=== PATIENT | female | born 1990 | race Caucasian/White ===

== ENCOUNTER 2016-12-30 04:15 | Inpatient (IN) | payer BC, OTHER ==
[~2016-12-30] VITALS: Ht 162.6 cm; Wt 62.6 kg
[2016-12-30] VITALS (67 sets, daily range): BP systolic 84–128; BP diastolic 64–111; PULSE 74–108; RESP 16–21; Ht 162.6 cm; Wt 62.6 kg
[2016-12-30] MEDS ORDERED: VECURONIUM 100 MG in DEXTROSE 5% 100 ML IV ONE (04:36)
[2016-12-30] MEDS ORDERED: SODIUM CHLORIDE 0.9% 500 ML BAG IV* STA (04:36)
[2016-12-30] MEDS ORDERED: PROPOFOL 100 ML IV STA (04:36)
[2016-12-30] MEDS ORDERED: NORepinephrine 8MG/250 ML (PMX 250 ML ONE (04:37)
[2016-12-30 04:46] LABS: ABNORMAL IP MESSAGE 1; BASOPHIL # 0.1 10^3/ul (0.0-0.1); BASOPHILS % 0.7 % (0.0-2.0); EOSINOPHILS # 0.2 10^3/ul (0.0-0.5); EOSINOPHILS % 1.4 % (0.0-7.0); HEMATOCRIT 38.8 % (37.0-47.0); HEMOGLOBIN 12.1 g/dl (12.0-16.0); LYMPHOCYTES # 9.3 10^3/ul (0.8-2.9); LYMPHOCYTES % 71.1 % (15.0-51.0); MEAN CORPUSCULAR HEMOGLOBIN 28.2 pg (29.0-33.0); MEAN CORPUSCULAR HGB CONC 31.2 g/dl (32.0-37.0); MEAN CORPUSCULAR VOLUME 90.4 fl (82.0-101.0); MEAN PLATELET VOLUME 13.2 fl (7.4-10.4); MONOCYTE # 0.6 10^3/ul (0.3-0.9); MONOCYTES % 4.5 % (0.0-11.0); NEUTROPHIL # 2.4 10^3/ul (1.6-7.5); NEUTROPHILS % 18.2 % (39.0-77.0); NUCLEATED RED BLOOD CELLS # 0.1 10^3/ul (0.0-0.0); NUCLEATED RED BLOOD CELLS% 0.6 /100WBC (0.0-0.0); PLATELET COUNT 187 10^3/UL (140-415); RED BLOOD COUNT 4.29 10^6/ul (4.20-5.40); RED CELL DISTRIBUTION WIDTH 12.3 % (11.5-14.5); WHITE BLOOD COUNT 13.1 10^3/ul (4.8-10.8)
[2016-12-30 04:47] LABS: POSITIVE DIFF @See below
--- NOTE | 2016-12-30 04:48 | ERA ---
ER Documentation Chief Complaint Date/Time DATE: 12/30/16 TIME: 04:45 Chief Complaint HPI This is an unfortunate 26-year-old female was brought in by rescue for cardiac arrest. Patient had a Juan Luis tube placed in the field. Patient was shocked multiple times in the field. Started on amiodarone in the field. No history per EMS. Family at the bedside after the faxes the patient has no medical problems and had no complaints prior to going to bed tonight. noticed at around 4 AM that the patient was unresponsive. Last seen normal around 2 AM. Patient went to bed. She did take ibuprofen earlier in the day for a headache. Headache had resolved prior to going to bed. ROS All systems reviewed and are negative except as per history of present illness. Physical Exam Physical Exam Const: [] Head: Atraumatic Eyes: Normal Conjunctiva. Pupils fixed ENT: Normal External Ears, Nose and Mouth. Neck: Full range of motion..~ No meningismus. Resp: Clear to auscultation bilaterally Cardio: Regular rate and rhythm, no murmurs Abd: Soft, non tender, non distended. Normal bowel sounds Skin: No petechiae or rashes Back: No midline or flank tenderness Ext: No cyanosis, or edema Neur: Obtunded Psych: Deferred Results 24 hrs Laboratory Tests Test 12/30/16 04:14 White Blood Count Pending Red Blood Count Pending Hemoglobin Pending Hematocrit Pending Mean Corpuscular Volume Pending Mean Corpuscular Hemoglobin Pending Mean Corpuscular Hemoglobin Concent Pending Red Cell Distribution Width Pending Platelet Count Pending Mean Platelet Volume Pending Current Medications Medications (Trade) Dose Ordered Sig/Tong Route PRN Reason Start Time Stop Time Status Last Admin Dose Admin Norepinephrine (Levophed) 250 ml @ ud STK-MED ONCE .ROUTE 12/30/16 04:37 12/30/16 04:38 DC Sodium Chloride 500 ml 500 ml ONCE STAT IV* 12/30/16 04:36 12/30/16 04:39 DC Propofol 100 ml @ 0 mls/hr ONCE STAT IV 12/30/16 04:36 12/30/16 04:39 DC Vecuronium [place] 100 mg/ Dextrose 100 ml @ 0 mls/hr Q0M ONCE IV 12/30/16 04:36 12/30/16 04:39 DC Norepinephrine (Levophed) 250 ml @ 1.875 mls/ hr TITRATE IV 12/30/16 05:00 Procedures/MDM Endotracheal Intubation by me: Pre assessment performed. See preceding note for details. Pre-oxygenation performed with 100% oxygen RSI: Performed w/o complication or hypoxic events. Medications as ordered. Blade: [Mac 4] ET Tube: [7.5 cm Depth: 22 cm at the lip Intubation confirmed by colorimetric CO2, equal breath sounds, quiet over the stomach. Chest X-ray 1V Interpreted by me: 3 cm above the marcin ET tube. Normal soft tissue, No pneumothorax. Central Line Placement by me: Patient consented, sterilely draped, full prep, gown, glove, mask, time out performed. Anesthesia: 1% lidocaine locally Location: Left subclavian Device: Multiple lumen Technique: Seldinger technique. Secured with suture. Results: Venous return from all ports with easy saline flush. No complications. [XOXOXO]Guide wire retrieved and disposed of. [Chest X-ray 1V Interpreted by me: Central line in SVC, Normal soft tissue, No evidence of pneumothorax.] Medical decision-making: This is an unfortunate 26-year-old female suffered a cardiopulmonary arrest in the field and again here in the ER. We were able to reestablish pulses for the patient. Central line and intubation took place. Patient started on levo fed for blood pressure control. Started on hypothermia protocol. Patient will be taken by on-call diamond saw operator to Decontamination Worker. Critical Care: Time: 35 minutes Treatments/Evaluations: Close monitoring and treatment of unstable vital signs, cardiorespiratory, and neurologic status, while maintaining tight balance of fluid, respiratory, and cardiac interventions. Departure Diagnosis: Primary Impression: Cardiac arrest Condition: Critical SPEEDY LANDIS Dec 30, 2016 04:48
[2016-12-30] MEDS ORDERED: LIDOCAINE 1% (MDV) 20 ML INJ ONE (04:54)
[2016-12-30] MEDS ORDERED: MIDAZOLAM 1 MG/ML 2 ML INJ ONE (04:54)
[2016-12-30] MEDS ORDERED: HEPARIN 1000 UNITS/ML 10 ML INJ ONE (04:54)
[2016-12-30] MEDS ORDERED: VERAPAMIL 5 MG INJ ONE (04:54)
[2016-12-30] MEDS ORDERED: FENTAnyl 50 MCG/ML VIAL ONE (04:54)
[2016-12-30] MEDS ORDERED: NITROGLYCERIN (IC) 100 MCG/ML INJ ONE (04:55)
[2016-12-30] MEDS ORDERED: NORepinephrine 8MG/250 ML (PMX 250 ML IV SCH (05:00)
[2016-12-30 05:02] LABS: ADD UMIC NO; UR ASCORBIC ACID NEGATIVE (NEGATIVE); UR BILIRUBIN (Dip) NEGATIVE (NEGATIVE); UR BLOOD (Dip) NEGATIVE (NEGATIVE); UR CLARITY SLIGHTLY CLOUDY (CLEAR); UR COLOR YELLOW (YELLOW); UR GLUCOSE (Dip) NEGATIVE (NEGATIVE); UR KETONES (Dip) NEGATIVE (NEGATIVE); UR LEUKOCYTE ESTERASE (Dip) NEGATIVE Leu/ul (NEGATIVE); UR MUCUS MODERATE /HPF (NONE SEEN); UR NITRITE (Dip) NEGATIVE (NEGATIVE); UR RBC 0 /HPF (0-5); UR SPECIFIC GRAVITY (Dip) 1.025 (1.003-1.030); UR TOTAL PROTEIN (Dip) NEGATIVE (NEGATIVE); UR UROBILINOGEN (Dip) NEGATIVE (NEGATIVE)
[2016-12-30 05:07] LABS: INR 1.46; PROTIME 17.8 Sec (12.2-14.2); PT RATIO 1.4
[2016-12-30 05:08] LABS: PARTIAL THROMBOPLASTIN TIME 34.7 Sec (25.0-35.0)
[2016-12-30 05:31] LABS: ALBUMIN 2.3 g/dl (3.3-4.9); ALBUMIN/GLOBULIN RATIO 1.04; CALCIUM 8.7 mg/dl (8.4-10.2); CREATININE 0.97 mg/dl (0.44-1.00); TOTAL PROTEIN 4.5 g/dl (6.1-8.1)
[2016-12-30 05:42] LABS: TROPONIN-I 0.04 ng/ml (0.00-0.12)
--- NOTE | 2016-12-30 06:01 | OPR ---
Date/Time of Note Date/Time of Note DATE: 12/30/16 TIME: 05:52 Operative Report Free Text/Dictation Procedure Date:12/30/2016 Alarm Operator/surgeon:Ag Glover MD. Procedures Performed: 1)Left heart catheterization with selective left and right coronary angiography. 2)Left ventricle angiography 3)Right femoral angiography and Perclose closure device. Pre-operative Diagnosis:cardiac arrest, Ventricular fibrillation Post-operative Diagnosis: same plus cardiomyopathy Indications: 26 yo F with a h/o migraines who brought in s/p VFib cardiac arrest. Emergent cardiac cath for evaluation of coronaries (concern for possible coronary dissection) Description of Procedure: After emergency consent, the patient was brought to the cardiac catheterization lab. The procedure site was prepped and draped in usual manner. 3 mL lidocaine was injected into the right groin. Next using the Seldinger technique, the 5 swazi sheath was inserted into the right femoral artery. Next using the JL3.5 and Caleb, selective angiography of the left and right coronary arteries were obtained. The pigtail was then advanced into the ventricle and hemodynamics obtained. Left ventricle angiography was obtained. Next all equipment was removed and hemostasis was obtained by Perclose after right femoral angiography. Findings: Anatomy/Hemodynamics: Left main: normal LAD: normal Diagonal: normal Circumflex: normal Obtuse marginal: normal RCA: normal PDA: normal PLV: normal LV angiography: EF 20% with severe global hypokinesis with regional variation ( worse in inferior wall) LV:-Ao: no gradient LVEDP:19 mmHg OF NOTE: non-heparinized saline was used throughout the procedure due to the pt' s history of headache and no CT head performed. Estimated blood loss<10 mL. Specimen: none Complications: none Assessment: VF cardiac arrest: most likely due to underlying cardiomyopathy. Normal coronaries by cath Cardiomyopathy: EF 20% by cath. Nonischemic. Likely had a pre-existing cardiomyopathy but sometimes can be post arrest as well Headache/migraines Plan: -stat head CT to eval for intracranial pathology though pt has known migraines -hypothermia protocol as pt remains minimally responsive -no need for ASA, statin -if BP tolerates will eventually need coreg and ACEI/ARB -ICD evaluation later in course of hospitalization depending on neurologic recovery Surgeon see signature line AG GLOVER Dec 30, 2016 06:01
[2016-12-30 06:02] LABS: POTASSIUM 2.7 mmol/L (3.5-5.1)
--- NOTE | 2016-12-30 06:02 | CONS ---
Date/Time of Note Date/Time of Note DATE: 12/30/16 TIME: 06:02 Assessment/Plan Assessment/Plan Chief Complaint/Hosp Course VF cardiac arrest: most likely due to underlying cardiomyopathy. Normal coronaries by cath Cardiomyopathy: EF 20% by cath. Nonischemic. Likely had a pre-existing cardiomyopathy but sometimes can be post arrest as well Afib: seen on presenting EKG, likely in setting of arrest. Now in sinus Headache/migraines -stat head CT to eval for intracranial pathology though pt has known migraines -hypothermia protocol as pt remains minimally responsive -no need for ASA, statin -if BP tolerates will eventually need coreg and ACEI/ARB -ICD evaluation later in course of hospitalization depending on neurologic recovery -would maintain on amiodarone drip for now until electrically stable for 24 hrs. -echo Problems: Consultation Date/Type/Reason Admit Date/Time Date of Consultation: Dec 30, 2016 Type of Consultation: Interventional Cardiology Reason for Consultation VF cardiac arrest Referring Provider: SPEEDY LANDIS Hx of Present Illness 26 yo F with a h/o migraines who was brought in after being found unresponsive by her . She had multiple episodes of VF requiring defibrillation in the field and was thought to have lateral ST elevations as well. In the ER she arrested again but was resuscitated. ER EKG did not show a STEMI but due to the her VF cardiac arrest, she was emergently taken to the laborer cement gun placing where she was found to have normal coronaries but an EF of 20%. She remains minimally responsive. Her notes she had a headache prior to sleeping which is not unusual for her but it had resolved by the time she slept. She has not had any viral illnesses or cardiac issues in the past. She had been losing weight by choice but apparently no drugs or supplements were used. unable to obtain Exam/Review of Systems Vital Signs Vitals Vital Signs Date Time Temp Pulse Resp B/P Pulse Ox O2 Delivery O2 Flow Rate FiO2 12/30/16 05:10 50 12/30/16 04:35 85 16 100 Exam Constitutional: No alert, No distress Head: atraumatic, normocephalic ENMT: other (intubated) Neck: No jvd (unableto assess ) Respiratory: clear to auscultation, diminished breath sounds Cardiovascular: regular rate and rhythm, No edema, No systolic murmur Gastrointestinal: non-tender, soft, No distended Musculoskeletal: nl extremities to inspection Extremities: normal pulses Neurological: No nl mental status, No nl speech Results EKG in ED: afib, nonspecific diffuse TW changes Result Diagram: 12/30/16 0414 Results 24 hrs Laboratory Tests Test 12/30/16 04:14 12/30/16 04:40 White Blood Count 13.1 H Red Blood Count 4.29 Hemoglobin 12.1 Hematocrit 38.8 Mean Corpuscular Volume 90.4 Mean Corpuscular Hemoglobin 28.2 L Mean Corpuscular Hemoglobin Concent 31.2 L Red Cell Distribution Width 12.3 Platelet Count 187 Mean Platelet Volume 13.2 H Neutrophils % 18.2 L Lymphocytes % 71.1 H Monocytes % 4.5 Eosinophils % 1.4 Basophils % 0.7 Nucleated Red Blood Cells % 0.6 H Neutrophils # 2.4 Lymphocytes # 9.3 H Monocytes # 0.6 Eosinophils # 0.2 Basophils # 0.1 Nucleated Red Blood Cells # 0.1 H Prothrombin Time 17.8 H Prothrombin Time Ratio 1.4 INR International Normalized Ratio 1.46 Activated Partial Thromboplast Time 34.7 Urine Color YELLOW Urine Clarity SLIGHTLY CLOUDY A Urine pH 5.0 Urine Specific [place] 1.025 Urine Ketones NEGATIVE Urine Nitrite NEGATIVE Urine Bilirubin NEGATIVE Urine Urobilinogen NEGATIVE Urine Leukocyte Esterase NEGATIVE Urine Microscopic RBC 0 Urine Microscopic WBC 1 Urine Mucus MODERATE Urine Hemoglobin NEGATIVE Urine Glucose NEGATIVE Urine Total Protein NEGATIVE Medications Medications Current Medications Norepinephrine (Levophed) 250 ml @ 1.875 mls/ hr TITRATE IV ; Start 12/30/16 at 05:00 IMAN ALVAREZ Dec 30, 2016 06:02
[2016-12-30] MEDS ORDERED: LORAZEPAM 2 MG INJ ONE (06:25)
[2016-12-30] MEDS ORDERED: morphine 2 MG INJ IV PRN (06:30)
[2016-12-30] MEDS ORDERED: MIDAZOLAM (DRIP) 50 mg/50 mL 50 ML IV ONE (06:32)
[2016-12-30] MEDS: SOD CHLORIDE 0.9% 1,000 ML IV SCH ×2 (06:54→12:12)
[2016-12-30] MEDS ORDERED: ONDANSETRON 4 MG INJ IV PRN (07:00)
[2016-12-30] MEDS ORDERED: EPINEPHrine 0.1 MG/ML SYG ONE (07:00)
[2016-12-30] MEDS ORDERED: ACETAMINOPHEN 650 MG SUPP PR PRN ×2 (07:00)
[2016-12-30] MEDS ORDERED: NA BICARBONATE 8.4% 50 ML SYG ONE (07:00)
[2016-12-30] MEDS ORDERED: LIDOCAINE 100 MG SYRINGE ONE (07:00)
[2016-12-30] MEDS ORDERED: MEPERIDINE 25 MG INJ IV PRN ×2 (07:00)
[2016-12-30] MEDS ORDERED: CA CHLORIDE 10% 10 ML SYRINGE ONE (07:00)
[2016-12-30] MEDS ORDERED: LORAZEPAM 2 MG INJ IV PRN ×2 (07:00→07:30)
[2016-12-30] MEDS ORDERED: ACETAMINOPHEN 650MG/20.3ML CUP PO PRN (07:00)
[2016-12-30] MEDS ORDERED: VECURONIUM 100 MG in DEXTROSE 5% 100 ML IV SCH (07:30)
[2016-12-30] MEDS: ACCU-CHEK XX SCH ×17 (07:30→23:44)
[2016-12-30] MEDS ORDERED: POTASSIUM CHLORIDE 250 ML ONE (07:38)
[2016-12-30] MEDS ORDERED: INSULIN HUMAN REGULAR 100 UNIT in SOD CHLORIDE 0.9% 99 ML IV SCH (08:00)
[2016-12-30] MEDS ORDERED: POTASSIUM CHLORIDE 250 ML IVPB ONE (08:00)
--- NOTE | 2016-12-30 08:06 | HP ---
Date/Time of Note Date/Time of Note DATE: 12/30/16 TIME: 07:53 Assessment/Plan VTE Prophylaxis VTE Prophylaxis Intervention: SCD's Assessment/Plan Chief Complaint/Hosp Course This is a 26-year-old female being admitted to the ICU floor for: #1 cardiac arrest: Etiology unknown at this time ACLS was performed on the patient with ROSC. Patient was intubated. She was taken to the [facility] [employer] where she was found to have normal coronaries however there was an ejection fraction was approximately 20% Which could be the result of viral cardiomyopathy or secondary to arrest. Will obtain cardiac enzymes. Will check an echocardiogram. Cardiology is already on consult. Will initiate hypothermia protocol at this time however we will be obtaining a stat CAT scan of the head and if there is any sign of any bleeding likely will need to stop the hypothermia protocol as would be a contraindication. IV sedation with versed. Consult pulm. #2 Headache: patient was complaining of a headache prior to her going into arrest. Will order a stat CAT scan of the head. Will consult neurology. #3 Hypokalemia:. Could have contributed to #1, will replete. #4 Unexplained weight loss: Will check urine drug screen. denies patient was using any drugs that he knows of and denies any medications for weight loss. Will need to work up for possible underlying malignancy when patient is more stable and off of hypothermia protocol. #4 DVT and GI prophylaxis: SCDs,Protonix Further treatment strategy will be implemented as per the clinical course Problems: HPI/ROS Admit Date/Time Admit Date/Time Hx of Present Illness Chief complaint: Unresponsive This is a 26 yo F with a h/o migraines who was brought in after being found unresponsive by her . She had multiple episodes of VF requiring defibrillation in the field and was thought to have lateral ST elevations as well. In the ER she arrested again but was resuscitated. ER EKG did not show a STEMI but due to the her VF cardiac arrest, she was emergently taken to the [facility] [employer] laborer where she was found to have normal coronaries as per cardiology but an EF of 20%. Patient has been does state that she was complaining of a headache prior to undergoing unresponsive. He does state that over the course of the past 2 months she has lost a lot of weight unintentionally. She has gone from a size 8 to a size 2. The also states that approximately 3 months ago she was sick with a very bad cold for approximately 3 weeks did not take any antibiotics or anything at that time she did appear very unwell at that time. Allergies: NKDA Medications: See KIKA MIRANDA Subjective hx not possible: pt critical status (Patient currently intubated, unresponsive) PMH/Family/Social Past Medical History Migraines Past Surgical History Past Surgical Hx: no surgical history Family History Significant Family History: no pertinent family hx Social History Alcohol Use: none Smoking Status: Never smoker Drug Use: none Exam/Review of Systems Vital Signs Vitals Vital Signs Date Time Temp Pulse Resp B/P Pulse Ox O2 Delivery O2 Flow Rate FiO2 12/30/16 05:45 72 16 100 50 Exam Exam General: Patient is currently intubated on the [employer] table HEENT: Intubated, nonresponsive. Neck: No rigidity or meningismus Chest: Nontender Lungs: Clear to auscultation bilaterally no crackles rales or wheezing Heart: Normal S1-S2, Regular rhythm and rate. No overt murmurs appreciated on auscultation Abdomen: Soft , nontender, nondistended , bowel sounds are present. No guarding no rebound tenderness , No masses or organomegaly. No costovertebral temporal angle mass Extremities: Normal to inspection, no edema no cyanosis Neurologic: Unable to assess as patient is currently intubated and nonresponsive. Labs Result Diagram: 12/30/16 0414 12/30/16 0440 Medications Medications Current Medications Norepinephrine (Levophed) 250 ml @ 1.875 mls/ hr TITRATE IV ; Start 12/30/16 at 05:00 Miscellaneous Information (* Miscellaneous Pharmacy Order) HOLD all METFORMIN ... ONCE ONCE XX ; Start 12/30/16 at 06:30; Stop 12/30/16 at 06:31; Status UNV Morphine Sulfate (morphine) 2 mg Q2H PRN IV FOR NON CARDIAC PAIN (4-10); Start 12/30/16 at 06:30; Status UNV Ondansetron HCl (Zofran Inj) 4 mg Q6H PRN IV NAUSEA AND/OR VOMITING; Start at 07:00; Status UNV Acetaminophen (Tylenol Supp) 650 mg Q4H PRN MO PAIN LEVEL 1-3 OR FEVER; Start 12/30/16 at 07:00; Status UNV Lorazepam (Ativan) 1 mg Q2H PRN IV ANXIETY; Start 12/30/16 at 07:00; Status UNV Pantoprazole 40 mg 40 mg DAILY@06 IV ; Start 12/31/16 at 06:00; Status UNV Sodium Chloride (NS) 1,000 ml @ 60 mls/hr [id number] IV ; Start 12/30/16 at 06:54 ; Status UNV Acetaminophen (Tylenol Supp) 650 mg Q4H PRN MO TEMP > 37C; Start 12/30/16 at 07 :00; Status UNV Acetaminophen (Tylenol Liquid) 650 mg Q4H PRN PO TEMP > 37C; Start 12/30/16 at 07:00; Status UNV Acetaminophen (Tylenol Supp) 500 mg Q6H MO ; Start 12/31/16 at 07:00; Status UNV Acetaminophen (Tylenol Liquid) 500 mg Q6H PO ; Start 12/31/16 at 07:00; Status UNV Meperidine HCl (Demerol) 12.5 mg Q4H PRN IV POST OPERATIVE SHIVERING; Start at 07:00; Status UNV Meperidine HCl (Demerol) 25 mg Q4H PRN IV POST OPERATIVE SHIVERING; Start 12/30 at 07:00; Status UNV Eye Lubricant (Akwa Oint) 1 applic Q6 BOTH EYES ; Start 12/30/16 at 12:00; Status UNV Eye Lubricant (Artificial Tears Oph) 2 drop Q6 BOTH EYES ; Start 12/30/16 at 12: 00; Status UNV Lorazepam 2 mg 2 mg Q6H PRN IV seizure; Start 12/30/16 at 07:30; Status UNV Vecuronium [place] 100 mg/ Dextrose 100 ml @ 0 mls/hr TITRATE IV ; Start at 07:30; Status UNV Fentanyl (Sublimaze) 100 ml @ 2.5 mls/hr TITRATE IV ; Start 12/30/16 at 07:30; Status UNV Miscellaneous Information (* Miscellaneous Pharmacy Order) Discontinue all previ... PROTOCOL ONCE XX ; Start 12/30/16 at 07:30; Stop 12/30/16 at 07:31; Status UNV Diagnostic Test (Pha) 1 ea 1 ea Q1H XX ; Start 12/30/16 at 07:30; Status UNV Potassium Chloride 250 ml @ 62.5 mls/hr ONCE ONCE IVPB ; Start 12/30/16 at 08: 00; Stop 12/30/16 at 11:59; Status UNV Midazolam HCl (Versed) 50 ml @ 1 mls/hr TITRATE IV ; Start 12/30/16 at 08:00; Status UNV SANDOVAL AMBROSE Dec 30, 2016 08:05
[2016-12-30] MEDS ORDERED: DEXTROSE 50% 50 ML SYRINGE IV PRN ×2 (09:00)
[2016-12-30] MEDS ORDERED: GLUCOSE GEL 15 GRAM TUBE BUCCAL PRN (09:00)
[2016-12-30] MEDS ORDERED: GLUCAGON 1 MG INJ IM PRN (09:00)
[2016-12-30] MEDS ORDERED: GLUCOSE GEL 15 GRAM TUBE PO PRN ×2 (09:00)
--- NOTE | 2016-12-30 09:08 | RADRPT ---
PROCEDURE: CHEST - 1 VIEW CLINICAL INDICATION: 26-year-old female with chest pain/CodeSTEMI. TECHNIQUE: A single frontal AP supine portable view of the chest was performed. The images were reviewed on a PACS workstation. COMPARISON: None. FINDINGS: There is an endotracheal tube identified with the tip approximately 4.9 cm above the marcin. There i s a left subclavian central line with the tip at the cavoatrial junction region. The cardiomediastin al silhouette has a normal appearance. There is no evidence for an infiltrate. The pulmonary vascul arity is within normal limits. There is no evidence for pneumothorax or pneumomediastinum. The osseo us structures are intact. IMPRESSION: 1. No evidence for active cardiopulmonary disease. 2. Endotracheal tube with the tip in the [id number]-ond trachea. 3. Left subclavian central line with the tip at the cavoatrial junction region. .Derrick Thrasher MD, MD Date Time Electronically viewed and signed by .Derrick Thrasher MD, on 12/30/2016 05:32 .M/
[2016-12-30] MEDS ORDERED: FENTAnyl (DRIP) 1000 mcg/100mL 100 ML IV ONE (09:14)
[2016-12-30] MEDS: FENTAnyl (DRIP) 1000 mcg/100mL 100 ML IV SCH ×2 (09:22→23:01)
[2016-12-30] MEDS: VECURONIUM 100 MG in DEXTROSE 5% 100 ML IV SCH ×2 (09:26→09:45)
[2016-12-30 09:43] LABS: AADO2 Arterial 63.1 mmHg (7.0-24.0); Allen Test ACCEPTAB; Arterial Base Excess -13.3 mmol/L (-3.0-3); Arterial COHb 0.3 % (0.0-3.0); Arterial Fraction of Oxyhgb 98.8 % (93.0-99.0); Arterial HCO3 13.8 mmol/L (22.0-26.0); Arterial MetHb 0.4 % (0.0-1.5); Arterial Total Hemglobin 12.1 g/dl (12.0-18.0); MODE VENT - AC
[2016-12-30] MEDS: POTASSIUM CHLORIDE 250 ML IVPB SCH ×3 (09:46→17:14)
--- NOTE | 2016-12-30 09:47 | RADRPT ---
PROCEDURE: XR Abdomen. CLINICAL INDICATION: Nasogastric tube placement TECHNIQUE: A single AP view of the abdomen was obtained. COMPARISON: None. FINDINGS: The tip of the enteric tube projects over the left upper quadrant. There is a nonobstructive bowel gas pattern. Contrast from prior examination is noted within the erik al collecting system and bladder. No abnormal soft tissue calcifications are seen. The visualized portions of the lung bases are clear. The osseous structures are unremarkable. IMPRESSION: The tip of the nasogastric tube is within the gastric lumen. RPTAT: HH .Antonieta Lugo MD, Date Time Electronically viewed and signed by .Antonieta Lugo MD, on 12/30/2016 08:30 .G/
--- NOTE | 2016-12-30 09:48 | RADRPT ---
PROCEDURE: CT Brain without contrast. CLINICAL INDICATION: Hypothermia, altered level of consciousness TECHNIQUE: A CT of the brain was performed on a [employer] 64-slice CT scanner utilizing axial imaging from the skull base through the vertex without IV contrast. Multiplanar reformatted images were made. Images were reviewed on a PACS workstation. The CTDIvol is 45.01 mGy and the DLP is 72 0.23 mGycm. One or more of the following dose reduction techniques were used: automated exposure co ntrol, adjustment of the mA and/or kV according to patient size, or use of iterative reconstruction technique. COMPARISON: None FINDINGS: Increased attenuation of the dural sinuses and intracerebral vasculature may be related to dehydrati on, elevated hematocrit, or polycythemia.. There is no definite evidence of acute intracranial hemor rhage, mass effect, or midline shift. No extra-axial fluid collection is seen. The ventricles and s ulci are normal in size and configuration. The density of the brain is normal, and the sarmiento white ma tter differentiation appears well-preserved. The brainstem and posterior fossa are normal. The visua lized paranasal sinuses are clear. The calvarium is normal. There is fluid in the nasopharynx. Th e nasal pharyngeal wall appears thickened. IMPRESSION: 1. No evidence of acute intracranial pathology. 2. Hyperdense intracerebral vessels and dural sinuses, likely related to recent contrast administrat ion, dehydration, elevated hematocrit, or polycythemia. 3. Fluid in the nasopharynx and nasopharyngeal wall thickening. Correlate clinically. RPTAT: HCNS Physician Cuate Date Time Electronically viewed and signed by Physician Cuate on 12/30/2016 06:34 RAJENDRA/
[2016-12-30] MEDS ORDERED: LEVETIRACETAM 1000 MG (PMX) 100 ML IVPB ONE (10:00)
--- NOTE | 2016-12-30 11:26 | CONS ---
Date/Time of Note Date/Time of Note DATE: 12/30/16 TIME: 11:18 Assessment/Plan Assessment/Plan Additional Assessment/Plan Chest x-ray was reviewed from today which is essentially clear. CT of the head is unremarkable. Current ventilator settings are AC of 16, tidal volume 500, PEEP of 0, 50% FiO2. Patient currently on Versed drip at 3 mg/h. Assessment recommendations; 1. Patient admitted with cardiac arrest etiology is unclear, possibly hypokalemic in etiology. Patient underwent emergent coronary angiography which was negative. However patient has a poor EF likely from cardiac arrest. 2. No prior medical history other than recent weight loss. Continue current treatment. Ventilator settings have been adjusted. Initiate paralytic administration as long as patient is on hypothermia protocol. Once the patient is off hypothermia protocol she will be evaluated for adequacy of mental status. Meanwhile administer Keppra and Depakote. I did have a detailed discussion with the patient's at bedside and answered all his questions. Prognosis is guarded and depends entirely upon adequate mental status recovery. 40 minutes of critical care time was spent evaluating the patient. Consultation Date/Type/Reason Admit Date/Time Date of Consultation: Dec 30, 2016 Type of Consultation: Pulmonary/critical care Reason for Consultation Consultation requested for evaluation of respiratory failure. Patient status post cardiac arrest. History of presenting any; patient is a young 26-year-old white lady who was brought into the emergency room with cardiac arrest which she sustained at home. Patient's the patient has not been feeling well in terms of significant weight loss over the last several months. However last evening he went to wake her up and the patient was unresponsive patient had no pulse EMS for quadrant and the patient was attended to by them and long CPR was done and removed to the hospital with revival of vital signs. By the time I saw the patient the patient is in ICU, orally intubated, on hypothermia protocol. Patient having occasional myoclonic jerking. Past medical history; unremarkable. Except for recent weight loss of unknown etiology. Patient has not sought any medical help for that. Medications; reviewed. Allergies; none. Social history; most of any smoking alcohol or drug abuse. Family history; patient is , has no children. Occupation history; patient works in a physician's office. Review systems; unable to be obtained. General exam; young woman, orally intubated, having occasional facial myoclonic jerking. Past Surgical History Past Surgical Hx: no surgical history Social History Alcohol Use: none Smoking Status: Never smoker Drug Use: none Exam/Review of Systems Vital Signs Vitals Vital Signs Date Time Temp Pulse Resp B/P Pulse Ox O2 Delivery O2 Flow Rate FiO2 12/30/16 08:45 95.4 92 16 126/92 100 Mechanical Ventilator 12/30/16 05:45 50 Exam HEENT exam; supple neck, no JVD. No lymphadenopathy. Midline trachea. No thyromegaly. Orally intubated. Patient has fair dentition. Pupils are small bilaterally. Chest exam; clear to auscultation. S1-S2 audible, no murmurs. Regular rhythm. Abdomen exam; soft, no organomegaly. Bowel sounds are absent. Abdomen is nondistended. Extremity exam; no peripheral edema. TABLE TOP TILE SETTER exam; patient is sedated, having myoclonic jerking involving facial muscles. Results Result Diagram: 12/30/16 0414 12/30/16 0440 Results 24 hrs Laboratory Tests Test 12/30/16 04:14 12/30/16 04:36 12/30/16 04:40 12/30/16 07:20 White Blood Count 13.1 H Red Blood Count 4.29 Hemoglobin 12.1 Hematocrit 38.8 Mean Corpuscular Volume 90.4 Mean Corpuscular Hemoglobin 28.2 L Mean Corpuscular Hemoglobin Concent 31.2 L Red Cell Distribution Width 12.3 Platelet Count 187 Mean Platelet Volume 13.2 H Neutrophils % 18.2 L Lymphocytes % 71.1 H Monocytes % 4.5 Eosinophils % 1.4 Basophils % 0.7 Nucleated Red Blood Cells % 0.6 H Neutrophils # 2.4 Lymphocytes # 9.3 H Monocytes # 0.6 Eosinophils # 0.2 Basophils # 0.1 Nucleated Red Blood Cells # 0.1 H Blood Gas Specimen Source Blood arterial Arterial Blood Date Drawn 12/30/2016 4:40:44 AM Arterial Blood pH (Temp corrected) 7.201 *L Arterial Blood pCO2 (Temp correct) 36.0 Arterial Blood pO2 (Temp corrected) 613.9 H Arterial Blood HCO3 13.8 L Arterial Blood Base Excess -13.3 L Arterial Blood Oxygen Saturation 99.5 H Virgilio Test ACCEPTAB Arterial Blood Gas Puncture Site Right Radial Arterial Blood Carboxyhemoglobin 0.3 Arterial Blood Methemoglobin 0.4 Blood Gas A-a O2 Differential 63.1 H Oxyhemoglobin Percent 98.8 Total Hemoglobin 12.1 Blood Gas Temperature 37.0 Blood Gas Respiration Rate 16.0 Blood Gas Actual Respiration Rate 24 Blood Gas Modality VENT - AC FiO2 100.0 Blood Gas Tidal Volume 500.0 Blood Gas Inspiratory Pressure 14.0 Blood Gas Critical Value Read Back Nathaly LANDIS MD Blood Gas Notified Whom KM Blood Gas Notified Time 12/30/2016 4:52:43 AM Prothrombin Time 17.8 H Prothrombin Time Ratio 1.4 INR International Normalized Ratio 1.46 Activated Partial Thromboplast Time 34.7 Urine Color YELLOW Urine Clarity SLIGHTLY CLOUDY A Urine pH 5.0 Urine Specific [place] 1.025 Urine Ketones NEGATIVE Urine Nitrite NEGATIVE Urine Bilirubin NEGATIVE Urine Urobilinogen NEGATIVE Urine Leukocyte Esterase NEGATIVE Urine Microscopic RBC 0 Urine Microscopic WBC 1 Urine Mucus MODERATE Urine Hemoglobin NEGATIVE Urine Glucose NEGATIVE Urine Total Protein NEGATIVE Sodium Level 140 Potassium Level 2.7 *L Chloride Level 112 H Carbon Dioxide Level 15 L Anion Gap 16 Blood Urea Nitrogen 13 Creatinine 0.97 Glucose Level 288 H Calcium Level 8.7 Phosphorus Level 10.0 H Magnesium Level 2.0 Total Bilirubin 0.0 L Direct Bilirubin 0.00 Indirect Bilirubin 0.0 Aspartate Amino Transf (AST/SGOT) 173 H Alanine Aminotransferase (ALT/SGPT) 198 H Alkaline Phosphatase 35 L Troponin I 0.040 Total Protein 4.5 L Albumin 2.3 L Globulin 2.20 Albumin/Globulin Ratio 1.04 Bedside Glucose 193 Medications Medications Current Medications Norepinephrine (Levophed) 250 ml @ 1.875 mls/ hr TITRATE IV ; Start 12/30/16 at 05:00 Morphine Sulfate (morphine) 2 mg Q2H PRN IV FOR NON CARDIAC PAIN (4-10); Start 12/30/16 at 06:30 Ondansetron HCl (Zofran Inj) 4 mg Q6H PRN IV NAUSEA AND/OR VOMITING; Start at 07:00 Acetaminophen (Tylenol Supp) 650 mg Q4H PRN [place] PAIN LEVEL 1-3 OR FEVER; Start 12/30/16 at 07:00 Lorazepam (Ativan) 1 mg Q2H PRN IV ANXIETY Last administered on 12/30/16t 09:41 ; Admin Dose 1 MG; Start 12/30/16 at 07:00 Famotidine 20 mg 20 mg DAILY IV ; Start 12/31/16 at 09:00 Sodium Chloride (NS) 1,000 ml @ 60 mls/hr [id number] IV Last administered on 12/30 06:54; Admin Dose 60 MLS/HR; Start 12/30/16 at 06:54 Acetaminophen (Tylenol Supp) 650 mg Q4H PRN [place] TEMP > 37C; Start 12/30/16 at 07 :00 Acetaminophen (Tylenol Liquid) 650 mg Q4H PRN PO TEMP > 37C; Start 12/30/16 at 07:00 Acetaminophen (Tylenol Supp) 500 mg Q6H [place] ; Start 12/31/16 at 07:00 Acetaminophen (Tylenol Liquid) 500 mg Q6H PO ; Start 12/31/16 at 07:00 Meperidine HCl (Demerol) 12.5 mg Q4H PRN IV POST OPERATIVE SHIVERING; Start at 07:00 Meperidine HCl (Demerol) 25 mg Q4H PRN IV POST OPERATIVE SHIVERING; Start 12/30 at 07:00 Eye Lubricant (Akwa Oint) 1 applic Q6 BOTH EYES ; Start 12/30/16 at 12:00 Eye Lubricant (Artificial Tears Oph) 2 drop Q6 BOTH EYES ; Start 12/30/16 at 12: 00 Lorazepam 2 mg 2 mg Q6H PRN IV seizure Last administered on 12/30/16 09:41; Admin Dose 2 MG; Start 12/30/16 at 07:30 Fentanyl (Sublimaze) 100 ml @ 2.5 mls/hr TITRATE IV Last administered on 09:22; Admin Dose 2.5 MLS/HR; Start 12/30/16 at 07:30 Diagnostic Test (Pha) 1 ea 1 ea Q1H XX ; Start 12/30/16 at 07:30 Midazolam HCl 50 ml @ 1 mls/hr TITRATE IV ; Start 12/30/16 at 08:00 Potassium Chloride 250 ml @ 62.5 mls/hr Q4H IVPB Last administered on 09:46; Admin Dose 62.5 MLS/HR; Start 12/30/16 at 09:00; Stop 12/30/16 at 16 :59 Vecuronium [place]/Dextrose (Norcuron/D5W) 100 ml @ 3.13 mls/hr TITRATE IV Last administered on 12/30/16t 09:45; Admin Dose 3.13 MLS/HR; Start 12/30/16 at 09:00 Miscellaneous Information 1 ea NOTE XX ; Start 12/30/16 at 09:00 Glucose (Glutose) 15 gm Q15M PRN PO DECREASED GLUCOSE; Start 12/30/16 at 09:00 Glucose (Glutose) 22.5 gm Q15M PRN PO DECREASED GLUCOSE; Start 12/30/16 at 09: 00 Dextrose (D50w Syringe) 25 ml Q15M PRN IV DECREASED GLUCOSE; Start 12/30/16 at 09:00 Dextrose (D50w Syringe) 50 ml Q15M PRN IV DECREASED GLUCOSE; Start 12/30/16 at 09:00 Glucagon (Glucagen) 1 mg Q15M PRN IM DECREASED GLUCOSE; Start 12/30/16 at 09:00 Glucose 15 gm 15 gm Q15M PRN BUCCAL DECREASED GLUCOSE; Start 12/30/16 at 09:00 Valproate Sodium 500 mg/Dextrose 55 ml @ 55 mls/hr Q8 IVPB ; Start 12/30/16 at 10:30 Levetiracetam/ Sodium Chloride (Keppra Iv/NS) 107.5 ml @ 430 mls/hr Q12 IVPB ; Start 12/30/16 at 12:30 PRABHAKAR BRIGGS Dec 30, 2016 11:26
[2016-12-30] MEDS: VALPROATE INJ 500 MG in DEXTROSE 5% 50 ML IVPB SCH ×3 (11:44→22:16)
--- NOTE | 2016-12-30 11:44 | CONS ---
Date/Time of Note Date/Time of Note DATE: 12/30/16 TIME: 11:37 Assessment/Plan Assessment/Plan Chief Complaint/Hosp Course 26 yo female w recent unintentional weight loss, hypokalemia (K: 2.7) admitted cardiac arrest with post arrest cardiomyopathy currently being treated with hypothermia protocol on VPA, Keppra and Versed drip for seizures. -EEG after hypothermia completed tomorrow am -MRI Brain w/o contrast when stable -Increase Versed for further seizures noted -malignancy work up when more stable -will continue to follow Problems: Consultation Date/Type/Reason Admit Date/Time 12/30/16 Date of Consultation: Dec 30, 2016 Type of Consultation: Neurology Reason for Consultation post cardiac arrest seizures Referring Provider: SANDOVAL AMBROSE Hx of Present Illness 26 year old female with history of unintentional weight loss over the last several months, migraine headaches, recent heavy periods and dysfunctional bleeding admitted with cardiac arrest unclear etiology labs significant for hypokalemia received coronary angiography negative for occlusive disease with EF : 20%. Per history obtained from he had awoken in the middle of the night noted his was difficult to arouse after he returned to bed from using the bathroom (usually she awakens) unclear amount of time she was down for. Initial Head CT showed dense vessels no areas of ischemia identified. She was admitted to the ICU early this morning notable seizure activity placed on Versed drip, Fentanyl drip, Keppra 1 gram loaded and Depakote 500 mg q8h also initiated. No further seizures have been noted. Subjective hx not possible: pt non-verbal, pt critical Past Medical History Medical History: no pertinent history Past Surgical History Past Surgical Hx: no surgical history Social History Alcohol Use: none Smoking Status: Never smoker Drug Use: none Exam/Review of Systems Vital Signs Vitals Vital Signs Date Time Temp Pulse Resp B/P Pulse Ox O2 Delivery O2 Flow Rate FiO2 12/30/16 08:45 95.4 92 16 126/92 100 Mechanical Ventilator 12/30/16 05:45 50 Exam intubated sedated limited exam no seizures noted CN: pupils 1 mm non reactive heavily sedated absent corneals absent gag no purposeful movement depressed reflexes mute toes Results Result Diagram: 12/30/16 0414 12/30/16 0440 Results 24 hrs Laboratory Tests Test 12/30/16 04:14 12/30/16 04:36 12/30/16 04:40 12/30/16 07:20 White Blood Count 13.1 H Red Blood Count 4.29 Hemoglobin 12.1 Hematocrit 38.8 Mean Corpuscular Volume 90.4 Mean Corpuscular Hemoglobin 28.2 L Mean Corpuscular Hemoglobin Concent 31.2 L Red Cell Distribution Width 12.3 Platelet Count 187 Mean Platelet Volume 13.2 H Neutrophils % 18.2 L Lymphocytes % 71.1 H Monocytes % 4.5 Eosinophils % 1.4 Basophils % 0.7 Nucleated Red Blood Cells % 0.6 H Neutrophils # 2.4 Lymphocytes # 9.3 H Monocytes # 0.6 Eosinophils # 0.2 Basophils # 0.1 Nucleated Red Blood Cells # 0.1 H Blood Gas Specimen Source Blood arterial Arterial Blood Date Drawn 12/30/2016 4:40:44 AM Arterial Blood pH (Temp corrected) 7.201 *L Arterial Blood pCO2 (Temp correct) 36.0 Arterial Blood pO2 (Temp corrected) 613.9 H Arterial Blood HCO3 13.8 L Arterial Blood Base Excess -13.3 L Arterial Blood Oxygen Saturation 99.5 H Virgilio Test ACCEPTAB Arterial Blood Gas Puncture Site Right Radial Arterial Blood Carboxyhemoglobin 0.3 Arterial Blood Methemoglobin 0.4 Blood Gas A-a O2 Differential 63.1 H Oxyhemoglobin Percent 98.8 Total Hemoglobin 12.1 Blood Gas Temperature 37.0 Blood Gas Respiration Rate 16.0 Blood Gas Actual Respiration Rate 24 Blood Gas Modality VENT - AC FiO2 100.0 Blood Gas Tidal Volume 500.0 Blood Gas Inspiratory Pressure 14.0 Blood Gas Critical Value Read Back Nathaly LANDIS MD Blood Gas Notified Whom Blood Gas Notified Time 12/30/2016 4:52:43 AM Prothrombin Time 17.8 H Prothrombin Time Ratio 1.4 INR International Normalized Ratio 1.46 Activated Partial Thromboplast Time 34.7 Urine Color YELLOW Urine Clarity SLIGHTLY CLOUDY A Urine pH 5.0 Urine Specific [place] 1.025 Urine Ketones NEGATIVE Urine Nitrite NEGATIVE Urine Bilirubin NEGATIVE Urine Urobilinogen NEGATIVE Urine Leukocyte Esterase NEGATIVE Urine Microscopic RBC 0 Urine Microscopic WBC 1 Urine Mucus MODERATE Urine Hemoglobin NEGATIVE Urine Glucose NEGATIVE Urine Total Protein NEGATIVE Sodium Level 140 Potassium Level 2.7 *L Chloride Level 112 H Carbon Dioxide Level 15 L Anion Gap 16 Blood Urea Nitrogen 13 Creatinine 0.97 Glucose Level 288 H Calcium Level 8.7 Phosphorus Level 10.0 H Magnesium Level 2.0 Total Bilirubin 0.0 L Direct Bilirubin 0.00 Indirect Bilirubin 0.0 Aspartate Amino Transf (AST/SGOT) 173 H Alanine Aminotransferase (ALT/SGPT) 198 H Alkaline Phosphatase 35 L Troponin I 0.040 Total Protein 4.5 L Albumin 2.3 L Globulin 2.20 Albumin/Globulin Ratio 1.04 Bedside Glucose 193 Test 12/30/16 11:14 Bedside Glucose 140 Medications Medications Current Medications Norepinephrine (Levophed) 250 ml @ 1.875 mls/ hr TITRATE IV ; Start 12/30/16 at 05:00 Morphine Sulfate (morphine) 2 mg Q2H PRN IV FOR NON CARDIAC PAIN (4-10); Start 12/30/16 at 06:30 Ondansetron HCl (Zofran Inj) 4 mg Q6H PRN IV NAUSEA AND/OR VOMITING; Start at 07:00 Acetaminophen (Tylenol Supp) 650 mg Q4H PRN [place] PAIN LEVEL 1-3 OR FEVER; Start 12/30/16 at 07:00 Lorazepam (Ativan) 1 mg Q2H PRN IV ANXIETY Last administered on 12/30/16 09:41 ; Admin Dose 1 MG; Start 12/30/16 at 07:00 Famotidine 20 mg 20 mg DAILY IV ; Start 12/31/16 at 09:00 Sodium Chloride (NS) 1,000 ml @ 60 mls/hr [id number] IV Last administered on 12/30 06:54; Admin Dose 60 MLS/HR; Start 12/30/16 at 06:54 Acetaminophen (Tylenol Supp) 650 mg Q4H PRN [place] TEMP > 37C; Start 12/30/16 at 07 :00 Acetaminophen (Tylenol Liquid) 650 mg Q4H PRN PO TEMP > 37C; Start 12/30/16 at 07:00 Acetaminophen (Tylenol Supp) 500 mg Q6H [place] ; Start 12/31/16 at 07:00 Acetaminophen (Tylenol Liquid) 500 mg Q6H PO ; Start 12/31/16 at 07:00 Meperidine HCl (Demerol) 12.5 mg Q4H PRN IV POST OPERATIVE SHIVERING; Start at 07:00 Meperidine HCl (Demerol) 25 mg Q4H PRN IV POST OPERATIVE SHIVERING; Start 12/30 at 07:00 Eye Lubricant (Akwa Oint) 1 applic Q6 BOTH EYES ; Start 12/30/16 at 12:00 Eye Lubricant (Artificial Tears Oph) 2 drop Q6 BOTH EYES ; Start 12/30/16 at 12: 00 Lorazepam 2 mg 2 mg Q6H PRN IV seizure Last administered on 12/30/16 09:41; Admin Dose 2 MG; Start 12/30/16 at 07:30 Fentanyl (Sublimaze) 100 ml @ 2.5 mls/hr TITRATE IV Last administered on 09:22; Admin Dose 2.5 MLS/HR; Start 12/30/16 at 07:30 Diagnostic Test (Pha) 1 ea 1 ea Q1H XX ; Start 12/30/16 at 07:30 Midazolam HCl 50 ml @ 1 mls/hr TITRATE IV ; Start 12/30/16 at 08:00 Potassium Chloride 250 ml @ 62.5 mls/hr Q4H IVPB Last administered on 09:46; Admin Dose 62.5 MLS/HR; Start 12/30/16 at 09:00; Stop 12/30/16 at 16 :59 Vecuronium [place]/Dextrose (Norcuron/D5W) 100 ml @ 3.13 mls/hr TITRATE IV Last administered on 12/30/16 09:45; Admin Dose 3.13 MLS/HR; Start 12/30/16 at 09:00 Miscellaneous Information 1 ea NOTE XX ; Start 12/30/16 at 09:00 Glucose (Glutose) 15 gm Q15M PRN PO DECREASED GLUCOSE; Start 12/30/16 at 09:00 Glucose (Glutose) 22.5 gm Q15M PRN PO DECREASED GLUCOSE; Start 12/30/16 at 09: 00 Dextrose (D50w Syringe) 25 ml Q15M PRN IV DECREASED GLUCOSE; Start 12/30/16 at 09:00 Dextrose (D50w Syringe) 50 ml Q15M PRN IV DECREASED GLUCOSE; Start 12/30/16 at 09:00 Glucagon (Glucagen) 1 mg Q15M PRN IM DECREASED GLUCOSE; Start 12/30/16 at 09:00 Glucose 15 gm 15 gm Q15M PRN BUCCAL DECREASED GLUCOSE; Start 12/30/16 at 09:00 Valproate Sodium 500 mg/Dextrose 55 ml @ 55 mls/hr Q8 IVPB ; Start 12/30/16 at 10:30 Levetiracetam/ Sodium Chloride (Keppra Iv/NS) 107.5 ml @ 430 mls/hr Q12 IVPB ; Start 12/30/16 at 12:30 IRIS PATEL MD Dec 30, 2016 11:44
[2016-12-30] MEDS: ARTIFICIAL TEARS 15 ML OPH BOTH EYES SCH ×3 (12:41→23:44)
[2016-12-30] MEDS: LEVETIRACETAM IV 750 MG in SOD CHLORIDE 0.9% 100 ML IVPB SCH ×2 (12:41→21:08)
[2016-12-30] MEDS: OCULAR LUBRICANT 3.5 GM OPH OINT BOTH EYES SCH ×3 (12:41→23:44)
--- NOTE | 2016-12-30 12:50 | RADRPT ---
Echocardiogram Report Patient Name: DANY GUEVARA Gender: Female Date: 1990 Study Date: 30-Dec-2016 Clicker Operator: Kali [facility] Location: 105 Ref. Physician: IMAN ALVAREZ Quality: Adequate Procedures: Transthoracic echocardiogram with complete 2D, M-Mode, and doppler examination. Indications: S/P VF Arrest. 2D/M Mode Doppler Measurement Value Normal Ranges Measurement Value Normal Ranges LVIDd 2D 4.5 3.5 - 5.6 cm AV Peak Phuc 1.0 m/sec LVIDs 2D 3.9 2.1 - 4.1 cm AV Peak PG 4.0 mmHg FS 2D 13.3 % LVOT Peak Phuc 0.8 m/sec LVPWd 2D 1.0 0.6 - 1.1 cm LVOT Peak PG 2.0 mmHg IVSd 2D 0.9 0.6 - 1.1 cm MV E Peak Phuc 1.0 m/sec IVS/LVPW 2D 0.9 MV Decel Time 85 msec AoR Diam 2D 2.5 2.0 - 3.7 cm LA/Ao 2D 1 0 - 1 EDV 2D 92.3 cm3 ESV 2D 60.2 cm3 LA Dimen 2D 3.0 2.3 - 4.0 cm Findings Left Ventricle: Normal left ventricular cavity size. Normal left ventricular wall thickness. Severe global left ventricular systolic dysfunction. Ejection fraction is visually estimated at 2025 %. Abnormal Diastolic Function. Right Ventricle: Normal right ventricular size. Normal right ventricular systolic function. Left Atrium: The left atrium is normal in size. Right Atrium: The right atrium is normal in size. Mitral Valve: Mild mitral leaflet calcification. Mild mitral annular calcification. Trace mitral regurgitation. Aortic Valve: Aortic cusps appear mildly calcified. Trace aortic valve regurgitation. Tricuspid Valve: Normal appearance of the tricuspid valve. Unable to obtain RVSP due to minimal presence of tricuspid regurgitation. There is trace tricuspid regurgitation. Pulmonic Valve: Pulmonic valve not well visualized. There is trace pulmonic regurgitation. Pericardium: Normal pericardium with no significant pericardial effusion. Aorta: Normal aortic root. IVC: Inferior vena cava without respiratory collapse, however, patient on ventilator. Conclusions 1.The left ventricle is normal in size with severely reduced systolic function. 2.Estimated left ventricular ejection fraction of 20-25%. Electronically Signed By: Alexys Joseph 30-Dec-2016 12:50:05 -0700 Patient Name: DANY GUEVARA Study Date: 30-Dec-[id number]
[2016-12-30 12:55] LABS: BARBITURATES Negative (NEGATIVE); BENZODIAZEPINES Negative (NEGATIVE); CANNABINOIDS Negative (NEGATIVE); COCAINE Negative (NEGATIVE); OPIATES Negative (NEGATIVE)
[2016-12-30] MEDS: MIDAZOLAM (DRIP) 50 mg/50 mL 50 ML IV SCH ×3 (13:11→22:58)
[2016-12-30 13:34] LABS: AADO2 Arterial 50.8 mmHg (7.0-24.0); Arterial Base Excess -11.9 mmol/L (-3.0-3); Arterial COHb 0.3 % (0.0-3.0); Arterial Fraction of Oxyhgb 98.6 % (93.0-99.0); Arterial HCO3 13.1 mmol/L (22.0-26.0); Arterial MetHb 0.2 % (0.0-1.5); Arterial Total Hemglobin 13.3 g/dl (12.0-18.0); MODE VENT - AC
[2016-12-30 14:43] LABS: ABNORMAL IP MESSAGE 1; BASOPHILS % 0.1 % (0.0-2.0); HEMOGLOBIN 12.3 g/dl (12.0-16.0); LYMPHOCYTES # 0.7 10^3/ul (0.8-2.9); MEAN CORPUSCULAR HEMOGLOBIN 28.2 pg (29.0-33.0); MEAN CORPUSCULAR HGB CONC 32.4 g/dl (32.0-37.0); MEAN CORPUSCULAR VOLUME 87.2 fl (82.0-101.0); MEAN PLATELET VOLUME 11.6 fl (7.4-10.4); MONOCYTES % 4.4 % (0.0-11.0); NEUTROPHIL # 20.1 10^3/ul (1.6-7.5); PLATELET COUNT 227 10^3/UL (140-415); RED BLOOD COUNT 4.36 10^6/ul (4.20-5.40); RED CELL DISTRIBUTION WIDTH 12.2 % (11.5-14.5); WHITE BLOOD COUNT 21.9 10^3/ul (4.8-10.8)
[2016-12-30 14:47] LABS: POSITIVE DIFF @See below
[2016-12-30 15:08] LABS: ALBUMIN/GLOBULIN RATIO 1.19
[2016-12-30 15:34] LABS: ALBUMIN 3.1 g/dl (3.3-4.9); CALCIUM 7.9 mg/dl (8.4-10.2); CREATININE 0.69 mg/dl (0.44-1.00); TOTAL PROTEIN 5.7 g/dl (6.1-8.1)
[2016-12-30 15:55] LABS: BILIRUBIN,INDIRECT 0.1 mg/dl (0-1.1); BILIRUBIN,TOTAL 0.1 mg/dl (0.2-1.3)
[2016-12-30] MEDS ORDERED: VANCOMYCIN IV PER PHARMACY XX SCH (17:00)
[2016-12-30] MEDS ORDERED: MAGNESIUM SULFATE 2 GM/50 ML 50 ML IVPB ONE (17:30)
[2016-12-30] MEDS ORDERED: VANCOMYCIN 1.25 GM in SOD CHLORIDE 0.9% 250 ML IVPB SCH (18:00)
[2016-12-30] MEDS ORDERED: DEXTROSE 5%-0.9% NACL 1,000 ML IV SCH (20:30)
[2016-12-30] MEDS ORDERED: LEVETIRACETAM 500 MG (PMX) 100 ML IVPB SCH (21:00)
[2016-12-30] MEDS: CEFEPIME 1GM/50 ML (PMX) 50 ML IVPB SCH (21:09)
[2016-12-30 21:26] LABS: Arterial COHb 0.3 % (0.0-3.0); Arterial Fraction of Oxyhgb 98.5 % (93.0-99.0); Arterial MetHb 0.2 % (0.0-1.5); Arterial Total Hemglobin 14.4 g/dl (12.0-18.0); MODE VENT - AC
[2016-12-30] MEDS ORDERED: SOD CHLORIDE 0.9% 1,000 ML IV ONE (21:30)
[2016-12-30 21:36] LABS: AADO2 Arterial 29.8 mmHg (7.0-24.0)
[2016-12-31] VITALS (76 sets, daily range): BP systolic 91–123; BP diastolic 64–95; PULSE 75–115; RESP 16–23
[2016-12-31 00:04] LABS: CALCIUM 6.6 mg/dl (8.4-10.2); CREATININE 0.44 mg/dl (0.44-1.00); POTASSIUM 5.6 mmol/L (3.5-5.1)
--- NOTE | 2016-12-31 00:15 | RADRPT ---
Vent Rate: 86 bpm RR Interval: 0 msec GA Interval: 198 msec QRS Duration: 98 msec QT Interval: 374 msec QTC Interval: 447 msec P-R-T [place]: 70 - 60 - 81 degrees Normal sinus rhythm Normal ECG Electronically Signed By: Isidro Perez [id number]
[2016-12-31 00:37] LABS: MAGNESIUM 4.2 mg/dl (1.7-2.5)
[2016-12-31] MEDS: NORepinephrine 8MG/250 ML (PMX 250 ML IV SCH (00:50)
[2016-12-31] MEDS ORDERED: CALCIUM GLUCONATE 10% 1 GM in SOD CHLORIDE 0.9% 100 ML IVPB ONE (01:00)
[2016-12-31] MEDS: ACCU-CHEK XX SCH ×6 (01:30→05:59)
[2016-12-31] MEDS: MIDAZOLAM (DRIP) 50 mg/50 mL 50 ML IV SCH ×3 (03:10→18:28)
[2016-12-31] MEDS: VANCOMYCIN 750 MG in SOD CHLORIDE 0.9% 150 ML IVPB SCH ×3 (03:11→19:58)
[2016-12-31 04:24] LABS: WHITE BLOOD COUNT 25.5 10^3/ul (4.8-10.8)
[2016-12-31 04:25] LABS: ABNORMAL IP MESSAGE 1; BASOPHILS % 0.1 % (0.0-2.0); HEMOGLOBIN 12.7 g/dl (12.0-16.0); LYMPHOCYTES # 0.9 10^3/ul (0.8-2.9); LYMPHOCYTES % 3.7 % (15.0-51.0); MEAN CORPUSCULAR HEMOGLOBIN 28.7 pg (29.0-33.0); MEAN CORPUSCULAR HGB CONC 33.4 g/dl (32.0-37.0); MEAN CORPUSCULAR VOLUME 85.8 fl (82.0-101.0); MONOCYTE # 1.2 10^3/ul (0.3-0.9); MONOCYTES % 4.8 % (0.0-11.0); NEUTROPHIL # 23.1 10^3/ul (1.6-7.5); NEUTROPHILS % 90.8 % (39.0-77.0); PLATELET COUNT 222 10^3/UL (140-415); POSITIVE DIFF @See below; RED BLOOD COUNT 4.43 10^6/ul (4.20-5.40); RED CELL DISTRIBUTION WIDTH 12.1 % (11.5-14.5)
[2016-12-31] MEDS ORDERED: DESMOPRESSIN 4 MCG INJ IV ONE (04:30)
[2016-12-31] MEDS ORDERED: SODIUM PHOSPHATE 20 MEQ in SOD CHLORIDE 0.9% 250 ML IVPB ONE (04:30)
[2016-12-31] MEDS ORDERED: SOD CHLORIDE 0.9% 1,000 ML IV ONE (04:30)
[2016-12-31 04:46] LABS: CALCIUM 7.1 mg/dl (8.4-10.2); CREATININE 0.44 mg/dl (0.44-1.00); MAGNESIUM 1.9 mg/dl (1.7-2.5); POTASSIUM 4.3 mmol/L (3.5-5.1)
[2016-12-31] MEDS: ARTIFICIAL TEARS 15 ML OPH BOTH EYES SCH ×4 (05:43→23:53)
[2016-12-31] MEDS: VALPROATE INJ 500 MG in DEXTROSE 5% 50 ML IVPB SCH ×3 (05:43→22:21)
[2016-12-31] MEDS: OCULAR LUBRICANT 3.5 GM OPH OINT BOTH EYES SCH ×4 (05:43→23:53)
[2016-12-31] MEDS: ACETAMINOPHEN 650 MG SUPP PR SCH ×2 (06:02→13:00)
[2016-12-31] MEDS: ACETAMINOPHEN 650MG/20.3ML CUP PO SCH ×3 (06:02→19:00)
[2016-12-31 06:54] LABS: Arterial Base Excess -9.9 mmol/L (-3.0-3); Arterial COHb 0.3 % (0.0-3.0); Arterial Fraction of Oxyhgb 98.5 % (93.0-99.0); Arterial HCO3 15.2 mmol/L (22.0-26.0); Arterial MetHb 0.2 % (0.0-1.5); Arterial Total Hemglobin 13.6 g/dl (12.0-18.0); MODE VENT - AC
[2016-12-31] MEDS: CEFEPIME 1GM/50 ML (PMX) 50 ML IVPB SCH ×2 (08:19→20:57)
[2016-12-31] MEDS: LEVETIRACETAM IV 750 MG in SOD CHLORIDE 0.9% 100 ML IVPB SCH ×2 (08:19→20:58)
[2016-12-31] MEDS: FAMOTIDINE 20 MG INJ IV SCH (08:19)
--- NOTE | 2016-12-31 08:19 | RADRPT ---
PROCEDURE: XR Chest. CLINICAL INDICATION: Intubated TECHNIQUE: Single frontal view of the chest. COMPARISON: 12/30/2016 and additional priors FINDINGS: Endotracheal tube tip well positioned over the mid tracheal shadow. Enteric tube tip over the upper left abdomen . Left subclavian catheter tip over the cavoatrial junction. Stable cardiomediastinal silhouette. Hazy right lung interstitial opacities. Left lung is clear. No significant pleural effus ion. No evidence of pneumothorax. IMPRESSION: 1. Appropriate position of central line and tubes. 2. Hazy right lung interstitial opacities may represent asymmetric pulmonary edema or developing inf ection. RPTAT:AAJJ Physician Elizabeth Date Time Electronically viewed and signed by Physician Elizabeth on 12/31/2016 08:19 /
[2016-12-31] MEDS ORDERED: MAGNESIUM SULFATE 2 GM/50 ML 50 ML IVPB ONE ×2 (11:00→18:00)
--- NOTE | 2016-12-31 11:48 | CONS ---
Date/Time of Note Date/Time of Note DATE: 12/31/16 TIME: 11:42 Assessment/Plan Assessment/Plan Additional Assessment/Plan Ventilator setting; AC of 16, tidal volume 500, PEEP of 5, 30% FiO2. Patient is currently on Versed 7 mg/h, fentanyl 25 mics per hour. Vecuronium via protocol. Has required Levophed off and on. Assessment and recommendations; 1. Patient admitted with cardiac arrest likely arrhythmogenic in etiology. Patient was quite hyperkalemic on admission. 2. Negative cardiac cath. 3. Increasing leukocytosis possibly a stress response. Patient however currently on broad-spectrum antibiotic coverage. 4. 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 Patient received 1 dose of desmopressin. 5. Myoclonic jerking and seizure activity which is currently well controlled on current antiseizure medications. Next 6. Intermittent hypotension. Possibly from polyuria. Continue current supportive care. Once the patient is off hypothermia protocol she will be it assessed for adequacy of mental status. Obtain follow-up chest x -ray. Electrolytes have been replaced. I did have a very detailed discussion the patient's sister debate and answered all her questions. Prognosis is very guarded at this point and will depend entirely upon adequacy of mental recovery. 35 minutes of critical care time was spent evaluating the patient. Consultation Date/Type/Reason Admit Date/Time Dec 30, 2016 at 06:20 Initial Consult Date 12/30/16 Type of Consultation: Pulmonary/critical care Referring Provider: SANDOVAL AMBROSE 24 HR Interval Summary Free Text/Dictation Patient condition remains extremely critical. Still on hypothermia protocol which will be stopped in the next hour or so. Has remained hemodynamically stable. No further overt seizure activity noted. No further myoclonic jerking observed either. General exam; young woman, orally intubated, sedated and paralyzed. Exam/Review of Systems Vital Signs Vitals Vital Signs Date Time Temp Pulse Resp B/P Pulse Ox O2 Delivery O2 Flow Rate FiO2 12/31/16 11:30 92.7 12/31/16 10:00 101 17 117/83 100 Mechanical Ventilator 12/31/16 08:00 30 Intake and Output 12/30/16 12/30/16 12/31/16 15:00 23:00 07:00 Intake Total 2148.15 ml 1928.87 ml 2614.045 ml Output Total 834 ml 1685 ml 1939 ml Balance 1314.15 ml 243.87 ml 675.045 ml Exam HEENT exam; supple neck, no JVD. No lymphadenopathy. Midline trachea. No thyromegaly. Orally intubated. Patient has fair dentition. Pupils are small and very sluggishly reactive. Chest exam; clear to auscultation. S1-S2 audible, no murmurs. Regular rhythm. Abdomen exam; soft, no organomegaly. Nondistended. Bowel sounds are very sluggish. Extremity exam; no peripheral edema. Pulses 1+ bilaterally. [employer] exam; patient is sedated and paralyzed. Results Result Diagram: 12/31/16 0400 12/31/16 0400 Results 24 hrs Laboratory Tests Test 12/30/16 12:54 12/30/16 13:17 12/30/16 13:50 12/30/16 16:20 Blood Gas Specimen Source Blood arterial Arterial Blood Date Drawn 12/30/2016 12:56:00 PM Arterial Blood pH (Temp corrected) 7.362 Arterial Blood pCO2 (Temp correct) 22.3 L Arterial Blood pO2 (Temp corrected) 177.0 H Arterial Blood HCO3 13.1 L Arterial Blood Base Excess -11.9 L Arterial Blood Oxygen Saturation 99.1 H Virgilio Test N/A Arterial Blood Gas Puncture Site LB Arterial Blood Carboxyhemoglobin 0.3 Arterial Blood Methemoglobin 0.2 Blood Gas A-a O2 Differential 50.8 H Oxyhemoglobin Percent 98.6 Total Hemoglobin 13.3 Blood Gas Temperature 31.8 Blood Gas Respiration Rate 16.0 Blood Gas Actual Respiration Rate 16 Blood Gas Modality VENT - AC FiO2 35.0 Blood Gas Tidal Volume 500.0 Blood Gas Low PEEP Setting 5.0 Blood Gas Critical Value Read Back JAIDEN DAVIDSON Blood Gas Notified Whom TM Blood Gas Notified Time 12/30/2016 1:26:00 PM Bedside Glucose 114 92 White Blood Count 21.9 #H Red Blood Count 4.36 Hemoglobin 12.3 Hematocrit 38.0 Mean Corpuscular Volume 87.2 Mean Corpuscular Hemoglobin 28.2 L Mean Corpuscular Hemoglobin Concent 32.4 Red Cell Distribution Width 12.2 Platelet Count 227 # Mean Platelet Volume 11.6 H Neutrophils % 92.0 H Lymphocytes % 3.0 L Monocytes % 4.4 Eosinophils % 0.0 Basophils % 0.1 Nucleated Red Blood Cells % 0.0 Neutrophils # 20.1 H Lymphocytes # 0.7 L Monocytes # 1.0 H Eosinophils # 0.0 Basophils # 0.0 Nucleated Red Blood Cells # 0.0 Sodium Level 140 Potassium Level 4.0 Chloride Level 115 H Carbon Dioxide Level 20 L Anion Gap 9 # Blood Urea Nitrogen 13 Creatinine 0.69 Glucose Level 95 # Hemoglobin A1c 5.0 Calcium Level 7.9 L Magnesium Level 1.7 Total Bilirubin 0.1 L Direct Bilirubin 0.00 Indirect Bilirubin 0.1 Aspartate Amino Transf (AST/SGOT) 254 H Alanine Aminotransferase (ALT/SGPT) 257 H Alkaline Phosphatase 35 L Total Protein 5.7 #L Albumin 3.1 L Globulin 2.60 Albumin/Globulin Ratio 1.19 Test 12/30/16 20:12 12/30/16 21:00 12/30/16 21:15 12/30/16 23:30 Bedside Glucose 85 89 Blood Gas Specimen Source Blood arterial Arterial Blood Date Drawn 12/30/2016 9:14:00 PM Arterial Blood pH (Temp corrected) 7.291 *L Arterial Blood pCO2 (Temp correct) 21.9 L Arterial Blood pO2 (Temp corrected) 161.8 H Arterial Blood HCO3 11.0 L Arterial Blood Base Excess -15.0 L Arterial Blood Oxygen Saturation 99.0 H Virgilio Test N/A Arterial Blood Gas Puncture Site LB Arterial Blood Carboxyhemoglobin 0.3 Arterial Blood Methemoglobin 0.2 Blood Gas A-a O2 Differential 29.8 H Oxyhemoglobin Percent 98.5 Total Hemoglobin 14.4 Blood Gas Temperature 32.0 Blood Gas Respiration Rate 16.0 Blood Gas Actual Respiration Rate 16 Blood Gas Modality VENT - AC FiO2 30.0 Blood Gas Tidal Volume 500.0 Blood Gas Low PEEP Setting 5.0 Blood Gas Inspiratory Pressure 18.0 Blood Gas Critical Value Read Back Susan VALLADARES RN Blood Gas Notified Whom BL Blood Gas Notified Time 12/30/2016 9:25:00 PM Sodium Level 132 L Potassium Level 5.6 H Chloride Level 110 Carbon Dioxide Level 17 L Anion Gap 11 Blood Urea Nitrogen 7 Creatinine 0.44 Glucose Level 116 Calcium Level 6.6 L Phosphorus Level 2.0 #L Magnesium Level 4.2 #H Test 12/30/16 23:40 12/31/16 04:00 12/31/16 04:24 12/31/16 06:00 Bedside Glucose 86 80 White Blood Count 25.5 H Red Blood Count 4.43 Hemoglobin 12.7 Hematocrit 38.0 Mean Corpuscular Volume 85.8 Mean Corpuscular Hemoglobin 28.7 L Mean Corpuscular Hemoglobin Concent 33.4 Red Cell Distribution Width 12.1 Platelet Count 222 Mean Platelet Volume 11.0 H Neutrophils % 90.8 H Lymphocytes % 3.7 L Monocytes % 4.8 Eosinophils % 0.0 Basophils % 0.1 Nucleated Red Blood Cells % 0.0 Neutrophils # 23.1 H Lymphocytes # 0.9 Monocytes # 1.2 H Eosinophils # 0.0 Basophils # 0.0 Nucleated Red Blood Cells # 0.0 Sodium Level 136 Potassium Level 4.3 Chloride Level 111 H Carbon Dioxide Level 17 L Anion Gap 12 Blood Urea Nitrogen 6 L Creatinine 0.44 Glucose Level 107 Calcium Level 7.1 L Magnesium Level 1.9 # Blood Gas Specimen Source Blood arterial Arterial Blood Date Drawn 12/31/2016 6:40:12 AM Arterial Blood pH (Temp corrected) 7.360 Arterial Blood pCO2 (Temp correct) 26.2 L Arterial Blood pO2 (Temp corrected) 148.9 H Arterial Blood HCO3 15.2 L Arterial Blood Base Excess -9.9 L Arterial Blood Oxygen Saturation 99.0 H Virgilio Test N/A Arterial Blood Gas Puncture Site LB Arterial Blood Carboxyhemoglobin 0.3 Arterial Blood Methemoglobin 0.2 Blood Gas A-a O2 Differential 37.0 H Oxyhemoglobin Percent 98.5 Total Hemoglobin 13.6 Blood Gas Temperature 32.9 Blood Gas Respiration Rate 16.0 Blood Gas Actual Respiration Rate 17 Blood Gas Modality VENT - AC FiO2 30.0 Blood Gas Tidal Volume 500.0 Blood Gas Low PEEP Setting 5.0 Blood Gas Notified Whom TM Blood Gas Notified Time 12/31/2016 6:54:32 AM Medications Medications Current Medications Morphine Sulfate (morphine) 2 mg Q2H PRN IV FOR NON CARDIAC PAIN (4-10); Start 12/30/16 at 06:30 Ondansetron HCl (Zofran Inj) 4 mg Q6H PRN IV NAUSEA AND/OR VOMITING; Start at 07:00 Acetaminophen (Tylenol Supp) 650 mg Q4H PRN [place] PAIN LEVEL 1-3 OR FEVER; Start 12/30/16 at 07:00 Lorazepam (Ativan) 1 mg Q2H PRN IV ANXIETY Last administered on 12/30/16 09:41 ; Admin Dose 1 MG; Start 12/30/16 at 07:00 Famotidine (Pepcid Iv) 20 mg DAILY IV Last administered on 12/31/16 08:19; Admin Dose 20 MG; Start 12/31/16 at 09:00 Acetaminophen (Tylenol Supp) 650 mg Q4H PRN [place] TEMP > 37C; Start 12/30/16 at 07 :00 Acetaminophen (Tylenol Liquid) 650 mg Q4H PRN PO TEMP > 37C; Start 12/30/16 at 07:00 Acetaminophen (Tylenol Supp) 500 mg Q6H [place] ; Start 12/31/16 at 07:00 Acetaminophen (Tylenol Liquid) 500 mg Q6H PO ; Start 12/31/16 at 07:00 Meperidine HCl (Demerol) 12.5 mg Q4H PRN IV POST OPERATIVE SHIVERING; Start at 07:00 Meperidine HCl (Demerol) 25 mg Q4H PRN IV POST OPERATIVE SHIVERING; Start 12/30 at 07:00 Eye Lubricant (Akwa Oint) 1 applic Q6 BOTH EYES Last administered on 12/31/16 11:13; Admin Dose 1 APPLIC; Start 12/30/16 at 12:00 Eye Lubricant (Artificial Tears Oph) 2 drop Q6 BOTH EYES Last administered on 11:13; Admin Dose 2 DROP; Start 12/30/16 at 12:00 Lorazepam 2 mg 2 mg Q6H PRN IV seizure Last administered on 12/30/16 09:41; Admin Dose 2 MG; Start 12/30/16 at 07:30 Fentanyl 100 ml @ 2.5 mls/hr TITRATE IV Last administered on 12/30/16 23:01; Admin Dose 2.5 MLS/HR; Start 12/30/16 at 07:30 Midazolam HCl 50 ml @ 1 mls/hr TITRATE IV Last administered on 12/31/16 11:07 ; Admin Dose 7 MLS/HR; Start 12/30/16 at 08:00 Vecuronium [place]/Dextrose (Norcuron/D5W) 100 ml @ 3.13 mls/hr TITRATE IV Last administered on 12/30/16 09:45; Admin Dose 3.13 MLS/HR; Start 12/30/16 at 09:00 Miscellaneous Information 1 ea NOTE XX ; Start 12/30/16 at 09:00 Glucose (Glutose) 15 gm Q15M PRN PO DECREASED GLUCOSE; Start 12/30/16 at 09:00 Glucose (Glutose) 22.5 gm Q15M PRN PO DECREASED GLUCOSE; Start 12/30/16 at 09: 00 Dextrose (D50w Syringe) 25 ml Q15M PRN IV DECREASED GLUCOSE; Start 12/30/16 at 09:00 Dextrose (D50w Syringe) 50 ml Q15M PRN IV DECREASED GLUCOSE; Start 12/30/16 at 09:00 Glucagon (Glucagen) 1 mg Q15M PRN IM DECREASED GLUCOSE; Start 12/30/16 at 09:00 Glucose 15 gm 15 gm Q15M PRN BUCCAL DECREASED GLUCOSE; Start 12/30/16 at 09:00 Valproate Sodium 500 mg/Dextrose 55 ml @ 55 mls/hr Q8 IVPB Last administered on 12/31/16 05:43; Admin Dose 55 MLS/HR; Start 12/30/16 at 10:30 Levetiracetam 750 mg/Sodium Chloride 107.5 ml @ 430 mls/hr Q12 IVPB Last administered on 12/31/16 08:19; Admin Dose 430 MLS/HR; Start 12/30/16 at 12:30 Cefepime HCl 50 ml @ 100 mls/hr Q12 IVPB Last administered on 12/31/16 08:19 ; Admin Dose 100 MLS/HR; Start 12/30/16 at 21:00 Vancomycin HCl 750 mg/Sodium Chloride 150 ml @ 75 mls/hr Q8H IVPB Last administered on 12/31/16 11:13; Admin Dose 75 MLS/HR; Start 12/31/16 at 03:00 Dextrose/Sodium Chloride 1,000 ml @ 60 mls/hr [id number] IV Last administered on 12/30/16 21:09; Admin Dose 60 MLS/HR; Start 12/30/16 at 20:30 Norepinephrine 250 ml @ 1.875 mls/ hr TITRATE IV Last administered on 00:50; Admin Dose 3.75 MLS/HR; Start 12/31/16 at 00:00; Stop 01/02/17 at 23 :59 Calcium Gluconate 1 gm/Sodium Chloride 110 ml @ 110 mls/hr ONCE IVPB ; Start at 12:30; Stop 12/31/16 at 13:29 Magnesium Sulfate (Magnesium Sulfate 2 Gm/50 ml) 50 ml @ 25 mls/hr ONCE ONCE IVPB Last administered on 12/31/16t 11:10; Admin Dose 25 MLS/HR; Start at 11:00; Stop 12/31/16 at 12:59 PRABHAKAR BRIGGS Dec 31, 2016 11:48
--- NOTE | 2016-12-31 12:07 | CONS ---
Date/Time of Note Date/Time of Note DATE: 12/31/16 TIME: 12:06 Consult Date/Type/Reason Admit Date/Time Dec 30, 2016 at 06:20 Initial Consult Date 12/30/16 Type of Consultation: Neurology Reason for Consultation cardiac arrest seizures Ordering Provider: SANDOVAL AMBROSE Subjective rewarming protocol ongoing no further seizures remains heavily sedated Objective Vital Signs Date Time Temp Pulse Resp B/P Pulse Ox O2 Delivery O2 Flow Rate FiO2 12/31/16 11:45 92.0 12/31/16 11:45 88 16 112/81 100 Mechanical Ventilator 12/31/16 08:00 30 Intake and Output 12/30/16 12/30/16 12/31/16 15:00 23:00 07:00 Intake Total 2148.15 ml 1928.87 ml 2614.045 ml Output Total 834 ml 1685 ml 1939 ml Balance 1314.15 ml 243.87 ml 675.045 ml Exam intubated sedated limited exam no seizures noted CN: pupils 1 mm non reactive heavily sedated absent corneals absent gag no purposeful movement depressed reflexes mute toes Results/Medications Result Diagram: 12/31/16 0400 12/31/16 0400 Results 24 hrs Laboratory Tests Test 12/30/16 12:54 12/30/16 13:17 12/30/16 13:50 12/30/16 16:20 Blood Gas Specimen Source Blood arterial Arterial Blood Date Drawn 12/30/2016 12:56:00 PM Arterial Blood pH (Temp corrected) 7.362 Arterial Blood pCO2 (Temp correct) 22.3 L Arterial Blood pO2 (Temp corrected) 177.0 H Arterial Blood HCO3 13.1 L Arterial Blood Base Excess -11.9 L Arterial Blood Oxygen Saturation 99.1 H Virgilio Test N/A Arterial Blood Gas Puncture Site LB Arterial Blood Carboxyhemoglobin 0.3 Arterial Blood Methemoglobin 0.2 Blood Gas A-a O2 Differential 50.8 H Oxyhemoglobin Percent 98.6 Total Hemoglobin 13.3 Blood Gas Temperature 31.8 Blood Gas Respiration Rate 16.0 Blood Gas Actual Respiration Rate 16 Blood Gas Modality VENT - AC FiO2 35.0 Blood Gas Tidal Volume 500.0 Blood Gas Low PEEP Setting 5.0 Blood Gas Critical Value Read Back JAIDEN RN Blood Gas Notified Whom TM Blood Gas Notified Time 12/30/2016 1:26:00 PM Bedside Glucose 114 92 White Blood Count 21.9 #H Red Blood Count 4.36 Hemoglobin 12.3 Hematocrit 38.0 Mean Corpuscular Volume 87.2 Mean Corpuscular Hemoglobin 28.2 L Mean Corpuscular Hemoglobin Concent 32.4 Red Cell Distribution Width 12.2 Platelet Count 227 # Mean Platelet Volume 11.6 H Neutrophils % 92.0 H Lymphocytes % 3.0 L Monocytes % 4.4 Eosinophils % 0.0 Basophils % 0.1 Nucleated Red Blood Cells % 0.0 Neutrophils # 20.1 H Lymphocytes # 0.7 L Monocytes # 1.0 H Eosinophils # 0.0 Basophils # 0.0 Nucleated Red Blood Cells # 0.0 Sodium Level 140 Potassium Level 4.0 Chloride Level 115 H Carbon Dioxide Level 20 L Anion Gap 9 # Blood Urea Nitrogen 13 Creatinine 0.69 Glucose Level 95 # Hemoglobin A1c 5.0 Calcium Level 7.9 L Magnesium Level 1.7 Total Bilirubin 0.1 L Direct Bilirubin 0.00 Indirect Bilirubin 0.1 Aspartate Amino Transf (AST/SGOT) 254 H Alanine Aminotransferase (ALT/SGPT) 257 H Alkaline Phosphatase 35 L Total Protein 5.7 #L Albumin 3.1 L Globulin 2.60 Albumin/Globulin Ratio 1.19 Test 12/30/16 20:12 12/30/16 21:00 12/30/16 21:15 12/30/16 23:30 Bedside Glucose 85 89 Blood Gas Specimen Source Blood arterial Arterial Blood Date Drawn 12/30/2016 9:14:00 PM Arterial Blood pH (Temp corrected) 7.291 *L Arterial Blood pCO2 (Temp correct) 21.9 L Arterial Blood pO2 (Temp corrected) 161.8 H Arterial Blood HCO3 11.0 L Arterial Blood Base Excess -15.0 L Arterial Blood Oxygen Saturation 99.0 H Virgilio Test N/A Arterial Blood Gas Puncture Site LB Arterial Blood Carboxyhemoglobin 0.3 Arterial Blood Methemoglobin 0.2 Blood Gas A-a O2 Differential 29.8 H Oxyhemoglobin Percent 98.5 Total Hemoglobin 14.4 Blood Gas Temperature 32.0 Blood Gas Respiration Rate 16.0 Blood Gas Actual Respiration Rate 16 Blood Gas Modality VENT - AC FiO2 30.0 Blood Gas Tidal Volume 500.0 Blood Gas Low PEEP Setting 5.0 Blood Gas Inspiratory Pressure 18.0 Blood Gas Critical Value Read Back Susan VALLADARES RN Blood Gas Notified Whom BL Blood Gas Notified Time 12/30/2016 9:25:00 PM Sodium Level 132 L Potassium Level 5.6 H Chloride Level 110 Carbon Dioxide Level 17 L Anion Gap 11 Blood Urea Nitrogen 7 Creatinine 0.44 Glucose Level 116 Calcium Level 6.6 L Phosphorus Level 2.0 #L Magnesium Level 4.2 #H Test 12/30/16 23:40 12/31/16 04:00 12/31/16 04:24 12/31/16 06:00 Bedside Glucose 86 80 White Blood Count 25.5 H Red Blood Count 4.43 Hemoglobin 12.7 Hematocrit 38.0 Mean Corpuscular Volume 85.8 Mean Corpuscular Hemoglobin 28.7 L Mean Corpuscular Hemoglobin Concent 33.4 Red Cell Distribution Width 12.1 Platelet Count 222 Mean Platelet Volume 11.0 H Neutrophils % 90.8 H Lymphocytes % 3.7 L Monocytes % 4.8 Eosinophils % 0.0 Basophils % 0.1 Nucleated Red Blood Cells % 0.0 Neutrophils # 23.1 H Lymphocytes # 0.9 Monocytes # 1.2 H Eosinophils # 0.0 Basophils # 0.0 Nucleated Red Blood Cells # 0.0 Sodium Level 136 Potassium Level 4.3 Chloride Level 111 H Carbon Dioxide Level 17 L Anion Gap 12 Blood Urea Nitrogen 6 L Creatinine 0.44 Glucose Level 107 Calcium Level 7.1 L Magnesium Level 1.9 # Blood Gas Specimen Source Blood arterial Arterial Blood Date Drawn 12/31/2016 6:40:12 AM Arterial Blood pH (Temp corrected) 7.360 Arterial Blood pCO2 (Temp correct) 26.2 L Arterial Blood pO2 (Temp corrected) 148.9 H Arterial Blood HCO3 15.2 L Arterial Blood Base Excess -9.9 L Arterial Blood Oxygen Saturation 99.0 H Virgilio Test N/A Arterial Blood Gas Puncture Site LB Arterial Blood Carboxyhemoglobin 0.3 Arterial Blood Methemoglobin 0.2 Blood Gas A-a O2 Differential 37.0 H Oxyhemoglobin Percent 98.5 Total Hemoglobin 13.6 Blood Gas Temperature 32.9 Blood Gas Respiration Rate 16.0 Blood Gas Actual Respiration Rate 17 Blood Gas Modality VENT - AC FiO2 30.0 Blood Gas Tidal Volume 500.0 Blood Gas Low PEEP Setting 5.0 Blood Gas Notified Whom TM Blood Gas Notified Time 12/31/2016 6:54:32 AM Medications Current Medications Morphine Sulfate (morphine) 2 mg Q2H PRN IV FOR NON CARDIAC PAIN (4-10); Start 12/30/16 at 06:30 Ondansetron HCl (Zofran Inj) 4 mg Q6H PRN IV NAUSEA AND/OR VOMITING; Start at 07:00 Acetaminophen (Tylenol Supp) 650 mg Q4H PRN [place] PAIN LEVEL 1-3 OR FEVER; Start 12/30/16 at 07:00 Lorazepam (Ativan) 1 mg Q2H PRN IV ANXIETY Last administered on 12/30/16 09:41 ; Admin Dose 1 MG; Start 12/30/16 at 07:00 Famotidine (Pepcid Iv) 20 mg DAILY IV Last administered on 12/31/16 08:19; Admin Dose 20 MG; Start 12/31/16 at 09:00 Acetaminophen (Tylenol Supp) 650 mg Q4H PRN [place] TEMP > 37C; Start 12/30/16 at 07 :00 Acetaminophen (Tylenol Liquid) 650 mg Q4H PRN PO TEMP > 37C; Start 12/30/16 at 07:00 Acetaminophen (Tylenol Supp) 500 mg Q6H [place] ; Start 12/31/16 at 07:00 Acetaminophen (Tylenol Liquid) 500 mg Q6H PO ; Start 12/31/16 at 07:00 Meperidine HCl (Demerol) 12.5 mg Q4H PRN IV POST OPERATIVE SHIVERING; Start at 07:00 Meperidine HCl (Demerol) 25 mg Q4H PRN IV POST OPERATIVE SHIVERING; Start 12/30 at 07:00 Eye Lubricant (Akwa Oint) 1 applic Q6 BOTH EYES Last administered on 12/31/16 11:13; Admin Dose 1 APPLIC; Start 12/30/16 at 12:00 Eye Lubricant (Artificial Tears Oph) 2 drop Q6 BOTH EYES Last administered on 11:13; Admin Dose 2 DROP; Start 12/30/16 at 12:00 Lorazepam 2 mg 2 mg Q6H PRN IV seizure Last administered on 12/30/16 09:41; Admin Dose 2 MG; Start 12/30/16 at 07:30 Fentanyl 100 ml @ 2.5 mls/hr TITRATE IV Last administered on 12/30/16 23:01; Admin Dose 2.5 MLS/HR; Start 12/30/16 at 07:30 Midazolam HCl 50 ml @ 1 mls/hr TITRATE IV Last administered on 12/31/16 11:07 ; Admin Dose 7 MLS/HR; Start 12/30/16 at 08:00 Vecuronium [place]/Dextrose (Norcuron/D5W) 100 ml @ 3.13 mls/hr TITRATE IV Last administered on 12/30/16 09:45; Admin Dose 3.13 MLS/HR; Start 12/30/16 at 09:00 Miscellaneous Information 1 ea NOTE XX ; Start 12/30/16 at 09:00 Glucose (Glutose) 15 gm Q15M PRN PO DECREASED GLUCOSE; Start 12/30/16 at 09:00 Glucose (Glutose) 22.5 gm Q15M PRN PO DECREASED GLUCOSE; Start 12/30/16 at 09: 00 Dextrose (D50w Syringe) 25 ml Q15M PRN IV DECREASED GLUCOSE; Start 12/30/16 at 09:00 Dextrose (D50w Syringe) 50 ml Q15M PRN IV DECREASED GLUCOSE; Start 12/30/16 at 09:00 Glucagon (Glucagen) 1 mg Q15M PRN IM DECREASED GLUCOSE; Start 12/30/16 at 09:00 Glucose 15 gm 15 gm Q15M PRN BUCCAL DECREASED GLUCOSE; Start 12/30/16 at 09:00 Valproate Sodium 500 mg/Dextrose 55 ml @ 55 mls/hr Q8 IVPB Last administered on 12/31/16 05:43; Admin Dose 55 MLS/HR; Start 12/30/16 at 10:30 Levetiracetam 750 mg/Sodium Chloride 107.5 ml @ 430 mls/hr Q12 IVPB Last administered on 12/31/16 08:19; Admin Dose 430 MLS/HR; Start 12/30/16 at 12:30 Cefepime HCl 50 ml @ 100 mls/hr Q12 IVPB Last administered on 12/31/16 08:19 ; Admin Dose 100 MLS/HR; Start 12/30/16 at 21:00 Vancomycin HCl 750 mg/Sodium Chloride 150 ml @ 75 mls/hr Q8H IVPB Last administered on 12/31/16 11:13; Admin Dose 75 MLS/HR; Start 12/31/16 at 03:00 Dextrose/Sodium Chloride 1,000 ml @ 60 mls/hr [id number] IV Last administered on 12/30/16 21:09; Admin Dose 60 MLS/HR; Start 12/30/16 at 20:30 Norepinephrine 250 ml @ 1.875 mls/ hr TITRATE IV Last administered on 00:50; Admin Dose 3.75 MLS/HR; Start 12/31/16 at 00:00; Stop 01/02/17 at 23 :59 Calcium Gluconate 1 gm/Sodium Chloride 110 ml @ 110 mls/hr ONCE IVPB ; Start at 12:30; Stop 12/31/16 at 13:29 Magnesium Sulfate (Magnesium Sulfate 2 Gm/50 ml) 50 ml @ 25 mls/hr ONCE ONCE IVPB Last administered on 12/31/16 11:10; Admin Dose 25 MLS/HR; Start at 11:00; Stop 12/31/16 at 12:59 Assessment/Plan Chief Complaint/Hosp Course 26 yo female w recent unintentional weight loss, hypokalemia (K: 2.7) admitted cardiac arrest with post arrest cardiomyopathy currently being treated with hypothermia protocol on VPA, Keppra and Versed drip for seizures. -EEG after rewarming completed tomorrow am -MRI Brain w/o contrast when stable may plan for tomorrow -continue current AED dosing -check VPA levels -malignancy work up when more stable -will continue to follow Problems: IRIS PATEL MD Dec 31, 2016 12:07
[2016-12-31] MEDS ORDERED: CALCIUM GLUCONATE 10% 1 GM in SOD CHLORIDE 0.9% 100 ML IVPB SCH (12:30)
[2016-12-31 13:18] LABS: ADD UMIC NO; UR ASCORBIC ACID NEGATIVE (NEGATIVE); UR BILIRUBIN (Dip) NEGATIVE (NEGATIVE); UR BLOOD (Dip) NEGATIVE (NEGATIVE); UR CLARITY CLEAR (CLEAR); UR COLOR COLORLESS (YELLOW); UR GLUCOSE (Dip) 1+ mg/dL (NEGATIVE); UR KETONES (Dip) TRACE mg/dL (NEGATIVE); UR LEUKOCYTE ESTERASE (Dip) NEGATIVE Leu/ul (NEGATIVE); UR NITRITE (Dip) NEGATIVE (NEGATIVE); UR TOTAL PROTEIN (Dip) NEGATIVE (NEGATIVE); UR UROBILINOGEN (Dip) NEGATIVE (NEGATIVE)
--- NOTE | 2016-12-31 13:24 | CONS ---
DATE OF ADMISSION: 12/30/2016 DATE OF CONSULTATION: 12/31/2016 REASON FOR CONSULTATION: Hyponatremia and electrolytes. REFERRING PHYSICIAN: Dr. Mae. HISTORY OF PRESENT ILLNESS: This is a 26-year-old female with a history of migraines, recent history of weight loss, who was brought into [facility] after being found unresponsive by her . Apparently, the patient's stated that after he went to the restroom early in the morning, he noted his to be unresponsive. The patient's called 911. CPR was initiated. Paramedics arrived. The patient, in the field, was given epinephrine with return of spontaneous circulation. In the emergency room, the patient had a CT scan of brain, which was negative, was intubated and admitted to intensive care unit and the patient in the emergency room also was seen by sales attendant building materials, . A cardiac cath was performed, which showed clean coronary arteries and ejection fraction of 20 percent, nonischemic. The patient was admitted to intensive care unit and placed on hypothermic protocol. In terms of the patient's renal history, the patient has had normal renal function during hospital course. The patient, however, noted to have polyuria with urinary output of greater than 400-500 cc. The patient was given 1 dose of DDAVP. Per patient's family, there has been no history of kidney disorders. PAST MEDICAL HISTORY: None. ALLERGIES: NONE. MEDICATIONS: Reviewed. FAMILY HISTORY: Noncontributory. SURGICAL HISTORY: None. REVIEW OF SYSTEMS: Unable to do adequate review of systems, the patient is intubated, obtunded. Pertinent positives obtained by reviewing medical records, speaking to hospital staff, as stated in HPI, otherwise negative. OBJECTIVE DATA: VITAL SIGNS: Blood pressure is 117/83, pulse 101, temperature 92.0. GENERAL: The patient is critically ill, intubated. HEENT: Head is normocephalic. Pupils are reactive. NECK: Supple. HEART: Tachycardic. LUNGS: Show diminished breath sounds at the base. ABDOMEN: Soft, nontender to palpation. EXTREMITIES: Negative for clubbing, cyanosis. No edema. DERMATOLOGIC: Clean. No rashes. MUSCULOSKELETAL: No joint effusion. NEUROLOGIC: The patient is sedated and obtunded. LABORATORY: Today shows sodium 136, potassium 4.3, chloride 111, BUN 6, creatinine 0.44. White count 25, hemoglobin is 12, crit is 38, and platelet count is 222. The patient's chest x-ray shows right hazy opacities, may reflect pulmonary edema, ongoing infection. The patient's urinalysis is bland. No active sediment. IMPRESSION AND PLAN: This is a 26-year-old female who presents with: 1. Polyuria. Etiology may be multifactorial secondary to copious amounts of intravenous fluids, volume expansion. The possibility of diabetes insipidus is always a consideration. At this point, would recommend to check urine sodium, urine osmolarity. Would monitor urinary output during the hospital stay. Would defer any further DDAVP. Would otherwise continue current treatment plan and we will monitor serial basic metabolic profiles. 2. Hyponatremia. Etiology is likely secondary to hypotonic fluids. Sodium levels have improved. Continue to monitor. 3. Hypokalemia, resolved. Continue to observe. 4. Cardiac arrest. Etiology is unknown. The patient is status post cardiac cath with clean coronaries with ejection fraction 20 percent. Unclear if this is due to post cardiac arrest. The patient is currently on hypothermic protocol. Continue to monitor. 5. Encephalopathy. Etiology secondary to code arrest. Follow up with Neurology. 6. Recent history of weight loss. Etiology is unclear. Continue to monitor. Thank you, Dr. Mae, for this interesting consult. It will be a pleasure to follow the patient with you throughout the hospital course. Dictated By: Ag Lewis DO /[email or web address]/martina /Document#: [id number]
[2016-12-31] MEDS ORDERED: SOD CHLORIDE 0.9% 500 ML IV ONE (13:30)
--- NOTE | 2016-12-31 13:56 | CONS ---
Date/Time of Note Date/Time of Note DATE: 12/31/16 TIME: 13:50 Assessment/Plan Assessment/Plan Chief Complaint/Hosp Course Assessment: Status post ventricular fibrillation cardiac arrest - suspect ventricular arrhythmia in setting of underlying cardiomyopathy, normal coronary arteries on angiography Nonischemic cardiomyopathy - LVEF 20-25% on echocardiogram, function may be acutely worse status post cardiac arrest Seizures - on anti-epileptic medications per neurology Recommendations: -no indication for aspirin or statin -as blood pressure can tolerate, will eventually need beta-jace and DANIEL inhibitor/ARB for systolic heart failure -ICD evaluation later in course of hospitalization depending on neurologic recovery Problems: Consultation Date/Type/Reason Admit Date/Time Dec 30, 2016 at 06:20 Initial Consult Date 12/30/16 Type of Consultation: Cardiology 24 HR Interval Summary Free Text/Dictation Rewarming from hypothermia protocol. Hemodynamically stable off pressors. Detailed Summary Additional Comments Unable to obtain review of systems, patient is intubated. Exam/Review of Systems Vital Signs Vitals Vital Signs Date Time Temp Pulse Resp B/P Pulse Ox O2 Delivery O2 Flow Rate FiO2 12/31/16 13:00 91.0 12/31/16 12:00 83 12/31/16 11:45 16 112/81 100 Mechanical Ventilator 12/31/16 11:30 30 Intake and Output 12/30/16 12/30/16 12/31/16 15:00 23:00 07:00 Intake Total 2148.15 ml 1928.87 ml 2614.045 ml Output Total 834 ml 1685 ml 1939 ml Balance 1314.15 ml 243.87 ml 675.045 ml Exam Constitutional: No alert, No distress Psych: No nl mood/affect Head: atraumatic, normocephalic Eyes: nl conjunctiva, nl lids ENMT: intubated Respiratory: clear to auscultation, No wheezing Cardiovascular: regular rate and rhythm, No murmurs/extra sounds Gastrointestinal: non-tender Musculoskeletal: nl extremities to inspection Extremities: No clubbing, No cyanosis, No edema Neurological: No nl mental status, No nl speech Results Result Diagram: 12/31/16 0400 12/31/16 0400 Results 24 hrs Laboratory Tests Test 12/30/16 16:20 12/30/16 20:12 12/30/16 21:00 12/30/16 21:15 Bedside Glucose 92 85 89 Blood Gas Specimen Source Blood arterial Arterial Blood Date Drawn 12/30/2016 9:14:00 PM Arterial Blood pH (Temp corrected) 7.291 *L Arterial Blood pCO2 (Temp correct) 21.9 L Arterial Blood pO2 (Temp corrected) 161.8 H Arterial Blood HCO3 11.0 L Arterial Blood Base Excess -15.0 L Arterial Blood Oxygen Saturation 99.0 H Virgilio Test N/A Arterial Blood Gas Puncture Site LB Arterial Blood Carboxyhemoglobin 0.3 Arterial Blood Methemoglobin 0.2 Blood Gas A-a O2 Differential 29.8 H Oxyhemoglobin Percent 98.5 Total Hemoglobin 14.4 Blood Gas Temperature 32.0 Blood Gas Respiration Rate 16.0 Blood Gas Actual Respiration Rate 16 Blood Gas Modality VENT - AC FiO2 30.0 Blood Gas Tidal Volume 500.0 Blood Gas Low PEEP Setting 5.0 Blood Gas Inspiratory Pressure 18.0 Blood Gas Critical Value Read Back Susan VALLADARES RN Blood Gas Notified Whom BL Blood Gas Notified Time 12/30/2016 9:25:00 PM Test 12/30/16 23:30 12/30/16 23:40 12/31/16 04:00 12/31/16 04:24 Sodium Level 132 L 136 Potassium Level 5.6 H 4.3 Chloride Level 110 111 H Carbon Dioxide Level 17 L 17 L Anion Gap 11 12 Blood Urea Nitrogen 7 6 L Creatinine 0.44 0.44 Glucose Level 116 107 Calcium Level 6.6 L 7.1 L Phosphorus Level 2.0 #L Magnesium Level 4.2 #H 1.9 # Bedside Glucose 86 80 White Blood Count 25.5 H Red Blood Count 4.43 Hemoglobin 12.7 Hematocrit 38.0 Mean Corpuscular Volume 85.8 Mean Corpuscular Hemoglobin 28.7 L Mean Corpuscular Hemoglobin Concent 33.4 Red Cell Distribution Width 12.1 Platelet Count 222 Mean Platelet Volume 11.0 H Neutrophils % 90.8 H Lymphocytes % 3.7 L Monocytes % 4.8 Eosinophils % 0.0 Basophils % 0.1 Nucleated Red Blood Cells % 0.0 Neutrophils # 23.1 H Lymphocytes # 0.9 Monocytes # 1.2 H Eosinophils # 0.0 Basophils # 0.0 Nucleated Red Blood Cells # 0.0 Test 12/31/16 05:00 12/31/16 06:00 Urine Color COLORLESS Urine Clarity CLEAR Urine pH 5.0 Urine Specific [place] 1.010 Urine Ketones TRACE A Urine Nitrite NEGATIVE Urine Bilirubin NEGATIVE Urine Urobilinogen NEGATIVE Urine Leukocyte Esterase NEGATIVE Urine Hemoglobin NEGATIVE Urine Osmolality 491 Urine Random Sodium > 198 H Urine Glucose 1+ H Urine Total Protein NEGATIVE Blood Gas Specimen Source Blood arterial Arterial Blood Date Drawn 12/31/2016 6:40:12 AM Arterial Blood pH (Temp corrected) 7.360 Arterial Blood pCO2 (Temp correct) 26.2 L Arterial Blood pO2 (Temp corrected) 148.9 H Arterial Blood HCO3 15.2 L Arterial Blood Base Excess -9.9 L Arterial Blood Oxygen Saturation 99.0 H Virgilio Test N/A Arterial Blood Gas Puncture Site LB Arterial Blood Carboxyhemoglobin 0.3 Arterial Blood Methemoglobin 0.2 Blood Gas A-a O2 Differential 37.0 H Oxyhemoglobin Percent 98.5 Total Hemoglobin 13.6 Blood Gas Temperature 32.9 Blood Gas Respiration Rate 16.0 Blood Gas Actual Respiration Rate 17 Blood Gas Modality VENT - AC FiO2 30.0 Blood Gas Tidal Volume 500.0 Blood Gas Low PEEP Setting 5.0 Blood Gas Notified Whom TM Blood Gas Notified Time 12/31/2016 6:54:32 AM Medications Medications Current Medications Morphine Sulfate (morphine) 2 mg Q2H PRN IV FOR NON CARDIAC PAIN (4-10); Start 12/30/16 at 06:30 Ondansetron HCl (Zofran Inj) 4 mg Q6H PRN IV NAUSEA AND/OR VOMITING; Start at 07:00 Acetaminophen (Tylenol Supp) 650 mg Q4H PRN [place] PAIN LEVEL 1-3 OR FEVER; Start 12/30/16 at 07:00 Lorazepam (Ativan) 1 mg Q2H PRN IV ANXIETY Last administered on 12/30/16 09:41 ; Admin Dose 1 MG; Start 12/30/16 at 07:00 Famotidine (Pepcid Iv) 20 mg DAILY IV Last administered on 12/31/16 08:19; Admin Dose 20 MG; Start 12/31/16 at 09:00 Acetaminophen (Tylenol Supp) 650 mg Q4H PRN [place] TEMP > 37C; Start 12/30/16 at 07 :00 Acetaminophen (Tylenol Liquid) 650 mg Q4H PRN PO TEMP > 37C; Start 12/30/16 at 07:00 Acetaminophen (Tylenol Supp) 500 mg Q6H [place] ; Start 12/31/16 at 07:00 Acetaminophen (Tylenol Liquid) 500 mg Q6H PO ; Start 12/31/16 at 07:00 Meperidine HCl (Demerol) 12.5 mg Q4H PRN IV POST OPERATIVE SHIVERING; Start at 07:00 Meperidine HCl (Demerol) 25 mg Q4H PRN IV POST OPERATIVE SHIVERING; Start 12/30 at 07:00 Eye Lubricant (Akwa Oint) 1 applic Q6 BOTH EYES Last administered on 12/31/16 11:13; Admin Dose 1 APPLIC; Start 12/30/16 at 12:00 Eye Lubricant (Artificial Tears Oph) 2 drop Q6 BOTH EYES Last administered on 11:13; Admin Dose 2 DROP; Start 12/30/16 at 12:00 Lorazepam 2 mg 2 mg Q6H PRN IV seizure Last administered on 12/30/16 09:41; Admin Dose 2 MG; Start 12/30/16 at 07:30 Fentanyl 100 ml @ 2.5 mls/hr TITRATE IV Last administered on 12/30/16 23:01; Admin Dose 2.5 MLS/HR; Start 12/30/16 at 07:30 Midazolam HCl 50 ml @ 1 mls/hr TITRATE IV Last administered on 12/31/16 11:07 ; Admin Dose 7 MLS/HR; Start 12/30/16 at 08:00 Vecuronium [place]/Dextrose (Norcuron/D5W) 100 ml @ 3.13 mls/hr TITRATE IV Last administered on 12/30/16 09:45; Admin Dose 3.13 MLS/HR; Start 12/30/16 at 09:00 Miscellaneous Information 1 ea NOTE XX ; Start 12/30/16 at 09:00 Glucose (Glutose) 15 gm Q15M PRN PO DECREASED GLUCOSE; Start 12/30/16 at 09:00 Glucose (Glutose) 22.5 gm Q15M PRN PO DECREASED GLUCOSE; Start 12/30/16 at 09: 00 Dextrose (D50w Syringe) 25 ml Q15M PRN IV DECREASED GLUCOSE; Start 12/30/16 at 09:00 Dextrose (D50w Syringe) 50 ml Q15M PRN IV DECREASED GLUCOSE; Start 12/30/16 at 09:00 Glucagon (Glucagen) 1 mg Q15M PRN IM DECREASED GLUCOSE; Start 12/30/16 at 09:00 Glucose 15 gm 15 gm Q15M PRN BUCCAL DECREASED GLUCOSE; Start 12/30/16 at 09:00 Valproate Sodium 500 mg/Dextrose 55 ml @ 55 mls/hr Q8 IVPB Last administered on 12/31/16 05:43; Admin Dose 55 MLS/HR; Start 12/30/16 at 10:30 Levetiracetam 750 mg/Sodium Chloride 107.5 ml @ 430 mls/hr Q12 IVPB Last administered on 12/31/16 08:19; Admin Dose 430 MLS/HR; Start 12/30/16 at 12:30 Cefepime HCl 50 ml @ 100 mls/hr Q12 IVPB Last administered on 12/31/16 08:19 ; Admin Dose 100 MLS/HR; Start 12/30/16 at 21:00 Vancomycin HCl 750 mg/Sodium Chloride 150 ml @ 75 mls/hr Q8H IVPB Last administered on 12/31/16 11:13; Admin Dose 75 MLS/HR; Start 12/31/16 at 03:00 Dextrose/Sodium Chloride 1,000 ml @ 60 mls/hr [id number] IV Last administered on 12/30/16 21:09; Admin Dose 60 MLS/HR; Start 12/30/16 at 20:30 Norepinephrine (Levophed) 250 ml @ 1.875 mls/ hr TITRATE IV Last administered on 12/31/16 00:50; Admin Dose 3.75 MLS/HR; Start 12/31/16 at 00:00; Stop at 23:59 Miscellaneous Information VANCO TROUGH @ 1,800 ON... ONCE ONCE XX ; Start at 18:00; Stop 12/31/16 at 18:01 Sodium Chloride (NS) 500 ml @ 500 mls/hr Q1H ONCE IV Last administered on 12/31 13:33; Admin Dose 500 MLS/HR; Start 12/31/16 at 13:30; Stop 12/31/16 at 14 :29 TARAS GARCIA MD Dec 31, 2016 13:56
--- NOTE | 2016-12-31 14:54 | PN ---
Date/Time of Note Date/Time of Note DATE: 12/31/16 TIME: 14:43 Assessment/Plan VTE Prophylaxis VTE Prophylaxis Intervention: SCD's Lines/Catheters IV Catheter Type (from Nrs): Peripheral IV Urinary Cath still in place: Yes Reason Cath still needed: other (indicate) (critically ill) Assessment/Plan Assessment/Plan 1. Acute respiratory failure s/p Cardiac arrest - Unknown etiology. She was taken to [facility] and found to have clean coronaries with EF 20% - Cardiology on board and recommendations appreciated. Possible need for ICD based on neurological outcome - Once BP can tolerate, will start ACEi and BB for systolic HF 2. New onset seizures - plans for EEG after rewarming and MRI brain when stable - Will continue on antiepileptics 3. Abdominal pain/weight loss/menstrual abnormalities - Patient will need malignancy workup once more stable - Per mother, she was having GI issues and either vomiting or experiencing diarrhea with meals, ? Celiacs - Per niece, having heavy menstrual bleeding. will need CT abdomen/pelvis to r/ o any abnormalities. 4. Polyuria - Secondary to volume expansion with IVF - ? DI. Per nephro, urine studies ordered and will monitor I/Os 5. Leukocytosis - Unknown source. Currently receiving Vanc and Cefepime 6. hyponatremia- improving - Will continue to monitor 7. Hypokalemia, resolved. Continue to observe. 8. Encephalopathy. Etiology secondary to code arrest. - Neurology on board and recommendations appreciated. - Utox negative >40 minutes of critical time was spent with patient. Spoke with brother and mother at bedside. Subjective 24 Hr Interval Summary Free Text/Dictation Patient still intubated and sedated. She is currently being rewarmed. She has been having increased urine output as well overnight. Exam/Review of Systems Vital Signs Vitals Vital Signs Date Time Temp Pulse Resp B/P Pulse Ox O2 Delivery O2 Flow Rate FiO2 12/31/16 14:30 92.8 12/31/16 14:00 105 16 123/94 100 Mechanical Ventilator 12/31/16 11:30 30 Intake and Output 12/30/16 12/30/16 12/31/16 15:00 23:00 07:00 Intake Total 2148.15 ml 1928.87 ml 2614.045 ml Output Total 834 ml 1685 ml 1939 ml Balance 1314.15 ml 243.87 ml 675.045 ml Exam General: Intubated on mechanical ventilation and sedated HEENT: Intubated, nonresponsive. Neck: No rigidity or meningismus Lungs: diminished breath sounds, no crackles, or wheezes Heart: Regular rhythm, tachycardic. no murmurs Abdomen: Soft , nontender, nondistended , bowel sounds are present. No guarding no rebound tenderness Extremities: Normal to inspection, no edema no cyanosis Results Result Diagram: 12/31/16 0400 12/31/16 0400 Results 24 hrs Laboratory Tests Test 12/30/16 16:20 12/30/16 20:12 12/30/16 21:00 12/30/16 21:15 Bedside Glucose 92 85 89 Blood Gas Specimen Source Blood arterial Arterial Blood Date Drawn 12/30/2016 9:14:00 PM Arterial Blood pH (Temp corrected) 7.291 *L Arterial Blood pCO2 (Temp correct) 21.9 L Arterial Blood pO2 (Temp corrected) 161.8 H Arterial Blood HCO3 11.0 L Arterial Blood Base Excess -15.0 L Arterial Blood Oxygen Saturation 99.0 H Virgilio Test N/A Arterial Blood Gas Puncture Site LB Arterial Blood Carboxyhemoglobin 0.3 Arterial Blood Methemoglobin 0.2 Blood Gas A-a O2 Differential 29.8 H Oxyhemoglobin Percent 98.5 Total Hemoglobin 14.4 Blood Gas Temperature 32.0 Blood Gas Respiration Rate 16.0 Blood Gas Actual Respiration Rate 16 Blood Gas Modality VENT - AC FiO2 30.0 Blood Gas Tidal Volume 500.0 Blood Gas Low PEEP Setting 5.0 Blood Gas Inspiratory Pressure 18.0 Blood Gas Critical Value Read Back Susan VALLADARES RN Blood Gas Notified Whom Blood Gas Notified Time 12/30/2016 9:25:00 PM Test 12/30/16 23:30 12/30/16 23:40 12/31/16 04:00 12/31/16 04:24 Sodium Level 132 L 136 Potassium Level 5.6 H 4.3 Chloride Level 110 111 H Carbon Dioxide Level 17 L 17 L Anion Gap 11 12 Blood Urea Nitrogen 7 6 L Creatinine 0.44 0.44 Glucose Level 116 107 Calcium Level 6.6 L 7.1 L Phosphorus Level 2.0 #L Magnesium Level 4.2 #H 1.9 # Bedside Glucose 86 80 White Blood Count 25.5 H Red Blood Count 4.43 Hemoglobin 12.7 Hematocrit 38.0 Mean Corpuscular Volume 85.8 Mean Corpuscular Hemoglobin 28.7 L Mean Corpuscular Hemoglobin Concent 33.4 Red Cell Distribution Width 12.1 Platelet Count 222 Mean Platelet Volume 11.0 H Neutrophils % 90.8 H Lymphocytes % 3.7 L Monocytes % 4.8 Eosinophils % 0.0 Basophils % 0.1 Nucleated Red Blood Cells % 0.0 Neutrophils # 23.1 H Lymphocytes # 0.9 Monocytes # 1.2 H Eosinophils # 0.0 Basophils # 0.0 Nucleated Red Blood Cells # 0.0 Test 12/31/16 05:00 12/31/16 06:00 Urine Color COLORLESS Urine Clarity CLEAR Urine pH 5.0 Urine Specific [place] 1.010 Urine Ketones TRACE A Urine Nitrite NEGATIVE Urine Bilirubin NEGATIVE Urine Urobilinogen NEGATIVE Urine Leukocyte Esterase NEGATIVE Urine Hemoglobin NEGATIVE Urine Osmolality 491 Urine Random Sodium > 198 H Urine Glucose 1+ H Urine Total Protein NEGATIVE Blood Gas Specimen Source Blood arterial Arterial Blood Date Drawn 12/31/2016 6:40:12 AM Arterial Blood pH (Temp corrected) 7.360 Arterial Blood pCO2 (Temp correct) 26.2 L Arterial Blood pO2 (Temp corrected) 148.9 H Arterial Blood HCO3 15.2 L Arterial Blood Base Excess -9.9 L Arterial Blood Oxygen Saturation 99.0 H Virgilio Test N/A Arterial Blood Gas Puncture Site LB Arterial Blood Carboxyhemoglobin 0.3 Arterial Blood Methemoglobin 0.2 Blood Gas A-a O2 Differential 37.0 H Oxyhemoglobin Percent 98.5 Total Hemoglobin 13.6 Blood Gas Temperature 32.9 Blood Gas Respiration Rate 16.0 Blood Gas Actual Respiration Rate 17 Blood Gas Modality VENT - AC FiO2 30.0 Blood Gas Tidal Volume 500.0 Blood Gas Low PEEP Setting 5.0 Blood Gas Notified Whom TM Blood Gas Notified Time 12/31/2016 6:54:32 AM Medications Medications Current Medications Morphine Sulfate (morphine) 2 mg Q2H PRN IV FOR NON CARDIAC PAIN (4-10); Start 12/30/16 at 06:30 Ondansetron HCl (Zofran Inj) 4 mg Q6H PRN IV NAUSEA AND/OR VOMITING; Start at 07:00 Acetaminophen (Tylenol Supp) 650 mg Q4H PRN [place] PAIN LEVEL 1-3 OR FEVER; Start 12/30/16 at 07:00 Lorazepam (Ativan) 1 mg Q2H PRN IV ANXIETY Last administered on 12/30/16 09:41 ; Admin Dose 1 MG; Start 12/30/16 at 07:00 Famotidine (Pepcid Iv) 20 mg DAILY IV Last administered on 12/31/16 08:19; Admin Dose 20 MG; Start 12/31/16 at 09:00 Acetaminophen (Tylenol Supp) 650 mg Q4H PRN [place] TEMP > 37C; Start 12/30/16 at 07 :00 Acetaminophen (Tylenol Liquid) 650 mg Q4H PRN PO TEMP > 37C; Start 12/30/16 at 07:00 Acetaminophen (Tylenol Supp) 500 mg Q6H [place] ; Start 12/31/16 at 07:00 Acetaminophen (Tylenol Liquid) 500 mg Q6H PO ; Start 12/31/16 at 07:00 Meperidine HCl (Demerol) 12.5 mg Q4H PRN IV POST OPERATIVE SHIVERING; Start at 07:00 Meperidine HCl (Demerol) 25 mg Q4H PRN IV POST OPERATIVE SHIVERING; Start 12/30 at 07:00 Eye Lubricant (Akwa Oint) 1 applic Q6 BOTH EYES Last administered on 12/31/16 11:13; Admin Dose 1 APPLIC; Start 12/30/16 at 12:00 Eye Lubricant (Artificial Tears Oph) 2 drop Q6 BOTH EYES Last administered on 11:13; Admin Dose 2 DROP; Start 12/30/16 at 12:00 Lorazepam 2 mg 2 mg Q6H PRN IV seizure Last administered on 12/30/16 09:41; Admin Dose 2 MG; Start 12/30/16 at 07:30 Fentanyl 100 ml @ 2.5 mls/hr TITRATE IV Last administered on 12/30/16 23:01; Admin Dose 2.5 MLS/HR; Start 12/30/16 at 07:30 Midazolam HCl 50 ml @ 1 mls/hr TITRATE IV Last administered on 12/31/16 11:07 ; Admin Dose 7 MLS/HR; Start 12/30/16 at 08:00 Vecuronium [place]/Dextrose (Norcuron/D5W) 100 ml @ 3.13 mls/hr TITRATE IV Last administered on 12/30/16 09:45; Admin Dose 3.13 MLS/HR; Start 12/30/16 at 09:00 Miscellaneous Information 1 ea NOTE XX ; Start 12/30/16 at 09:00 Glucose (Glutose) 15 gm Q15M PRN PO DECREASED GLUCOSE; Start 12/30/16 at 09:00 Glucose (Glutose) 22.5 gm Q15M PRN PO DECREASED GLUCOSE; Start 12/30/16 at 09: 00 Dextrose (D50w Syringe) 25 ml Q15M PRN IV DECREASED GLUCOSE; Start 12/30/16 at 09:00 Dextrose (D50w Syringe) 50 ml Q15M PRN IV DECREASED GLUCOSE; Start 12/30/16 at 09:00 Glucagon (Glucagen) 1 mg Q15M PRN IM DECREASED GLUCOSE; Start 12/30/16 at 09:00 Glucose 15 gm 15 gm Q15M PRN BUCCAL DECREASED GLUCOSE; Start 12/30/16 at 09:00 Valproate Sodium 500 mg/Dextrose 55 ml @ 55 mls/hr Q8 IVPB Last administered on 12/31/16 14:08; Admin Dose 55 MLS/HR; Start 12/30/16 at 10:30 Levetiracetam 750 mg/Sodium Chloride 107.5 ml @ 430 mls/hr Q12 IVPB Last administered on 12/31/16 08:19; Admin Dose 430 MLS/HR; Start 12/30/16 at 12:30 Cefepime HCl 50 ml @ 100 mls/hr Q12 IVPB Last administered on 12/31/16 08:19 ; Admin Dose 100 MLS/HR; Start 12/30/16 at 21:00 Vancomycin HCl 750 mg/Sodium Chloride 150 ml @ 75 mls/hr Q8H IVPB Last administered on 12/31/16 11:13; Admin Dose 75 MLS/HR; Start 12/31/16 at 03:00 Dextrose/Sodium Chloride 1,000 ml @ 60 mls/hr [id number] IV Last administered on 12/30/16 21:09; Admin Dose 60 MLS/HR; Start 12/30/16 at 20:30 Norepinephrine (Levophed) 250 ml @ 1.875 mls/ hr TITRATE IV Last administered on 12/31/16 00:50; Admin Dose 3.75 MLS/HR; Start 12/31/16 at 00:00; Stop at 23:59 Miscellaneous Information (*Rx Drug Level Order Reminder*) VANCO TROUGH @ 1, 800 ON... ONCE ONCE XX ; Start 12/31/16 at 18:00; Stop 12/31/16 at 18:01 SHERLY GERARDO MD Dec 31, 2016 14:54
[2016-12-31 16:16] LABS: ABNORMAL IP MESSAGE 1; HEMATOCRIT 36.7 % (37.0-47.0); HEMOGLOBIN 12.6 g/dl (12.0-16.0); MEAN CORPUSCULAR HEMOGLOBIN 28.4 pg (29.0-33.0); MEAN CORPUSCULAR HGB CONC 34.3 g/dl (32.0-37.0); MEAN CORPUSCULAR VOLUME 82.7 fl (82.0-101.0); MEAN PLATELET VOLUME 11.4 fl (7.4-10.4); PLATELET COUNT 199 10^3/UL (140-415); RED BLOOD COUNT 4.44 10^6/ul (4.20-5.40); RED CELL DISTRIBUTION WIDTH 12.1 % (11.5-14.5); WHITE BLOOD COUNT 24.3 10^3/ul (4.8-10.8)
[2016-12-31 16:19] LABS: POSITIVE DIFF @See below
[2016-12-31 16:39] LABS: CALCIUM 6.8 mg/dl (8.4-10.2); CREATININE 0.39 mg/dl (0.44-1.00); MAGNESIUM 1.9 mg/dl (1.7-2.5); POTASSIUM 3.4 mmol/L (3.5-5.1)
[2016-12-31 17:27] LABS: BURR CELLS 1+; LYMPHOCYTES # 0.7 10^3/ul (0.8-2.9); MONOCYTES % (M) 4 % (0-11)
[2016-12-31] MEDS: POTASSIUM CHLORIDE 50 ML IVPB PRN ×3 (17:27→19:39)
[2016-12-31] MEDS ORDERED: CALCIUM GLUCONATE 10% 2 GM in SOD CHLORIDE 0.9% 100 ML IVPB ONE (18:00)
[2016-12-31] MEDS: SOD CHLORIDE 0.9% 1,000 ML IV SCH (18:29)
[2016-12-31 23:25] LABS: CALCIUM 7.5 mg/dl (8.4-10.2); CREATININE 0.48 mg/dl (0.44-1.00); POTASSIUM 4.7 mmol/L (3.5-5.1)
[2017-01-01] VITALS (77 sets, daily range): BP systolic 86–178; BP diastolic 42–116; PULSE 97–168; RESP 12–25
[2017-01-01] MEDS: ACETAMINOPHEN 650MG/20.3ML CUP PO SCH ×4 (00:52→17:50)
[2017-01-01] MEDS: NORepinephrine 8MG/250 ML (PMX 250 ML IV SCH (02:33)
[2017-01-01] MEDS ORDERED: SOD CHLORIDE 0.9% 1,000 ML IV ONE (03:00)
[2017-01-01] MEDS: VANCOMYCIN 1 GM in NS 250 ML IVPB SCH ×3 (03:30→21:06)
[2017-01-01 05:28] LABS: BASOPHILS % 0.1 % (0.0-2.0); HEMATOCRIT 32.6 % (37.0-47.0); HEMOGLOBIN 11.1 g/dl (12.0-16.0); LYMPHOCYTES # 1.2 10^3/ul (0.8-2.9); LYMPHOCYTES % 5.7 % (15.0-51.0); MEAN CORPUSCULAR HEMOGLOBIN 28.2 pg (29.0-33.0); MEAN PLATELET VOLUME 12.4 fl (7.4-10.4); MONOCYTES % 4.9 % (0.0-11.0); NEUTROPHIL # 18.5 10^3/ul (1.6-7.5); NEUTROPHILS % 88.9 % (39.0-77.0); RED BLOOD COUNT 3.93 10^6/ul (4.20-5.40); RED CELL DISTRIBUTION WIDTH 12.3 % (11.5-14.5); WHITE BLOOD COUNT 20.8 10^3/ul (4.8-10.8)
[2017-01-01] MEDS: VALPROATE INJ 500 MG in DEXTROSE 5% 50 ML IVPB SCH ×2 (05:35→15:14)
[2017-01-01] MEDS: OCULAR LUBRICANT 3.5 GM OPH OINT BOTH EYES SCH ×3 (05:35→17:48)
[2017-01-01] MEDS: ARTIFICIAL TEARS 15 ML OPH BOTH EYES SCH ×3 (05:35→17:47)
[2017-01-01 05:36] LABS: AADO2 Arterial 61.7 mmHg (7.0-24.0); Allen Test ACCEPTAB; Arterial Base Excess -5.9 mmol/L (-3.0-3); Arterial COHb 0.3 % (0.0-3.0); Arterial HCO3 16.6 mmol/L (22.0-26.0); Arterial MetHb 0.2 % (0.0-1.5); Arterial Total Hemglobin 12.4 g/dl (12.0-18.0); MODE VENT - AC
[2017-01-01 06:04] LABS: CALCIUM 6.8 mg/dl (8.4-10.2); CREATININE 0.54 mg/dl (0.44-1.00); MAGNESIUM 1.8 mg/dl (1.7-2.5); POTASSIUM 3.6 mmol/L (3.5-5.1)
[2017-01-01 06:08] LABS: PLATELET COUNT 213 10^3/UL (140-415); POSITIVE DIFF @See below
--- NOTE | 2017-01-01 06:58 | RADRPT ---
PROCEDURE: XR Chest. CLINICAL INDICATION: Intubated TECHNIQUE: Single frontal view of the chest. COMPARISON: 12/31/2016 and additional priors FINDINGS: Endotracheal tube tip well positioned over the mid tracheal shadow. Enteric tube tip over the upper left abdomen . Left subclavian catheter tip over the cavoatrial junction. Stable cardiomediastinal s ilhouette. Improved aeration with residual right lung interstitial opacities. No significant pleural effusion. No evidence of pneumothorax. IMPRESSION: 1. Appropriate position of central line and tubes. 2. Improved aeration with residual right lung interstitial opacities likely representing resolving p ulmonary edema. RPTAT:AAJJ Physician Elizabeth Date Time Electronically viewed and signed by Physician Elizabeth on 01/01/2017 06:57 /
--- NOTE | 2017-01-01 08:01 | PN ---
DATE: 01/01/2017 SUBJECTIVE DATA: The patient remains critically ill, on ventilatory support. The patient is status post hypothermic protocol. The patient's urinary output has been adequate. No other acute events noted. No hemoptysis, hematemesis, hematochezia. OBJECTIVE DATA: VITAL SIGNS: Blood pressure is 117/65, respirations 22, pulse 109, temperature 98.0. I's and O's patient had 4.5 L in, 2.8 L out. HEENT: Head is normocephalic. NECK: Supple. HEART: Regular rate. LUNGS: Show diminished breath sounds at the base. ABDOMEN: Soft, nontender to palpation. No rebound or guarding. EXTREMITIES: Negative for clubbing, cyanosis. No edema. DERMATOLOGIC: No rashes. MUSCULOSKELETAL: No joint effusion. NEUROLOGIC: The patient is obtunded. LABORATORY AND DIAGNOSTIC DATA: Sodium 130, potassium 3.6, chloride 106, BUN 4, creatinine 0.54, calcium 6.8, white count 20.8, hemoglobin 9.1, hematocrit 32.6, platelet count is 213. The patient's chest x-ray shows right lung opacity possibly resolving edema. ASSESSMENT AND PLAN: 1. Hyponatremia. Etiology is likely multifactorial secondary to a course of DDAVP in conjunction with hypertonic fluids. The possibility of an underlying syndrome of inappropriate antidiuretic hormone secretion is a consideration. At this point, would continue current treatment plan. Continue to minimize any hypotonic fluid. We will monitor serial sodium levels closely. 2. Polyuria. Etiology is likely due to volume expansion. We will continue to monitor urine output closely. 3. Hypokalemia, resolved. 4. Cardiac arrest. Etiology is unknown. The patient is status post cardiac catheterization with ejection fraction of 20 percent. Unclear if this is due to recent cardiac arrest. Continue to monitor. Follow up with Cardiology. 5. Encephalopathy secondary to code arrest. Follow up with Neurology. 6. Recent history of weight loss with unclear etiology. 7. Seizure. Continue anti-epileptics. 8. Leukocytosis. Etiology may be secondary to pneumonia versus systemic inflammatory response syndrome. The patient is on antibiotic therapy. We will continue to monitor. Dictated By: Ag Lewis DO /guillaume/traci /Document#: [id number]
[2017-01-01 08:05] LABS: ANISOCYTOSIS 2+ (0-0); EOSINOPHILS % (M) 1 % (0-7); MICROCYTOSIS 1+ (0-0); MONOCYTES % (M) 1 % (0-11); PLATELET ESTIMATE NORMAL; POIKILOCYTOSIS 3+ (0-0); POLYCHROMASIA 1+ (0-0)
[2017-01-01] MEDS: FAMOTIDINE 20 MG INJ IV SCH (08:46)
[2017-01-01] MEDS: SOD CHLORIDE 0.9% 1,000 ML IV SCH (08:47)
[2017-01-01] MEDS: CEFEPIME 1GM/50 ML (PMX) 50 ML IVPB SCH ×2 (08:47→21:06)
[2017-01-01] MEDS: LEVETIRACETAM IV 750 MG in SOD CHLORIDE 0.9% 100 ML IVPB SCH ×2 (08:47→21:06)
[2017-01-01] MEDS ORDERED: SOD CHLORIDE 0.9% 500 ML IV ONE (09:00)
--- NOTE | 2017-01-01 10:13 | PN ---
Date/Time of Note Date/Time of Note DATE: 01/01/17 TIME: 10:13 Assessment/Plan VTE Prophylaxis VTE Prophylaxis Intervention: SCD's Lines/Catheters [facility]from [facility] Central Line Central line still needed: Yes Urinary Cath still in place: Yes Reason Cath still needed: other (indicate) (critically ill) Assessment/Plan Assessment/Plan 1. Acute respiratory failure s/p Cardiac arrest - Still remains intubated and unresponsive - Unknown etiology. She was taken to general production laborer and found to have clean coronaries with EF 20% - Cardiology on board and recommendations appreciated. Possible need for ICD based on neurological outcome - Started on BB today - Still requiring small amount of pressor support - Once BP can tolerate, will start ACEi for systolic HF 2. New onset seizures - plans for EEG after rewarming and MRI brain when stable - Will continue on antiepileptics - no further episodes of seizures 3. Abdominal pain/weight loss/menstrual abnormalities - Patient will need malignancy workup once more stable - Per mother, she was having GI issues, ? Celiacs 4. Polyuria - Secondary to volume expansion with IVF - ? DI. Per nephro, urine studies ordered and will monitor I/Os 5. Leukocytosis- trending downward - Unknown source. Currently receiving Vanc and Cefepime 6. hyponatremia- improving - Appears like SIADH with high urine osmol and urine sodium - Nephrology on board and appreciate recommendations 7. Hypokalemia, resolved. Continue to observe. 8. Encephalopathy. Etiology secondary to code arrest. - Neurology on board and recommendations appreciated. - Utox negative >40 minutes of critical time was spent with patient. Spoke with brother at bedside. Subjective 24 Hr Interval Summary Free Text/Dictation Patient completed rewarming and still intubated. Remains unresponsive and has putting out a large amount of urine. No further seizures appreciated. Exam/Review of Systems Vital Signs Vitals Vital Signs Date Time Temp Pulse Resp B/P Pulse Ox O2 Delivery O2 Flow Rate FiO2 01/01/17 09:15 137 17 132/85 100 Mechanical Ventilator 01/01/17 08:11 30 01/01/17 08:00 97.8 Intake and Output 12/31/16 12/31/16 01/01/17 15:00 23:00 07:00 Intake Total 1534.5 ml 1179.25 ml 1757.50 ml Output Total 1461 ml 854 ml 326 ml Balance 73.5 ml 325.25 ml 1431.50 ml Exam General: Intubated on mechanical ventilation, nonresponsive CVS: Regular rhythm, tachycardic. no murmurs Lungs: diminished breath sounds, no crackles, or wheezes Abdomen: Soft , nontender, nondistended , bowel sounds are present. No guarding no rebound tenderness Extremities: Normal to inspection, no edema no cyanosis Results Result Diagram: 01/01/17 0400 01/01/17 0400 Results 24 hrs Laboratory Tests Test 12/31/16 15:55 12/31/16 18:50 12/31/16 23:00 01/01/17 04:00 White Blood Count 24.3 H 20.8 H Red Blood Count 4.44 3.93 L Hemoglobin 12.6 11.1 L Hematocrit 36.7 L 32.6 L Mean Corpuscular Volume 82.7 83.0 Mean Corpuscular Hemoglobin 28.4 L 28.2 L Mean Corpuscular Hemoglobin Concent 34.3 34.0 Red Cell Distribution Width 12.1 12.3 Platelet Count 199 213 Mean Platelet Volume 11.4 H 12.4 H Segmented Neutrophils % (Manual) 93 H 95 H Lymphocytes % (Manual) 3 L 2 L Monocytes % (Manual) 4 1 Nucleated Red Blood Cells % 0.0 0.0 Absolute Lymphocytes (Manual) 0.7 L 0.4 L Lymphocytes # 0.7 L 1.2 Monocytes # 1.0 H 1.0 H Absolute Monocytes (Manual) 0.9 0.2 L Sodium Level 129 L 125 L 130 L Potassium Level 3.4 L 4.7 3.6 Chloride Level 103 103 106 Carbon Dioxide Level 18 L 17 L 19 L Anion Gap 11 10 9 Blood Urea Nitrogen 3 L 3 L 4 L Creatinine 0.39 L 0.48 0.54 Glucose Level 146 98 # 84 Calcium Level 6.8 L 7.5 L 6.8 L Magnesium Level 1.9 1.8 Osmolality 260 L Vancomycin Level Trough 7.8 L Neutrophils % 88.9 H Band Neutrophils % (Manual) 1 Lymphocytes % 5.7 L Monocytes % 4.9 Eosinophils % 0.0 Eosinophils % (Manual) 1 Basophils % 0.1 Neutrophils # 18.5 H Neutrophils # (Manual) 19.8 H Band Neutrophils # 0.2 Eosinophils # 0.0 Basophils # 0.0 Nucleated Red Blood Cells # 0.0 Platelet Estimate NORMAL Polychromasia 1+ Poikilocytosis 3+ Anisocytosis 2+ Microcytosis 1+ Macrocytosis 1+ Test 01/01/17 04:30 01/01/17 06:00 Valproic Acid (Depakene) Level 33 L Blood Gas Specimen Source Blood arterial Arterial Blood Date Drawn 01/01/2017 5:20:33 AM Arterial Blood pH (Temp corrected) 7.441 Arterial Blood pCO2 (Temp correct) 25.0 L Arterial Blood pO2 (Temp corrected) 122.8 H Arterial Blood HCO3 16.6 L Arterial Blood Base Excess -5.9 L Arterial Blood Oxygen Saturation 98.5 H Virgilio Test ACCEPTAB Arterial Blood Gas Puncture Site Right Radial Arterial Blood Carboxyhemoglobin 0.3 Arterial Blood Methemoglobin 0.2 Blood Gas A-a O2 Differential 61.7 H Oxyhemoglobin Percent 98.0 Total Hemoglobin 12.4 Blood Gas Temperature 37.0 Blood Gas Respiration Rate 16.0 Blood Gas Actual Respiration Rate 16 Blood Gas Modality VENT - AC FiO2 30.0 Blood Gas Tidal Volume 500.0 Blood Gas Low PEEP Setting 5.0 Blood Gas Inspiratory Pressure 18.0 Blood Gas Notified Whom WF Blood Gas Notified Time 01/01/2017 5:35:49 AM Medications Medications Current Medications Morphine Sulfate (morphine) 2 mg Q2H PRN IV FOR NON CARDIAC PAIN (4-10); Start 12/30/16 at 06:30 Ondansetron HCl (Zofran Inj) 4 mg Q6H PRN IV NAUSEA AND/OR VOMITING; Start at 07:00 Lorazepam (Ativan) 1 mg Q2H PRN IV ANXIETY Last administered on 12/30/16 09:41 ; Admin Dose 1 MG; Start 12/30/16 at 07:00 Famotidine (Pepcid Iv) 20 mg DAILY IV Last administered on 01/01/17 08:46; Admin Dose 20 MG; Start 12/31/16 at 09:00 Acetaminophen (Tylenol Supp) 650 mg Q4H PRN [place] TEMP > 37C; Start 12/30/16 at 07 :00 Acetaminophen (Tylenol Liquid) 500 mg Q6H PO Last administered on 01/01/17 00: 52; Admin Dose 500 MG; Start 12/31/16 at 07:00 Meperidine HCl (Demerol) 12.5 mg Q4H PRN IV POST OPERATIVE SHIVERING; Start at 07:00 Meperidine HCl (Demerol) 25 mg Q4H PRN IV POST OPERATIVE SHIVERING; Start 12/30 at 07:00 Eye Lubricant (Akwa Oint) 1 applic Q6 BOTH EYES Last administered on 01/01/17 05:35; Admin Dose 1 APPLIC; Start 12/30/16 at 12:00 Eye Lubricant (Artificial Tears Oph) 2 drop Q6 BOTH EYES Last administered on 05:35; Admin Dose 2 DROP; Start 12/30/16 at 12:00 Lorazepam 2 mg 2 mg Q6H PRN IV seizure Last administered on 12/30/16 09:41; Admin Dose 2 MG; Start 12/30/16 at 07:30 Fentanyl 100 ml @ 2.5 mls/hr TITRATE IV Last administered on 12/30/16 23:01; Admin Dose 2.5 MLS/HR; Start 12/30/16 at 07:30 Midazolam HCl 50 ml @ 1 mls/hr TITRATE IV Last administered on 12/31/16 18:28 ; Admin Dose 7 MLS/HR; Start 12/30/16 at 08:00 Vecuronium [place]/Dextrose (Norcuron/D5W) 100 ml @ 3.13 mls/hr TITRATE IV Last administered on 12/30/16 09:45; Admin Dose 3.13 MLS/HR; Start 12/30/16 at 09:00 Miscellaneous Information 1 ea NOTE XX ; Start 12/30/16 at 09:00 Glucose (Glutose) 15 gm Q15M PRN PO DECREASED GLUCOSE; Start 12/30/16 at 09:00 Glucose (Glutose) 22.5 gm Q15M PRN PO DECREASED GLUCOSE; Start 12/30/16 at 09: 00 Dextrose (D50w Syringe) 25 ml Q15M PRN IV DECREASED GLUCOSE; Start 12/30/16 at 09:00 Dextrose (D50w Syringe) 50 ml Q15M PRN IV DECREASED GLUCOSE; Start 12/30/16 at 09:00 Glucagon (Glucagen) 1 mg Q15M PRN IM DECREASED GLUCOSE; Start 12/30/16 at 09:00 Glucose 15 gm 15 gm Q15M PRN BUCCAL DECREASED GLUCOSE; Start 12/30/16 at 09:00 Valproate Sodium 500 mg/Dextrose 55 ml @ 55 mls/hr Q8 IVPB Last administered on 01/01/17 05:35; Admin Dose 55 MLS/HR; Start 12/30/16 at 10:30 Levetiracetam 750 mg/Sodium Chloride 107.5 ml @ 430 mls/hr Q12 IVPB Last administered on 01/01/17 08:47; Admin Dose 430 MLS/HR; Start 12/30/16 at 12:30 Cefepime HCl 50 ml @ 100 mls/hr Q12 IVPB Last administered on 01/01/17 08:47 ; Admin Dose 100 MLS/HR; Start 12/30/16 at 21:00 Norepinephrine 250 ml @ 1.875 mls/ hr TITRATE IV Last administered on 02:33; Admin Dose 1.875 MLS/HR; Start 12/31/16 at 00:00; Stop 01/02/17 at 23:59 Sodium Chloride 1,000 ml @ 60 mls/hr [id number] IV Last administered on 08:47; Admin Dose 60 MLS/HR; Start 12/31/16 at 18:00 Vancomycin HCl (Vancocin) 250 ml @ 125 mls/hr Q8H IVPB Last administered on 03:30; Admin Dose 125 MLS/HR; Start 01/01/17 at 04:00 SHERLY GERARDO MD Jan 01, 2017 10:13
--- NOTE | 2017-01-01 11:03 | CONS ---
Date/Time of Note Date/Time of Note DATE: 01/01/17 TIME: 11:01 Consult Date/Type/Reason Admit Date/Time Dec 30, 2016 at 06:20 Initial Consult Date 12/30/16 Type of Consultation: Pulmonary Subjective Sedation turned off this morning. Patient still somnolent. Objective Vital Signs Date Time Temp Pulse Resp B/P Pulse Ox O2 Delivery O2 Flow Rate FiO2 01/01/17 10:42 141 16 100 30 01/01/17 09:15 132/85 Mechanical Ventilator 01/01/17 08:00 97.8 Intake and Output 12/31/16 12/31/16 01/01/17 14:59 22:59 06:59 Intake Total 1543.0 ml 1179.50 ml 1823.25 ml Output Total 1556 ml 946 ml 374 ml Balance -13.0 ml 233.50 ml 1449.25 ml Exam HEENT dry mucous membranes pupils sluggish but reactive. Cardiac exam S1-S2 Respiratory clear to auscultation bilaterally no rales wheezes Abdomen soft nontender no guarding rebound Extremities no cyanosis clubbing or edema Neurologically unable to assess Results/Medications Result Diagram: 01/01/17 0400 01/01/17 0400 Results 24 hrs Laboratory Tests Test 12/31/16 15:55 12/31/16 18:50 12/31/16 23:00 01/01/17 04:00 White Blood Count 24.3 H 20.8 H Red Blood Count 4.44 3.93 L Hemoglobin 12.6 11.1 L Hematocrit 36.7 L 32.6 L Mean Corpuscular Volume 82.7 83.0 Mean Corpuscular Hemoglobin 28.4 L 28.2 L Mean Corpuscular Hemoglobin Concent 34.3 34.0 Red Cell Distribution Width 12.1 12.3 Platelet Count 199 213 Mean Platelet Volume 11.4 H 12.4 H Segmented Neutrophils % (Manual) 93 H 95 H Lymphocytes % (Manual) 3 L 2 L Monocytes % (Manual) 4 1 Nucleated Red Blood Cells % 0.0 0.0 Absolute Lymphocytes (Manual) 0.7 L 0.4 L Lymphocytes # 0.7 L 1.2 Monocytes # 1.0 H 1.0 H Absolute Monocytes (Manual) 0.9 0.2 L Sodium Level 129 L 125 L 130 L Potassium Level 3.4 L 4.7 3.6 Chloride Level 103 103 106 Carbon Dioxide Level 18 L 17 L 19 L Anion Gap 11 10 9 Blood Urea Nitrogen 3 L 3 L 4 L Creatinine 0.39 L 0.48 0.54 Glucose Level 146 98 # 84 Calcium Level 6.8 L 7.5 L 6.8 L Magnesium Level 1.9 1.8 Osmolality 260 L Vancomycin Level Trough 7.8 L Neutrophils % 88.9 H Band Neutrophils % (Manual) 1 Lymphocytes % 5.7 L Monocytes % 4.9 Eosinophils % 0.0 Eosinophils % (Manual) 1 Basophils % 0.1 Neutrophils # 18.5 H Neutrophils # (Manual) 19.8 H Band Neutrophils # 0.2 Eosinophils # 0.0 Basophils # 0.0 Nucleated Red Blood Cells # 0.0 Platelet Estimate NORMAL Polychromasia 1+ Poikilocytosis 3+ Anisocytosis 2+ Microcytosis 1+ Macrocytosis 1+ Test 01/01/17 04:30 01/01/17 06:00 Valproic Acid (Depakene) Level 33 L Blood Gas Specimen Source Blood arterial Arterial Blood Date Drawn 01/01/2017 5:20:33 AM Arterial Blood pH (Temp corrected) 7.441 Arterial Blood pCO2 (Temp correct) 25.0 L Arterial Blood pO2 (Temp corrected) 122.8 H Arterial Blood HCO3 16.6 L Arterial Blood Base Excess -5.9 L Arterial Blood Oxygen Saturation 98.5 H Virgilio Test ACCEPTAB Arterial Blood Gas Puncture Site Right Radial Arterial Blood Carboxyhemoglobin 0.3 Arterial Blood Methemoglobin 0.2 Blood Gas A-a O2 Differential 61.7 H Oxyhemoglobin Percent 98.0 Total Hemoglobin 12.4 Blood Gas Temperature 37.0 Blood Gas Respiration Rate 16.0 Blood Gas Actual Respiration Rate 16 Blood Gas Modality VENT - AC FiO2 30.0 Blood Gas Tidal Volume 500.0 Blood Gas Low PEEP Setting 5.0 Blood Gas Inspiratory Pressure 18.0 Blood Gas Notified Whom WF Blood Gas Notified Time 01/01/2017 5:35:49 AM Medications Current Medications Morphine Sulfate (morphine) 2 mg Q2H PRN IV FOR NON CARDIAC PAIN (4-10); Start 12/30/16 at 06:30 Ondansetron HCl (Zofran Inj) 4 mg Q6H PRN IV NAUSEA AND/OR VOMITING; Start at 07:00 Lorazepam (Ativan) 1 mg Q2H PRN IV ANXIETY Last administered on 12/30/16 09:41 ; Admin Dose 1 MG; Start 12/30/16 at 07:00 Famotidine (Pepcid Iv) 20 mg DAILY IV Last administered on 01/01/17 08:46; Admin Dose 20 MG; Start 12/31/16 at 09:00 Acetaminophen (Tylenol Supp) 650 mg Q4H PRN [place] TEMP > 37C; Start 12/30/16 at 07 :00 Acetaminophen (Tylenol Liquid) 500 mg Q6H PO Last administered on 01/01/17 00: 52; Admin Dose 500 MG; Start 12/31/16 at 07:00 Meperidine HCl (Demerol) 12.5 mg Q4H PRN IV POST OPERATIVE SHIVERING; Start at 07:00 Meperidine HCl (Demerol) 25 mg Q4H PRN IV POST OPERATIVE SHIVERING; Start 12/30 at 07:00 Eye Lubricant (Akwa Oint) 1 applic Q6 BOTH EYES Last administered on 01/01/17 05:35; Admin Dose 1 APPLIC; Start 12/30/16 at 12:00 Eye Lubricant (Artificial Tears Oph) 2 drop Q6 BOTH EYES Last administered on 05:35; Admin Dose 2 DROP; Start 12/30/16 at 12:00 Lorazepam 2 mg 2 mg Q6H PRN IV seizure Last administered on 12/30/16 09:41; Admin Dose 2 MG; Start 12/30/16 at 07:30 Fentanyl 100 ml @ 2.5 mls/hr TITRATE IV Last administered on 12/30/16 23:01; Admin Dose 2.5 MLS/HR; Start 12/30/16 at 07:30 Midazolam HCl 50 ml @ 1 mls/hr TITRATE IV Last administered on 12/31/16 18:28 ; Admin Dose 7 MLS/HR; Start 12/30/16 at 08:00 Vecuronium [place]/Dextrose (Norcuron/D5W) 100 ml @ 3.13 mls/hr TITRATE IV Last administered on 12/30/16 09:45; Admin Dose 3.13 MLS/HR; Start 12/30/16 at 09:00 Miscellaneous Information 1 ea NOTE XX ; Start 12/30/16 at 09:00 Glucose (Glutose) 15 gm Q15M PRN PO DECREASED GLUCOSE; Start 12/30/16 at 09:00 Glucose (Glutose) 22.5 gm Q15M PRN PO DECREASED GLUCOSE; Start 12/30/16 at 09: 00 Dextrose (D50w Syringe) 25 ml Q15M PRN IV DECREASED GLUCOSE; Start 12/30/16 at 09:00 Dextrose (D50w Syringe) 50 ml Q15M PRN IV DECREASED GLUCOSE; Start 12/30/16 at 09:00 Glucagon (Glucagen) 1 mg Q15M PRN IM DECREASED GLUCOSE; Start 12/30/16 at 09:00 Glucose 15 gm 15 gm Q15M PRN BUCCAL DECREASED GLUCOSE; Start 12/30/16 at 09:00 Valproate Sodium 500 mg/Dextrose 55 ml @ 55 mls/hr Q8 IVPB Last administered on 01/01/17 05:35; Admin Dose 55 MLS/HR; Start 12/30/16 at 10:30 Levetiracetam 750 mg/Sodium Chloride 107.5 ml @ 430 mls/hr Q12 IVPB Last administered on 01/01/17 08:47; Admin Dose 430 MLS/HR; Start 12/30/16 at 12:30 Cefepime HCl 50 ml @ 100 mls/hr Q12 IVPB Last administered on 01/01/17 08:47 ; Admin Dose 100 MLS/HR; Start 12/30/16 at 21:00 Norepinephrine 250 ml @ 1.875 mls/ hr TITRATE IV Last administered on 02:33; Admin Dose 1.875 MLS/HR; Start 12/31/16 at 00:00; Stop 01/02/17 at 23:59 Sodium Chloride 1,000 ml @ 60 mls/hr [id number] IV Last administered on 08:47; Admin Dose 60 MLS/HR; Start 12/31/16 at 18:00 Vancomycin HCl (Vancocin) 250 ml @ 125 mls/hr Q8H IVPB Last administered on 03:30; Admin Dose 125 MLS/HR; Start 01/01/17 at 04:00 Assessment/Plan Chief Complaint/Hosp Course Assessment 1. Status post cardiopulmonary arrest followed by hypothermia protocol. 2. No evidence of aspiration pneumonia on chest x-ray 3. Possible anoxic encephalopathy. 4. Possible underlying arrhythmia as cause of cardiac arrest. Plan 1. Start tube feeding 2. Continue current ventilation 3. Continue postoperative antibiotic coverage 4. Continue cardiac recommendations 5. Possible diabetes insipidus 35 minutes of critical care, discussed with family at bedside Problems: JAIRO GARCIA MD, [facility] Jan 01, 2017 11:03
--- NOTE | 2017-01-01 11:18 | CONS ---
Date/Time of Note Date/Time of Note DATE: 01/01/17 TIME: 11:16 Consult Date/Type/Reason Admit Date/Time Dec 30, 2016 at 06:20 Initial Consult Date 12/30/16 Type of Consultation: Neurology Reason for Consultation cardiac arrest Ordering Provider: SANDOVAL AMBROSE Subjective rewarming completed sedation turned off at 3 am no further seizures remains unresponsive Objective Vital Signs Date Time Temp Pulse Resp B/P Pulse Ox O2 Delivery O2 Flow Rate FiO2 01/01/17 10:42 141 16 100 30 01/01/17 09:15 132/85 Mechanical Ventilator 01/01/17 08:00 97.8 Intake and Output 12/31/16 12/31/16 01/01/17 15:00 23:00 07:00 Intake Total 1534.5 ml 1179.25 ml 1757.50 ml Output Total 1461 ml 854 ml 326 ml Balance 73.5 ml 325.25 ml 1431.50 ml Exam intubated off sedation unresponsive to stimulation CN: pupils 4 mm non reactive absent corneals absent gag Motor: absent responses in extremities to noxious Results/Medications Result Diagram: 01/01/17 0400 01/01/17 0400 Results 24 hrs Laboratory Tests Test 12/31/16 15:55 12/31/16 18:50 12/31/16 23:00 01/01/17 04:00 White Blood Count 24.3 H 20.8 H Red Blood Count 4.44 3.93 L Hemoglobin 12.6 11.1 L Hematocrit 36.7 L 32.6 L Mean Corpuscular Volume 82.7 83.0 Mean Corpuscular Hemoglobin 28.4 L 28.2 L Mean Corpuscular Hemoglobin Concent 34.3 34.0 Red Cell Distribution Width 12.1 12.3 Platelet Count 199 213 Mean Platelet Volume 11.4 H 12.4 H Segmented Neutrophils % (Manual) 93 H 95 H Lymphocytes % (Manual) 3 L 2 L Monocytes % (Manual) 4 1 Nucleated Red Blood Cells % 0.0 0.0 Absolute Lymphocytes (Manual) 0.7 L 0.4 L Lymphocytes # 0.7 L 1.2 Monocytes # 1.0 H 1.0 H Absolute Monocytes (Manual) 0.9 0.2 L Sodium Level 129 L 125 L 130 L Potassium Level 3.4 L 4.7 3.6 Chloride Level 103 103 106 Carbon Dioxide Level 18 L 17 L 19 L Anion Gap 11 10 9 Blood Urea Nitrogen 3 L 3 L 4 L Creatinine 0.39 L 0.48 0.54 Glucose Level 146 98 # 84 Calcium Level 6.8 L 7.5 L 6.8 L Magnesium Level 1.9 1.8 Osmolality 260 L Vancomycin Level Trough 7.8 L Neutrophils % 88.9 H Band Neutrophils % (Manual) 1 Lymphocytes % 5.7 L Monocytes % 4.9 Eosinophils % 0.0 Eosinophils % (Manual) 1 Basophils % 0.1 Neutrophils # 18.5 H Neutrophils # (Manual) 19.8 H Band Neutrophils # 0.2 Eosinophils # 0.0 Basophils # 0.0 Nucleated Red Blood Cells # 0.0 Platelet Estimate NORMAL Polychromasia 1+ Poikilocytosis 3+ Anisocytosis 2+ Microcytosis 1+ Macrocytosis 1+ Test 01/01/17 04:30 01/01/17 06:00 Valproic Acid (Depakene) Level 33 L Blood Gas Specimen Source Blood arterial Arterial Blood Date Drawn 01/01/2017 5:20:33 AM Arterial Blood pH (Temp corrected) 7.441 Arterial Blood pCO2 (Temp correct) 25.0 L Arterial Blood pO2 (Temp corrected) 122.8 H Arterial Blood HCO3 16.6 L Arterial Blood Base Excess -5.9 L Arterial Blood Oxygen Saturation 98.5 H Virgilio Test ACCEPTAB Arterial Blood Gas Puncture Site Right Radial Arterial Blood Carboxyhemoglobin 0.3 Arterial Blood Methemoglobin 0.2 Blood Gas A-a O2 Differential 61.7 H Oxyhemoglobin Percent 98.0 Total Hemoglobin 12.4 Blood Gas Temperature 37.0 Blood Gas Respiration Rate 16.0 Blood Gas Actual Respiration Rate 16 Blood Gas Modality VENT - AC FiO2 30.0 Blood Gas Tidal Volume 500.0 Blood Gas Low PEEP Setting 5.0 Blood Gas Inspiratory Pressure 18.0 Blood Gas Notified Whom WF Blood Gas Notified Time 01/01/2017 5:35:49 AM Medications Current Medications Morphine Sulfate (morphine) 2 mg Q2H PRN IV FOR NON CARDIAC PAIN (4-10); Start 12/30/16 at 06:30 Ondansetron HCl (Zofran Inj) 4 mg Q6H PRN IV NAUSEA AND/OR VOMITING; Start at 07:00 Lorazepam (Ativan) 1 mg Q2H PRN IV ANXIETY Last administered on 12/30/16 09:41 ; Admin Dose 1 MG; Start 12/30/16 at 07:00 Famotidine (Pepcid Iv) 20 mg DAILY IV Last administered on 01/01/17 08:46; Admin Dose 20 MG; Start 12/31/16 at 09:00 Acetaminophen (Tylenol Supp) 650 mg Q4H PRN [place] TEMP > 37C; Start 12/30/16 at 07 :00 Acetaminophen (Tylenol Liquid) 500 mg Q6H PO Last administered on 01/01/17 00: 52; Admin Dose 500 MG; Start 12/31/16 at 07:00 Meperidine HCl (Demerol) 12.5 mg Q4H PRN IV POST OPERATIVE SHIVERING; Start at 07:00 Meperidine HCl (Demerol) 25 mg Q4H PRN IV POST OPERATIVE SHIVERING; Start 12/30 at 07:00 Eye Lubricant (Akwa Oint) 1 applic Q6 BOTH EYES Last administered on 01/01/17 05:35; Admin Dose 1 APPLIC; Start 12/30/16 at 12:00 Eye Lubricant (Artificial Tears Oph) 2 drop Q6 BOTH EYES Last administered on 05:35; Admin Dose 2 DROP; Start 12/30/16 at 12:00 Lorazepam 2 mg 2 mg Q6H PRN IV seizure Last administered on 12/30/16 09:41; Admin Dose 2 MG; Start 12/30/16 at 07:30 Fentanyl 100 ml @ 2.5 mls/hr TITRATE IV Last administered on 12/30/16 23:01; Admin Dose 2.5 MLS/HR; Start 12/30/16 at 07:30 Midazolam HCl 50 ml @ 1 mls/hr TITRATE IV Last administered on 12/31/16 18:28 ; Admin Dose 7 MLS/HR; Start 12/30/16 at 08:00 Vecuronium [place]/Dextrose (Norcuron/D5W) 100 ml @ 3.13 mls/hr TITRATE IV Last administered on 12/30/16 09:45; Admin Dose 3.13 MLS/HR; Start 12/30/16 at 09:00 Miscellaneous Information 1 ea NOTE XX ; Start 12/30/16 at 09:00 Glucose (Glutose) 15 gm Q15M PRN PO DECREASED GLUCOSE; Start 12/30/16 at 09:00 Glucose (Glutose) 22.5 gm Q15M PRN PO DECREASED GLUCOSE; Start 12/30/16 at 09: 00 Dextrose (D50w Syringe) 25 ml Q15M PRN IV DECREASED GLUCOSE; Start 12/30/16 at 09:00 Dextrose (D50w Syringe) 50 ml Q15M PRN IV DECREASED GLUCOSE; Start 12/30/16 at 09:00 Glucagon (Glucagen) 1 mg Q15M PRN IM DECREASED GLUCOSE; Start 12/30/16 at 09:00 Glucose 15 gm 15 gm Q15M PRN BUCCAL DECREASED GLUCOSE; Start 12/30/16 at 09:00 Valproate Sodium 500 mg/Dextrose 55 ml @ 55 mls/hr Q8 IVPB Last administered on 01/01/17 05:35; Admin Dose 55 MLS/HR; Start 12/30/16 at 10:30 Levetiracetam 750 mg/Sodium Chloride 107.5 ml @ 430 mls/hr Q12 IVPB Last administered on 01/01/17 08:47; Admin Dose 430 MLS/HR; Start 12/30/16 at 12:30 Cefepime HCl 50 ml @ 100 mls/hr Q12 IVPB Last administered on 01/01/17 08:47 ; Admin Dose 100 MLS/HR; Start 12/30/16 at 21:00 Norepinephrine 250 ml @ 1.875 mls/ hr TITRATE IV Last administered on 02:33; Admin Dose 1.875 MLS/HR; Start 12/31/16 at 00:00; Stop 01/02/17 at 23:59 Sodium Chloride 1,000 ml @ 60 mls/hr [id number] IV Last administered on 08:47; Admin Dose 60 MLS/HR; Start 12/31/16 at 18:00 Vancomycin HCl (Vancocin) 250 ml @ 125 mls/hr Q8H IVPB Last administered on 03:30; Admin Dose 125 MLS/HR; Start 01/01/17 at 04:00 Assessment/Plan Chief Complaint/Hosp Course 26 yo female w recent unintentional weight loss, hypokalemia (K: 2.7) admitted cardiac arrest with post arrest cardiomyopathy currently being treated with hypothermia protocol on VPA, Keppra and Versed drip for seizures. -EEG pending -MRI Brain w/o contrast when stable -continue current AED dosing -check VPA levels -malignancy work up when more stable -will continue to follow Problems: IRIS PATEL MD Jan 01, 2017 11:18
--- NOTE | 2017-01-01 13:54 | CONS ---
Date/Time of Note Date/Time of Note DATE: 01/01/17 TIME: 13:50 Assessment/Plan Assessment/Plan Chief Complaint/Hosp Course Assessment: Status post ventricular fibrillation cardiac arrest - suspect ventricular arrhythmia in setting of underlying cardiomyopathy, normal coronary arteries on angiography Nonischemic cardiomyopathy - LVEF 20-25% on echocardiogram, function may be acutely worse status post cardiac arrest Sinus tachycardia - unclear etiology, possible infection as patient also with leukocytosis, on empiric antibiotics Seizures - on anti-epileptic medications per neurology Recommendations: -start metoprolol 25mg BID -will eventually need DANIEL inhibitor/ARB for systolic heart failure -no indication for aspirin or statin -ICD evaluation later in course of hospitalization depending on neurologic recovery Problems: Consultation Date/Type/Reason Admit Date/Time Dec 30, 2016 at 06:20 Initial Consult Date 12/30/16 Type of Consultation: Cardiology 24 HR Interval Summary Free Text/Dictation Rewarmed from hypothermia protocol. Off sedation, but unresponsive. Sinus tachycardia to the 130s, blood pressures stable. Detailed Summary Additional Comments Unable to obtain review of systems due to patient's altered mental status. Exam/Review of Systems Vital Signs Vitals Vital Signs Date Time Temp Pulse Resp B/P Pulse Ox O2 Delivery O2 Flow Rate FiO2 01/01/17 12:45 139 16 105/62 100 01/01/17 12:29 30 01/01/17 12:00 97.9 Mechanical Ventilator Intake and Output 12/31/16 12/31/16 01/01/17 15:00 23:00 07:00 Intake Total 1534.5 ml 1179.25 ml 1757.50 ml Output Total 1461 ml 854 ml 326 ml Balance 73.5 ml 325.25 ml 1431.50 ml Exam Constitutional: No alert, No distress Psych: No nl mood/affect Head: atraumatic, normocephalic Eyes: nl conjunctiva, nl lids ENMT: intubated Respiratory: clear to auscultation, No wheezing Cardiovascular: regular rate and rhythm, No murmurs/extra sounds Gastrointestinal: non-tender Musculoskeletal: nl extremities to inspection Extremities: No clubbing, No cyanosis, No edema Neurological: No nl mental status, No nl speech Results Result Diagram: 01/01/17 0400 01/01/17 0400 Results 24 hrs Laboratory Tests Test 12/31/16 15:55 12/31/16 18:50 12/31/16 23:00 01/01/17 04:00 White Blood Count 24.3 H 20.8 H Red Blood Count 4.44 3.93 L Hemoglobin 12.6 11.1 L Hematocrit 36.7 L 32.6 L Mean Corpuscular Volume 82.7 83.0 Mean Corpuscular Hemoglobin 28.4 L 28.2 L Mean Corpuscular Hemoglobin Concent 34.3 34.0 Red Cell Distribution Width 12.1 12.3 Platelet Count 199 213 Mean Platelet Volume 11.4 H 12.4 H Segmented Neutrophils % (Manual) 93 H 95 H Lymphocytes % (Manual) 3 L 2 L Monocytes % (Manual) 4 1 Nucleated Red Blood Cells % 0.0 0.0 Absolute Lymphocytes (Manual) 0.7 L 0.4 L Lymphocytes # 0.7 L 1.2 Monocytes # 1.0 H 1.0 H Absolute Monocytes (Manual) 0.9 0.2 L Sodium Level 129 L 125 L 130 L Potassium Level 3.4 L 4.7 3.6 Chloride Level 103 103 106 Carbon Dioxide Level 18 L 17 L 19 L Anion Gap 11 10 9 Blood Urea Nitrogen 3 L 3 L 4 L Creatinine 0.39 L 0.48 0.54 Glucose Level 146 98 # 84 Calcium Level 6.8 L 7.5 L 6.8 L Magnesium Level 1.9 1.8 Osmolality 260 L Vancomycin Level Trough 7.8 L Neutrophils % 88.9 H Band Neutrophils % (Manual) 1 Lymphocytes % 5.7 L Monocytes % 4.9 Eosinophils % 0.0 Eosinophils % (Manual) 1 Basophils % 0.1 Neutrophils # 18.5 H Neutrophils # (Manual) 19.8 H Band Neutrophils # 0.2 Eosinophils # 0.0 Basophils # 0.0 Nucleated Red Blood Cells # 0.0 Platelet Estimate NORMAL Polychromasia 1+ Poikilocytosis 3+ Anisocytosis 2+ Microcytosis 1+ Macrocytosis 1+ Test 01/01/17 04:30 01/01/17 06:00 Valproic Acid (Depakene) Level 33 L Blood Gas Specimen Source Blood arterial Arterial Blood Date Drawn 01/01/2017 5:20:33 AM Arterial Blood pH (Temp corrected) 7.441 Arterial Blood pCO2 (Temp correct) 25.0 L Arterial Blood pO2 (Temp corrected) 122.8 H Arterial Blood HCO3 16.6 L Arterial Blood Base Excess -5.9 L Arterial Blood Oxygen Saturation 98.5 H Virgilio Test ACCEPTAB Arterial Blood Gas Puncture Site Right Radial Arterial Blood Carboxyhemoglobin 0.3 Arterial Blood Methemoglobin 0.2 Blood Gas A-a O2 Differential 61.7 H Oxyhemoglobin Percent 98.0 Total Hemoglobin 12.4 Blood Gas Temperature 37.0 Blood Gas Respiration Rate 16.0 Blood Gas Actual Respiration Rate 16 Blood Gas Modality VENT - AC FiO2 30.0 Blood Gas Tidal Volume 500.0 Blood Gas Low PEEP Setting 5.0 Blood Gas Inspiratory Pressure 18.0 Blood Gas Notified Whom WF Blood Gas Notified Time 01/01/2017 5:35:49 AM Medications Medications Current Medications Morphine Sulfate (morphine) 2 mg Q2H PRN IV FOR NON CARDIAC PAIN (4-10); Start 12/30/16 at 06:30 Ondansetron HCl (Zofran Inj) 4 mg Q6H PRN IV NAUSEA AND/OR VOMITING; Start at 07:00 Lorazepam (Ativan) 1 mg Q2H PRN IV ANXIETY Last administered on 12/30/16 09:41 ; Admin Dose 1 MG; Start 12/30/16 at 07:00 Famotidine (Pepcid Iv) 20 mg DAILY IV Last administered on 01/01/17 08:46; Admin Dose 20 MG; Start 12/31/16 at 09:00 Acetaminophen (Tylenol Supp) 650 mg Q4H PRN [place] TEMP > 37C; Start 12/30/16 at 07 :00 Acetaminophen (Tylenol Liquid) 500 mg Q6H PO Last administered on 01/01/17 12: 57; Admin Dose 500 MG; Start 12/31/16 at 07:00 Meperidine HCl (Demerol) 12.5 mg Q4H PRN IV POST OPERATIVE SHIVERING; Start at 07:00 Meperidine HCl (Demerol) 25 mg Q4H PRN IV POST OPERATIVE SHIVERING; Start 12/30 at 07:00 Eye Lubricant (Akwa Oint) 1 applic Q6 BOTH EYES Last administered on 01/01/17 12:56; Admin Dose 1 APPLIC; Start 12/30/16 at 12:00 Eye Lubricant (Artificial Tears Oph) 2 drop Q6 BOTH EYES Last administered on 12:56; Admin Dose 2 DROP; Start 12/30/16 at 12:00 Lorazepam 2 mg 2 mg Q6H PRN IV seizure Last administered on 12/30/16 09:41; Admin Dose 2 MG; Start 12/30/16 at 07:30 Fentanyl 100 ml @ 2.5 mls/hr TITRATE IV Last administered on 12/30/16 23:01; Admin Dose 2.5 MLS/HR; Start 12/30/16 at 07:30 Midazolam HCl 50 ml @ 1 mls/hr TITRATE IV Last administered on 12/31/16 18:28 ; Admin Dose 7 MLS/HR; Start 12/30/16 at 08:00 Vecuronium [place]/Dextrose (Norcuron/D5W) 100 ml @ 3.13 mls/hr TITRATE IV Last administered on 12/30/16 09:45; Admin Dose 3.13 MLS/HR; Start 12/30/16 at 09:00 Miscellaneous Information 1 ea NOTE XX ; Start 12/30/16 at 09:00 Glucose (Glutose) 15 gm Q15M PRN PO DECREASED GLUCOSE; Start 12/30/16 at 09:00 Glucose (Glutose) 22.5 gm Q15M PRN PO DECREASED GLUCOSE; Start 12/30/16 at 09: 00 Dextrose (D50w Syringe) 25 ml Q15M PRN IV DECREASED GLUCOSE; Start 12/30/16 at 09:00 Dextrose (D50w Syringe) 50 ml Q15M PRN IV DECREASED GLUCOSE; Start 12/30/16 at 09:00 Glucagon (Glucagen) 1 mg Q15M PRN IM DECREASED GLUCOSE; Start 12/30/16 at 09:00 Glucose 15 gm 15 gm Q15M PRN BUCCAL DECREASED GLUCOSE; Start 12/30/16 at 09:00 Valproate Sodium 500 mg/Dextrose 55 ml @ 55 mls/hr Q8 IVPB Last administered on 01/01/17 05:35; Admin Dose 55 MLS/HR; Start 12/30/16 at 10:30 Levetiracetam 750 mg/Sodium Chloride 107.5 ml @ 430 mls/hr Q12 IVPB Last administered on 01/01/17 08:47; Admin Dose 430 MLS/HR; Start 12/30/16 at 12:30 Cefepime HCl 50 ml @ 100 mls/hr Q12 IVPB Last administered on 01/01/17 08:47 ; Admin Dose 100 MLS/HR; Start 12/30/16 at 21:00 Norepinephrine 250 ml @ 1.875 mls/ hr TITRATE IV Last administered on 02:33; Admin Dose 1.875 MLS/HR; Start 12/31/16 at 00:00; Stop 01/02/17 at 23:59 Sodium Chloride 1,000 ml @ 60 mls/hr [id number] IV Last administered on 08:47; Admin Dose 60 MLS/HR; Start 12/31/16 at 18:00 Vancomycin HCl (Vancocin) 250 ml @ 125 mls/hr Q8H IVPB Last administered on 12:55; Admin Dose 125 MLS/HR; Start 01/01/17 at 04:00 Miscellaneous Information (*Rx Drug Level Order Reminder*) VANCO TROUGH @ 0, 300 ON... ONCE ONCE XX ; Start 01/02/17 at 03:00; Stop 01/02/17 at 03:01 TARAS GARCIA MD Jan 01, 2017 13:54
[2017-01-01 14:47] LABS: CALCIUM 7.8 mg/dl (8.4-10.2); CREATININE 0.62 mg/dl (0.44-1.00); MAGNESIUM 2.2 mg/dl (1.7-2.5); POTASSIUM 4.3 mmol/L (3.5-5.1)
[2017-01-01] MEDS: METOPROLOL 25 MG TAB GTB SCH ×2 (15:26→21:05)
[2017-01-01] MEDS ORDERED: DESMOPRESSIN 4 MCG INJ IV SCH (17:30)
[2017-01-01 17:35] LABS: CALCIUM 7.7 mg/dl (8.4-10.2); CREATININE 0.62 mg/dl (0.44-1.00); POTASSIUM 4.1 mmol/L (3.5-5.1)
[2017-01-01] MEDS ORDERED: LEVALBUTEROL (NEB) 0.63 MG/3 ML AMP HHN PRN (21:30)
[2017-01-02] VITALS (79 sets, daily range): BP systolic 73–162; BP diastolic 34–113; PULSE 78–166; RESP 13–20
[2017-01-02] MEDS: VALPROATE INJ 500 MG in DEXTROSE 5% 50 ML IVPB SCH ×4 (00:04→18:30)
[2017-01-02] MEDS: ARTIFICIAL TEARS 15 ML OPH BOTH EYES SCH ×4 (00:05→17:03)
[2017-01-02] MEDS: OCULAR LUBRICANT 3.5 GM OPH OINT BOTH EYES SCH ×4 (00:05→17:03)
[2017-01-02] MEDS: ACETAMINOPHEN 650MG/20.3ML CUP PO SCH ×2 (01:00→06:55)
[2017-01-02] MEDS ORDERED: LORAZEPAM 2 MG INJ IV ONE (01:00)
--- NOTE | 2017-01-02 02:30 | RADRPT ---
PROCEDURE: MR Brain without contrast. CLINICAL INDICATION: Hypothermia and altered mental status. Prior cardiac arrest. TECHNIQUE: Sagittal and axial T1 weighted, axial T2 weighted, coronal GRE, axial diffusion weighte d with ADC mapping, and axial FLAIR imaging without contrast. COMPARISON: CT from 12/30/2016 FINDINGS: The study is markedly abnormal. There is extensive restricted diffusion throughout the cortex of bot h hemispheres with most severe involvement of the inferior frontal lobes and the occipital lobes. Th ere is also diffuse abnormal restricted diffusion involving the basal ganglia and thalami as well as the brainstem with evidence of downward herniation of the brainstem and cerebellar tonsils. There i s relative sparing of the cerebellum. There is no evidence for hemorrhage on the gradient images. Fl ow voids are seen in the internal carotid arteries, anterior and middle cerebral arteries, and the b asilar artery. Posterior cerebral artery flow voids are not well seen, likely obscured by cerebral e gabe. Mildly prominent lateral ventricles. The left lateral ventricle measures 1.1 cm in diameter. T here is minimal left to right midline shift. No definite intracranial mass or extraaxial fluid colle ction. Fluid is seen in the nasopharynx and nasogastric tube is partially seen. The orbits appear intact.. IMPRESSION: Probable extensive hypoxic brain injury given the history. Results were called to the patient's ICU nurse, at 01/02/2017 2:29:03 AM RPTAT: [facility] Physician Ras Date Time Electronically viewed and signed by Physician Ras on 01/02/2017 02:30 FINN/
[2017-01-02] MEDS ORDERED: METOPROLOL 5 MG INJ IV ONE ×2 (02:35→04:58)
[2017-01-02] MEDS: SOD CHLORIDE 0.9% 1,000 ML IV SCH (03:20)
[2017-01-02 03:29] LABS: ABNORMAL IP MESSAGE 1; BASOPHILS % 0.1 % (0.0-2.0); HEMATOCRIT 35.7 % (37.0-47.0); HEMOGLOBIN 12.1 g/dl (12.0-16.0); LYMPHOCYTES # 0.5 10^3/ul (0.8-2.9); LYMPHOCYTES % 2.5 % (15.0-51.0); MEAN CORPUSCULAR HEMOGLOBIN 28.2 pg (29.0-33.0); MEAN CORPUSCULAR HGB CONC 33.9 g/dl (32.0-37.0); MEAN CORPUSCULAR VOLUME 83.2 fl (82.0-101.0); MEAN PLATELET VOLUME 11.3 fl (7.4-10.4); MONOCYTE # 1.1 10^3/ul (0.3-0.9); MONOCYTES % 4.9 % (0.0-11.0); NEUTROPHIL # 20.2 10^3/ul (1.6-7.5); NEUTROPHILS % 91.7 % (39.0-77.0); PLATELET COUNT 249 10^3/UL (140-415); RED BLOOD COUNT 4.29 10^6/ul (4.20-5.40); RED CELL DISTRIBUTION WIDTH 12.9 % (11.5-14.5)
[2017-01-02 03:37] LABS: POSITIVE DIFF @See below
[2017-01-02 04:05] LABS: CALCIUM 7.9 mg/dl (8.4-10.2); CREATININE 0.62 mg/dl (0.44-1.00); MAGNESIUM 2.1 mg/dl (1.7-2.5); PHOSPHORUS 2.1 mg/dl (2.5-4.9); POTASSIUM 3.9 mmol/L (3.5-5.1)
[2017-01-02] MEDS ORDERED: DESMOPRESSIN 4 MCG INJ IV ONE (04:57)
[2017-01-02] MEDS ORDERED: SOD CHLORIDE 0.45% 1,000 ML IV SCH (05:00)
[2017-01-02] MEDS: VANCOMYCIN 1 GM in NS 250 ML IVPB SCH (05:18)
--- NOTE | 2017-01-02 05:32 | EN ---
Date/Time of Note Date/Time of Note DATE: 01/02/17 TIME: 05:28 Event Note Medicine Medicine Event Note Was notified by the nurse that she had received a call back from the radiologist regarding the MRI findings. There was concern for herniation as well as diffuse anoxic brain injury. I discussed the case with the on-call neurosurgeon Dr. oliveira at approximately 3 AM. As the patient's neurological exam was that the patient was unresponsive and had fixed pupils based on the neurologist's examination findings, the neurosurgeon wanted to have the neurologist be contacted to see whether this patient would be a candidate for surgical intervention at this time as patient's prognosis appears very poor based on her clinical exam findings and MRI results. Call and text was placed to the neurologist Dr. Reed as well as the neurology answering service, awaiting a call back from the correctional lieutenant neurologist. SANDOVAL AMBROSE Jan 02, 2017 05:32
[2017-01-02] MEDS: DEXTROSE 5% 1,000 ML IV SCH ×3 (06:55→22:36)
[2017-01-02] MEDS ORDERED: POTASSIUM PHOSPHATE 20 MEQ in SOD CHLORIDE 0.9% 250 ML IVPB ONE (07:30)
[2017-01-02] MEDS: CEFEPIME 1GM/50 ML (PMX) 50 ML IVPB SCH ×2 (08:46→20:41)
[2017-01-02] MEDS: METOPROLOL 25 MG TAB GTB SCH ×2 (08:46→20:45)
[2017-01-02] MEDS: LEVETIRACETAM IV 750 MG in SOD CHLORIDE 0.9% 100 ML IVPB SCH (08:47)
[2017-01-02] MEDS: DESMOPRESSIN 4 MCG INJ IV SCH ×2 (09:03→20:36)
[2017-01-02] MEDS: FAMOTIDINE 20 MG INJ IV SCH (09:14)
--- NOTE | 2017-01-02 09:16 | PN ---
DATE: 01/02/2017 SUBJECTIVE DATA: The patient is noted to have significant polyuria over the last 18 hours with urinary output greater than 6 L. 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 MRI of the brain shows extensive hypoxic brain injury as well as evidence of downward herniation of brainstem and cerebral tonsils. No other acute events noted overnight. No hemoptysis, hematemesis, hematochezia. OBJECTIVE DATA: VITAL SIGNS: Blood pressure 131/87, respirations 16, pulse 117, temperature 99.7. HEENT: Head is normocephalic. NECK: Supple. HEART: Regular rate. LUNGS: Diminished breath sounds at the base. ABDOMEN: Soft, nontender to palpation. No guarding. EXTREMITIES: Negative for clubbing, cyanosis. No edema. DERMATOLOGIC: No rashes. MUSCULOSKELETAL: No joint effusion. NEUROLOGIC: The patient is obtunded. LABORATORY AND DIAGNOSTIC DATA: Laboratory data shows white count 22, hemoglobin 12.1, hematocrit 5.7, platelet count is 249. Sodium 148, potassium 3.9, chloride 111, BUN 5, creatinine 0.62. Phosphorous 2.1. ASSESSMENT AND PLAN: 1. Diabetes insipidus. Patient over the last 18 hours has had significant polyuria with urinary output greater than 6 L. This is likely secondary to acute anoxic injury. The patient currently is on DDAVP. We will increase the dose to 4 mcg b.i.d. The patient will be placed on D5 water. We will monitor serum sodium levels every 6 hours with attempts to maintain normal natremia. We will monitor closely. 2. Hypophosphatemia. Replete with potassium phosphate. 3. Status post cardiac arrest. Etiology is unknown. Continue to monitor. 4. Severe anoxic brain injury. The patient's MRI reveals cerebral edema with possible impending herniation. Neurology and Neurosurgery is aware. Continue to monitor closely. 5. Seizures. Continue current anti-epileptic medication. 6. Leukocytosis/systemic inflammatory response syndrome. Continue antibiotic therapy. Monitor. 7. Ventilatory-dependent respiratory failure. Vent settings and ABGs have been reviewed. 8. Recent history of weight loss. Dictated By: Ag Lewis DO /guillaume/marion /Document#: [id number]
[2017-01-02] MEDS: NORepinephrine 8MG/250 ML (PMX 250 ML IV SCH ×2 (10:09→21:28)
--- NOTE | 2017-01-02 11:56 | PN ---
Date/Time of Note Date/Time of Note DATE: 01/02/17 TIME: 11:42 Assessment/Plan VTE Prophylaxis VTE Prophylaxis Intervention: SCD's Lines/Catheters [facility] Central Line Central line still needed: Yes Urinary Cath still in place: Yes Reason Cath still needed: other (indicate) Assessment/Plan Assessment/Plan 1. Anoxic brain injury - MRI revealed extensive restricted diffusion throughout the cortex of both hemispheres with most severe involvement of the inferior frontal lobes and the occipital lobes. There is also diffuse abnormal restricted diffusion involving the basal ganglia and thalami as well as the brainstem with evidence of downward herniation of the brainstem and cerebellar tonsils. There is relative sparing of the cerebellum. There is no evidence for hemorrhage on the gradient images. Flow voids are seen in the internal carotid arteries, anterior and middle cerebral arteries, and the basilar artery. - Neurology on board and consultation greatly appreciated. Awaiting results of EEG to see if any brain activity present 2. Acute respiratory failure s/p Cardiac arrest - Still remains intubated and unresponsive - Unknown etiology. She was taken to clinical laboratory manager and found to have clean coronaries with EF 20% - Cardiology on board and recommendations appreciated. 3. New onset seizures - Will continue on antiepileptics - no further episodes of seizures 4. Abdominal pain/weight loss/menstrual abnormalities - With present evidence of anoxic brain damage, will not pursue workup at this time 5. Diabetes insipidus - Nephrology on board and recommendations appreciated - Patient currently on DDAVP and urine output normalizing - labs q6 to monitor electrolytes 6. Leukocytosis- still elevated - Unknown source. Currently receiving broad spectrum Vanc and Cefepime 7. Hypokalemia, resolved. Continue to observe. >30 minutes of critical care time was spent with patient. Family currently at bedside and questions answered Subjective 24 Hr Interval Summary Free Text/Dictation Patient still intubated and remains unresponsive. Her urine output has been normalizing since started on DDAVP. MRI performed last night showed anoxic brain injury with herniation of brainstem. Exam this am consistent with findings and family at bedside told about results. Contacted Neurology and will await EEG and examination for confirmatory brain . Exam/Review of Systems Vital Signs Vitals Vital Signs Date Time Temp Pulse Resp B/P Pulse Ox O2 Delivery O2 Flow Rate FiO2 01/02/17 09:54 132 16 100 30 01/02/17 08:00 99.6 135/95 Mechanical Ventilator Intake and Output 01/01/17 01/01/17 01/02/17 15:00 23:00 07:00 Intake Total 1217.5 ml 1120 ml 780 ml Output Total 3637 ml 875 ml 1849 ml Balance -2419.5 ml 245 ml -1069 ml Exam General: Intubated on mechanical ventilation, nonresponsive CVS: Regular rhythm, tachycardic. no murmurs Lungs: diminished breath sounds, no crackles, or wheezes Abdomen: Soft , nontender, nondistended , bowel sounds are present. No guarding no rebound tenderness Extremities: Normal to inspection, no edema no cyanosis Neuro: pupils nonreactive b/l. no gag reflex elicited, no response to stimuli Results Result Diagram: 01/02/17 0321 01/02/17 0321 Results 24 hrs Laboratory Tests Test 01/01/17 13:50 01/01/17 16:25 01/01/17 17:00 01/02/17 03:21 Sodium Level 142 144 148 H Potassium Level 4.3 4.1 3.9 Chloride Level 117 H 118 H 118 H Carbon Dioxide Level 22 21 24 Anion Gap 7 L 9 10 Blood Urea Nitrogen 6 L 6 L 5 L Creatinine 0.62 0.62 0.62 Glucose Level 97 110 116 Calcium Level 7.8 L 7.7 L 7.9 L Magnesium Level 2.2 2.1 Urine Osmolality 294 Urine Random Sodium 73 White Blood Count 22.0 H Red Blood Count 4.29 Hemoglobin 12.1 Hematocrit 35.7 L Mean Corpuscular Volume 83.2 Mean Corpuscular Hemoglobin 28.2 L Mean Corpuscular Hemoglobin Concent 33.9 Red Cell Distribution Width 12.9 Platelet Count 249 Mean Platelet Volume 11.3 H Neutrophils % 91.7 H Lymphocytes % 2.5 L Monocytes % 4.9 Eosinophils % 0.0 Basophils % 0.1 Nucleated Red Blood Cells % 0.0 Neutrophils # 20.2 H Lymphocytes # 0.5 L Monocytes # 1.1 H Eosinophils # 0.0 Basophils # 0.0 Nucleated Red Blood Cells # 0.0 Phosphorus Level 2.1 L Vancomycin Level Trough 9.0 L Medications Medications Current Medications Morphine Sulfate (morphine) 2 mg Q2H PRN IV FOR NON CARDIAC PAIN (4-10) Last administered on 01/01/17t 23:48; Admin Dose 2 MG; Start 12/30/16 at 06:30 Ondansetron HCl (Zofran Inj) 4 mg Q6H PRN IV NAUSEA AND/OR VOMITING; Start at 07:00 Lorazepam (Ativan) 1 mg Q2H PRN IV ANXIETY Last administered on 12/30/16 09:41 ; Admin Dose 1 MG; Start 12/30/16 at 07:00 Famotidine (Pepcid Iv) 20 mg DAILY IV Last administered on 01/02/17 09:14; Admin Dose 20 MG; Start 12/31/16 at 09:00 Acetaminophen (Tylenol Supp) 650 mg Q4H PRN [place] TEMP > 37C Last administered on 01/01/17 23:48; Admin Dose 650 MG; Start 12/30/16 at 07:00 Acetaminophen (Tylenol Liquid) 500 mg Q6H PO Last administered on 01/01/17 17: 50; Admin Dose 500 MG; Start 12/31/16 at 07:00 Meperidine HCl (Demerol) 12.5 mg Q4H PRN IV POST OPERATIVE SHIVERING; Start at 07:00 Meperidine HCl (Demerol) 25 mg Q4H PRN IV POST OPERATIVE SHIVERING; Start 12/30 at 07:00 Eye Lubricant (Akwa Oint) 1 applic Q6 BOTH EYES Last administered on 01/02/17 05:19; Admin Dose 1 APPLIC; Start 12/30/16 at 12:00 Eye Lubricant (Artificial Tears Oph) 2 drop Q6 BOTH EYES Last administered on 05:19; Admin Dose 2 DROP; Start 12/30/16 at 12:00 Lorazepam 2 mg 2 mg Q6H PRN IV seizure Last administered on 12/30/16 09:41; Admin Dose 2 MG; Start 12/30/16 at 07:30 Fentanyl 100 ml @ 2.5 mls/hr TITRATE IV Last administered on 12/30/16 23:01; Admin Dose 2.5 MLS/HR; Start 12/30/16 at 07:30 Midazolam HCl 50 ml @ 1 mls/hr TITRATE IV Last administered on 12/31/16 18:28 ; Admin Dose 7 MLS/HR; Start 12/30/16 at 08:00 Vecuronium [place]/Dextrose (Norcuron/D5W) 100 ml @ 3.13 mls/hr TITRATE IV Last administered on 12/30/16 09:45; Admin Dose 3.13 MLS/HR; Start 12/30/16 at 09:00 Miscellaneous Information 1 ea NOTE XX ; Start 12/30/16 at 09:00 Glucose (Glutose) 15 gm Q15M PRN PO DECREASED GLUCOSE; Start 12/30/16 at 09:00 Glucose (Glutose) 22.5 gm Q15M PRN PO DECREASED GLUCOSE; Start 12/30/16 at 09: 00 Dextrose (D50w Syringe) 25 ml Q15M PRN IV DECREASED GLUCOSE; Start 12/30/16 at 09:00 Dextrose (D50w Syringe) 50 ml Q15M PRN IV DECREASED GLUCOSE; Start 12/30/16 at 09:00 Glucagon (Glucagen) 1 mg Q15M PRN IM DECREASED GLUCOSE; Start 12/30/16 at 09:00 Glucose 15 gm 15 gm Q15M PRN BUCCAL DECREASED GLUCOSE; Start 12/30/16 at 09:00 Valproate Sodium 500 mg/Dextrose 55 ml @ 55 mls/hr Q8 IVPB Last administered on 01/02/17 05:17; Admin Dose 55 MLS/HR; Start 12/30/16 at 10:30 Levetiracetam 750 mg/Sodium Chloride 107.5 ml @ 430 mls/hr Q12 IVPB Last administered on 01/02/17 08:47; Admin Dose 430 MLS/HR; Start 12/30/16 at 12:30 Cefepime HCl 50 ml @ 100 mls/hr Q12 IVPB Last administered on 01/02/17 08:46 ; Admin Dose 100 MLS/HR; Start 12/30/16 at 21:00 Norepinephrine (Levophed) 250 ml @ 1.875 mls/ hr TITRATE IV Last administered on 01/02/17 10:09; Admin Dose 3.75 MLS/HR; Start 12/31/16 at 00:00; Stop at 23:59 Metoprolol Tartrate 25 mg 25 mg BID GTB Last administered on 01/02/17 08:46; Admin Dose 25 MG; Start 01/01/17 at 14:00 Dextrose (D5W) 1,000 ml @ 100 mls/hr Q10H IV Last administered on 01/02/17 06 :55; Admin Dose 100 MLS/HR; Start 01/02/17 at 07:00 Desmopressin Acetate 4 mcg 4 mcg BID IV Last administered on 01/02/17 09:03; Admin Dose 4 MCG; Start 01/02/17 at 09:00 Vancomycin HCl/ Sodium Chloride (Vancocin/NS) 250 ml @ 83.333 mls/ hr Q8H IVPB ; Start 01/02/17 at 13:00 SHERLY GERARDO MD Jan 02, 2017 11:55
[2017-01-02] MEDS: VANCOMYCIN 1.25 GM in SOD CHLORIDE 0.9% 250 ML IVPB SCH ×2 (13:16→20:36)
--- NOTE | 2017-01-02 15:26 | PRO ---
DATE OF PROCEDURE: 01/02/2017 PROCEDURE PERFORMED: EEG. HISTORY: This is a 26-year-old woman who was admitted following cardiorespiratory arrest requiring resuscitation. CURRENT MEDICATIONS: 1. Ativan. 2. Keppra. PROCEDURE: Utilizing a 16 channel EEG machine cap scalp electrodes were applied in accordance with the International 10/20 system. Scalp to scalp, scalp to ear montages were displayed. Electrical impedances were measured and reported. DESCRIPTION: During a resting state, a posterior dominant rhythm of about 3-4 hertz seen bihemispheric distribution with periodic epileptiform activity in bihemispheric distribution. INTERPRETATION: This is an abnormal EEG due to bihemispheric background slowing with periodic lateralizing epileptiform activity in bihemispheric distribution consistent with encephalopathy with seizure activity. Please correlate these findings with the patient's clinical picture. Dictated By: Myriam Friend MD /guillaume/traci /Document#: [id number]
--- NOTE | 2017-01-02 15:39 | CONS ---
Date/Time of Note Date/Time of Note DATE: 01/02/17 TIME: 15:37 Consult Date/Type/Reason Admit Date/Time Dec 30, 2016 at 06:20 Initial Consult Date 12/30/16 Type of Consultation: Pulm Subjective Patient remains somnolent on mechanical ventilation. Pupils fixed and dilated, there is no gag reflex, she is not breathing above the set ventilator rate. Objective Vital Signs Date Time Temp Pulse Resp B/P Pulse Ox O2 Delivery O2 Flow Rate FiO2 01/02/17 15:14 82 16 100 30 01/02/17 11:45 114/72 Mechanical Ventilator 01/02/17 08:00 99.6 Intake and Output 01/01/17 01/01/17 01/02/17 15:00 23:00 07:00 Intake Total 1217.5 ml 1120 ml 790 ml Output Total 3637 ml 875 ml 1849 ml Balance -2419.5 ml 245 ml -1059 ml Exam HEENT dry mucous membranes pupils Fixed and dilated. Cardiac exam S1-S2 Respiratory clear to auscultation bilaterally no rales wheezes Abdomen soft nontender no guarding rebound Extremities no cyanosis clubbing or edema Neurologically unable to assess Results/Medications Result Diagram: 01/02/17 0321 01/02/17 1345 Results 24 hrs Laboratory Tests Test 01/01/17 16:25 01/01/17 17:00 01/02/17 03:21 01/02/17 13:45 Urine Osmolality 294 Urine Random Sodium 73 Sodium Level 144 148 H 144 Potassium Level 4.1 3.9 Chloride Level 118 H 118 H Carbon Dioxide Level 21 24 Anion Gap 9 10 Blood Urea Nitrogen 6 L 5 L Creatinine 0.62 0.62 Glucose Level 110 116 Calcium Level 7.7 L 7.9 L White Blood Count 22.0 H Red Blood Count 4.29 Hemoglobin 12.1 Hematocrit 35.7 L Mean Corpuscular Volume 83.2 Mean Corpuscular Hemoglobin 28.2 L Mean Corpuscular Hemoglobin Concent 33.9 Red Cell Distribution Width 12.9 Platelet Count 249 Mean Platelet Volume 11.3 H Neutrophils % 91.7 H Lymphocytes % 2.5 L Monocytes % 4.9 Eosinophils % 0.0 Basophils % 0.1 Nucleated Red Blood Cells % 0.0 Neutrophils # 20.2 H Lymphocytes # 0.5 L Monocytes # 1.1 H Eosinophils # 0.0 Basophils # 0.0 Nucleated Red Blood Cells # 0.0 Phosphorus Level 2.1 L Magnesium Level 2.1 Vancomycin Level Trough 9.0 L Medications Current Medications Morphine Sulfate (morphine) 2 mg Q2H PRN IV FOR NON CARDIAC PAIN (4-10) Last administered on 01/01/17 23:48; Admin Dose 2 MG; Start 12/30/16 at 06:30 Ondansetron HCl (Zofran Inj) 4 mg Q6H PRN IV NAUSEA AND/OR VOMITING; Start at 07:00 Lorazepam (Ativan) 1 mg Q2H PRN IV ANXIETY Last administered on 12/30/16 09:41 ; Admin Dose 1 MG; Start 12/30/16 at 07:00 Famotidine (Pepcid Iv) 20 mg DAILY IV Last administered on 01/02/17 09:14; Admin Dose 20 MG; Start 12/31/16 at 09:00 Acetaminophen (Tylenol Supp) 650 mg Q4H PRN [place] TEMP > 37C Last administered on 01/01/17 23:48; Admin Dose 650 MG; Start 12/30/16 at 07:00 Meperidine HCl (Demerol) 12.5 mg Q4H PRN IV POST OPERATIVE SHIVERING; Start at 07:00 Meperidine HCl (Demerol) 25 mg Q4H PRN IV POST OPERATIVE SHIVERING; Start 12/30 at 07:00 Eye Lubricant (Akwa Oint) 1 applic Q6 BOTH EYES Last administered on 01/02/17 13:17; Admin Dose 1 APPLIC; Start 12/30/16 at 12:00 Eye Lubricant (Artificial Tears Oph) 2 drop Q6 BOTH EYES Last administered on 13:17; Admin Dose 2 DROP; Start 12/30/16 at 12:00 Lorazepam 2 mg 2 mg Q6H PRN IV seizure Last administered on 12/30/16 09:41; Admin Dose 2 MG; Start 12/30/16 at 07:30 Fentanyl 100 ml @ 2.5 mls/hr TITRATE IV Last administered on 12/30/16 23:01; Admin Dose 2.5 MLS/HR; Start 12/30/16 at 07:30 Midazolam HCl 50 ml @ 1 mls/hr TITRATE IV Last administered on 12/31/16 18:28 ; Admin Dose 7 MLS/HR; Start 12/30/16 at 08:00 Vecuronium [place]/Dextrose (Norcuron/D5W) 100 ml @ 3.13 mls/hr TITRATE IV Last administered on 12/30/16 09:45; Admin Dose 3.13 MLS/HR; Start 12/30/16 at 09:00 Miscellaneous Information 1 ea NOTE XX ; Start 12/30/16 at 09:00 Glucose (Glutose) 15 gm Q15M PRN PO DECREASED GLUCOSE; Start 12/30/16 at 09:00 Glucose (Glutose) 22.5 gm Q15M PRN PO DECREASED GLUCOSE; Start 12/30/16 at 09: 00 Dextrose (D50w Syringe) 25 ml Q15M PRN IV DECREASED GLUCOSE; Start 12/30/16 at 09:00 Dextrose (D50w Syringe) 50 ml Q15M PRN IV DECREASED GLUCOSE; Start 12/30/16 at 09:00 Glucagon (Glucagen) 1 mg Q15M PRN IM DECREASED GLUCOSE; Start 12/30/16 at 09:00 Glucose 15 gm 15 gm Q15M PRN BUCCAL DECREASED GLUCOSE; Start 12/30/16 at 09:00 Valproate Sodium 500 mg/Dextrose 55 ml @ 55 mls/hr Q8 IVPB Last administered on 01/02/17 13:16; Admin Dose 55 MLS/HR; Start 12/30/16 at 10:30 Levetiracetam 750 mg/Sodium Chloride 107.5 ml @ 430 mls/hr Q12 IVPB Last administered on 01/02/17 08:47; Admin Dose 430 MLS/HR; Start 12/30/16 at 12:30 Cefepime HCl 50 ml @ 100 mls/hr Q12 IVPB Last administered on 01/02/17 08:46 ; Admin Dose 100 MLS/HR; Start 12/30/16 at 21:00 Norepinephrine (Levophed) 250 ml @ 1.875 mls/ hr TITRATE IV Last administered on 01/02/17 10:09; Admin Dose 3.75 MLS/HR; Start 12/31/16 at 00:00; Stop at 23:59 Metoprolol Tartrate 25 mg 25 mg BID GTB Last administered on 01/02/17 08:46; Admin Dose 25 MG; Start 01/01/17 at 14:00 Dextrose (D5W) 1,000 ml @ 100 mls/hr Q10H IV Last administered on 01/02/17 06 :55; Admin Dose 100 MLS/HR; Start 01/02/17 at 07:00 Desmopressin Acetate 4 mcg 4 mcg BID IV Last administered on 01/02/17 09:03; Admin Dose 4 MCG; Start 01/02/17 at 09:00 Vancomycin HCl/ Sodium Chloride (Vancocin/NS) 250 ml @ 83.333 mls/ hr Q8H IVPB Last administered on 01/02/17 13:16; Admin Dose 83.333 MLS/HR; Start at 13:00 Assessment/Plan Chief Complaint/Hosp Course Assessment 1. Status post cardiopulmonary arrest followed by hypothermia protocol.Clinical exam this morning consistent with brain . MRI findings demonstrate herniation. 2. No evidence of aspiration pneumonia on chest x-ray 3. Respiratory failure secondary to above 4. Possible underlying arrhythmia as cause of cardiac arrest. Plan 1. I had a long discussion with patient's family at bedside. Explained very poor prognosis. Explained possibility of severe brain injury. Pending EEG and neurology recommendations. 2. Continue current ventilation 3. Continue postoperative antibiotic coverage 4. Continue cardiac recommendations 35 minutes of critical care, discussed with family at bedside Problems: JAIRO GARCIA MD, [facility] Jan 02, 2017 15:39
--- NOTE | 2017-01-02 15:56 | CONS ---
Date/Time of Note Date/Time of Note DATE: 01/02/17 TIME: 15:42 Assessment/Plan Assessment/Plan Chief Complaint/Hosp Course Cardiorespiratory arrest Problems: Additional Assessment/Plan 26 yo female w recent unintentional weight loss, hypokalemia (K: 2.7) admitted cardiac arrest with post arrest cardiomyopathy currently being treated with hypothermia protocol on VPA, Keppra and Versed drip for seizures. MRI of brain is markedly abnormal, extensive restricted diffusion throughout the cortex of both hemispheres with most severe involvement of the inferior frontal lobes and the occipital lobes, basal ganglia and thalami as well as the brainstem with evidence of downward herniation of the brainstem and cerebellar tonsils, mild prominent lateral ventricles, minimal left to right midline shift. Suggesting extensive hypoxic brain injury. EEG showed periodic lateralizing epeleptriform activity consistent with seizure activity. Plan: -Increase keppra 1500 mg IV bid -check VPA levels -Discussed with patient's , brother and mother who are present in room -Prognosis poor -will continue to follow Consultation Date/Type/Reason Admit Date/Time Dec 30, 2016 at 06:20 Initial Consult Date 12/30/16 Type of Consultation: Neurology Reason for Consultation Cardiorespiratory arraest 24 HR Interval Summary Free Text/Dictation Clinically unchanged. MRI of brain is markedly abnormal, extensive restricted diffusion throughout the cortex of both hemispheres with most severe involvement of the inferior frontal lobes and the occipital lobes, basal ganglia and thalami as well as the brainstem with evidence of downward herniation of the brainstem and cerebellar tonsils, mild prominent lateral ventricles, minimal left to right midline shift. Suggesting extensive hypoxic brain injury. Exam/Review of Systems Vital Signs Vitals Vital Signs Date Time Temp Pulse Resp B/P Pulse Ox O2 Delivery O2 Flow Rate FiO2 01/02/17 15:14 82 16 100 30 01/02/17 11:45 114/72 Mechanical Ventilator 01/02/17 08:00 99.6 Intake and Output 01/01/17 01/01/17 01/02/17 15:00 23:00 07:00 Intake Total 1217.5 ml 1120 ml 790 ml Output Total 3637 ml 875 ml 1849 ml Balance -2419.5 ml 245 ml -1059 ml Exam Neurological: other (Unresponsive, dilated pupils, absent corneals, dolls eyes and gaga reflexes, no withdrwl to noxious stimuli) Results Result Diagram: 01/02/17 0321 01/02/17 1345 Results 24 hrs Laboratory Tests Test 01/01/17 16:25 01/01/17 17:00 01/02/17 03:21 01/02/17 13:45 Urine Osmolality 294 Urine Random Sodium 73 Sodium Level 144 148 H 144 Potassium Level 4.1 3.9 Chloride Level 118 H 118 H Carbon Dioxide Level 21 24 Anion Gap 9 10 Blood Urea Nitrogen 6 L 5 L Creatinine 0.62 0.62 Glucose Level 110 116 Calcium Level 7.7 L 7.9 L White Blood Count 22.0 H Red Blood Count 4.29 Hemoglobin 12.1 Hematocrit 35.7 L Mean Corpuscular Volume 83.2 Mean Corpuscular Hemoglobin 28.2 L Mean Corpuscular Hemoglobin Concent 33.9 Red Cell Distribution Width 12.9 Platelet Count 249 Mean Platelet Volume 11.3 H Neutrophils % 91.7 H Lymphocytes % 2.5 L Monocytes % 4.9 Eosinophils % 0.0 Basophils % 0.1 Nucleated Red Blood Cells % 0.0 Neutrophils # 20.2 H Lymphocytes # 0.5 L Monocytes # 1.1 H Eosinophils # 0.0 Basophils # 0.0 Nucleated Red Blood Cells # 0.0 Phosphorus Level 2.1 L Magnesium Level 2.1 Vancomycin Level Trough 9.0 L Medications Medications Current Medications Morphine Sulfate (morphine) 2 mg Q2H PRN IV FOR NON CARDIAC PAIN (4-10) Last administered on 01/01/17 23:48; Admin Dose 2 MG; Start 12/30/16 at 06:30 Ondansetron HCl (Zofran Inj) 4 mg Q6H PRN IV NAUSEA AND/OR VOMITING; Start at 07:00 Lorazepam (Ativan) 1 mg Q2H PRN IV ANXIETY Last administered on 12/30/16 09:41 ; Admin Dose 1 MG; Start 12/30/16 at 07:00 Famotidine (Pepcid Iv) 20 mg DAILY IV Last administered on 01/02/17 09:14; Admin Dose 20 MG; Start 12/31/16 at 09:00 Acetaminophen (Tylenol Supp) 650 mg Q4H PRN [place] TEMP > 37C Last administered on 01/01/17 23:48; Admin Dose 650 MG; Start 12/30/16 at 07:00 Meperidine HCl (Demerol) 12.5 mg Q4H PRN IV POST OPERATIVE SHIVERING; Start at 07:00 Meperidine HCl (Demerol) 25 mg Q4H PRN IV POST OPERATIVE SHIVERING; Start 12/30 at 07:00 Eye Lubricant (Akwa Oint) 1 applic Q6 BOTH EYES Last administered on 01/02/17 13:17; Admin Dose 1 APPLIC; Start 12/30/16 at 12:00 Eye Lubricant (Artificial Tears Oph) 2 drop Q6 BOTH EYES Last administered on 13:17; Admin Dose 2 DROP; Start 12/30/16 at 12:00 Lorazepam 2 mg 2 mg Q6H PRN IV seizure Last administered on 12/30/16 09:41; Admin Dose 2 MG; Start 12/30/16 at 07:30 Fentanyl 100 ml @ 2.5 mls/hr TITRATE IV Last administered on 12/30/16 23:01; Admin Dose 2.5 MLS/HR; Start 12/30/16 at 07:30 Midazolam HCl 50 ml @ 1 mls/hr TITRATE IV Last administered on 12/31/16 18:28 ; Admin Dose 7 MLS/HR; Start 12/30/16 at 08:00 Vecuronium [place]/Dextrose (Norcuron/D5W) 100 ml @ 3.13 mls/hr TITRATE IV Last administered on 12/30/16 09:45; Admin Dose 3.13 MLS/HR; Start 12/30/16 at 09:00 Miscellaneous Information 1 ea NOTE XX ; Start 12/30/16 at 09:00 Glucose (Glutose) 15 gm Q15M PRN PO DECREASED GLUCOSE; Start 12/30/16 at 09:00 Glucose (Glutose) 22.5 gm Q15M PRN PO DECREASED GLUCOSE; Start 12/30/16 at 09: 00 Dextrose (D50w Syringe) 25 ml Q15M PRN IV DECREASED GLUCOSE; Start 12/30/16 at 09:00 Dextrose (D50w Syringe) 50 ml Q15M PRN IV DECREASED GLUCOSE; Start 12/30/16 at 09:00 Glucagon (Glucagen) 1 mg Q15M PRN IM DECREASED GLUCOSE; Start 12/30/16 at 09:00 Glucose 15 gm 15 gm Q15M PRN BUCCAL DECREASED GLUCOSE; Start 12/30/16 at 09:00 Valproate Sodium 500 mg/Dextrose 55 ml @ 55 mls/hr Q8 IVPB Last administered on 01/02/17 13:16; Admin Dose 55 MLS/HR; Start 12/30/16 at 10:30 Levetiracetam 750 mg/Sodium Chloride 107.5 ml @ 430 mls/hr Q12 IVPB Last administered on 01/02/17 08:47; Admin Dose 430 MLS/HR; Start 12/30/16 at 12:30 Cefepime HCl 50 ml @ 100 mls/hr Q12 IVPB Last administered on 01/02/17 08:46 ; Admin Dose 100 MLS/HR; Start 12/30/16 at 21:00 Norepinephrine (Levophed) 250 ml @ 1.875 mls/ hr TITRATE IV Last administered on 01/02/17 10:09; Admin Dose 3.75 MLS/HR; Start 12/31/16 at 00:00; Stop at 23:59 Metoprolol Tartrate 25 mg 25 mg BID GTB Last administered on 01/02/17 08:46; Admin Dose 25 MG; Start 01/01/17 at 14:00 Dextrose (D5W) 1,000 ml @ 100 mls/hr Q10H IV Last administered on 01/02/17 06 :55; Admin Dose 100 MLS/HR; Start 01/02/17 at 07:00 Desmopressin Acetate 4 mcg 4 mcg BID IV Last administered on 01/02/17 09:03; Admin Dose 4 MCG; Start 01/02/17 at 09:00 Vancomycin HCl/ Sodium Chloride (Vancocin/NS) 250 ml @ 83.333 mls/ hr Q8H IVPB Last administered on 01/02/17 13:16; Admin Dose 83.333 MLS/HR; Start at 13:00 Procedures Procedures 01/02/17 PROCEDURE: MR Brain without contrast. CLINICAL INDICATION: Hypothermia and altered mental status. Prior cardiac arrest. TECHNIQUE: Sagittal and axial T1 weighted, axial T2 weighted, coronal GRE, axial diffusion weighted with ADC mapping, and axial FLAIR imaging without contrast. COMPARISON: CT from 12/30/2016 FINDINGS: The study is markedly abnormal. There is extensive restricted diffusion throughout the cortex of both hemispheres with most severe involvement of the inferior frontal lobes and the occipital lobes. There is also diffuse abnormal restricted diffusion involving the basal ganglia and thalami as well as the brainstem with evidence of downward herniation of the brainstem and cerebellar tonsils. There is relative sparing of the cerebellum. There is no evidence for hemorrhage on the gradient images. Flow voids are seen in the internal carotid arteries, anterior and middle cerebral arteries, and the basilar artery. Posterior cerebral artery flow voids are not well seen, likely obscured by cerebral edema. Mildly prominent lateral ventricles. The left lateral ventricle measures 1.1 cm in diameter. There is minimal left to right midline shift. No definite intracranial mass or extraaxial fluid collection. Fluid is seen in the nasopharynx and nasogastric tube is partially seen. The orbits appear intact.. IMPRESSION: Probable extensive hypoxic brain injury given the history. Results were called to the patient's ICU nurse, at 01/02/2017 2:29:03 AM RPTAT: [facility] Physician Ras Date Time Electronically viewed and signed by Kiki Oshea Physician on 01/02/2017 02 :30 REBECCA CHILDERS MD Jan 02, 2017 15:53
[2017-01-02] MEDS: LEVETIRACETAM 1500 MG (PMX) 100 ML IVPB SCH (20:36)
[2017-01-02] MEDS ORDERED: LEVETIRACETAM IV 1,500 MG in SOD CHLORIDE 0.9% 100 ML IVPB SCH (21:00)
[2017-01-03] VITALS (92 sets, daily range): BP systolic 79–151; BP diastolic 35–98; PULSE 90–121; RESP 16–17
[2017-01-03] MEDS: ARTIFICIAL TEARS 15 ML OPH BOTH EYES SCH ×4 (00:26→17:47)
[2017-01-03] MEDS: VALPROATE INJ 500 MG in DEXTROSE 5% 50 ML IVPB SCH ×4 (00:26→20:42)
[2017-01-03] MEDS: OCULAR LUBRICANT 3.5 GM OPH OINT BOTH EYES SCH ×4 (00:26→17:47)
[2017-01-03 05:29] LABS: CALCIUM 7.5 mg/dl (8.4-10.2); CREATININE 0.58 mg/dl (0.44-1.00); MAGNESIUM 1.7 mg/dl (1.7-2.5); PHOSPHORUS 2.4 mg/dl (2.5-4.9)
[2017-01-03] MEDS: VANCOMYCIN 1.25 GM in SOD CHLORIDE 0.9% 250 ML IVPB SCH ×2 (05:32→14:33)
[2017-01-03 05:34] LABS: BASOPHIL # 0.1 10^3/ul (0.0-0.1); BASOPHILS % 0.5 % (0.0-2.0); EOSINOPHILS # 0.2 10^3/ul (0.0-0.5); EOSINOPHILS % 1.2 % (0.0-7.0); HEMATOCRIT 31.2 % (37.0-47.0); HEMOGLOBIN 10.4 g/dl (12.0-16.0); LYMPHOCYTES # 1.8 10^3/ul (0.8-2.9); LYMPHOCYTES % 13.8 % (15.0-51.0); MEAN CORPUSCULAR HEMOGLOBIN 28.2 pg (29.0-33.0); MEAN CORPUSCULAR HGB CONC 33.3 g/dl (32.0-37.0); MEAN CORPUSCULAR VOLUME 84.6 fl (82.0-101.0); MEAN PLATELET VOLUME 11.8 fl (7.4-10.4); MONOCYTE # 0.9 10^3/ul (0.3-0.9); MONOCYTES % 6.8 % (0.0-11.0); NEUTROPHIL # 10.2 10^3/ul (1.6-7.5); NEUTROPHILS % 77.2 % (39.0-77.0); PLATELET COUNT 185 10^3/UL (140-415); RED BLOOD COUNT 3.69 10^6/ul (4.20-5.40); RED CELL DISTRIBUTION WIDTH 13.2 % (11.5-14.5); WHITE BLOOD COUNT 13.2 10^3/ul (4.8-10.8)
[2017-01-03 06:58] LABS: POTASSIUM 2.8 mmol/L (3.5-5.1)
--- NOTE | 2017-01-03 07:22 | PN ---
DATE: 01/03/2017 SUBJECTIVE DATA: The patient is critically ill on pressor support, full ventilatory support. The patient is full code. MRI findings were discussed with the . Repeat EEG is pending on Thursday. The patient's urinary output has improved, approximately 30 to 40 cc an hour. No other events noted. OBJECTIVE DATA: VITAL SIGNS: Blood pressure 123/81, respirations 16, pulse 109, temperature 98.6. I and Os: Patient has 3.5 L in, 1.2 L out. HEENT: Head is normocephalic. Pupils are dilated. NECK: Supple. HEART: Regular rate. LUNGS: Diminished breath sounds at the base. ABDOMEN: Abdomen soft nontender to palpation without guarding. EXTREMITIES: Extremities negative for clubbing, cyanosis. No edema. DERMATOLOGIC: Clean. No rashes. MUSCULOSKELETAL: No joint effusion. NEUROLOGIC: No change in exam. MEDICATIONS: Reviewed. LABORATORY AND DIAGNOSTIC DATA: Shows sodium 141, potassium 2.8, chloride 110, BUN 7, creatinine 0.58, calcium 7.5, phosphorus 2.4. White count 13.2, hemoglobin 10.4, hematocrit 31.2, platelet count is 185. ASSESSMENT AND PLAN: 1. 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 The patient's sodium levels have stabilized with DDAVP and hypotonic fluid. At this point, will continue current regimen of DDAVP. Will change fluids to half NS and start the patient on free water flushes 200 cc every 4 hours. Will continue to monitor serial sodium levels every six hours. Will continue to maintain patient at normal natremic values. 2. Hypokalemia. Replete potassium chloride. 3. Hypophosphatemia. Replete with potassium phosphate. 4. Status post cardiac arrest, etiology is unknown. Continue to monitor. 5. Severe anoxic brain injury. The patient's MRI findings have been reviewed. The patient is at risk for possible herniation. Follow up with Neurology, Neurosurgery. 6. Seizures. Continue anti epileptic medications. 7. Leukocytosis. 8. Shock, etiology may be neurogenic, questionable septic. Continue current antibiotic regimen, pressor support, intravenous fluids. 9. Ventilatory-dependent respiratory failure. Vent settings and ABGs reviewed. Dictated By: Ag Lewis DO /guillaume/chaparro /Document#: [id number]
[2017-01-03] MEDS ORDERED: SOD CHLORIDE 0.45% 1,000 ML IV SCH (07:30)
[2017-01-03] MEDS: POTASSIUM CHLORIDE 250 ML IVPB SCH ×2 (08:14→12:49)
[2017-01-03] MEDS: METOPROLOL 25 MG TAB GTB SCH ×2 (09:00→21:00)
[2017-01-03] MEDS ORDERED: POTASSIUM PHOSPHATE 20 MEQ in SOD CHLORIDE 0.9% 250 ML IVPB ONE (09:00)
--- NOTE | 2017-01-03 09:19 | PN ---
Date/Time of Note Date/Time of Note DATE: 01/03/17 TIME: 09:14 Assessment/Plan VTE Prophylaxis VTE Prophylaxis Intervention: SCD's Lines/Catheters IV Catheter Type (from Nrs): Central Line Central line still needed: Yes Urinary Cath still in place: Yes Reason Cath still needed: terminal illness/intractable pain Assessment/Plan Assessment/Plan 1. Anoxic brain injury - Neurology on board and recommendations appreciated. EEG showed periodic lateralizing epileptiform activity consistent with seizure activity. Keppra dose increased to 1500mg IV - Plans for repeat EEG tmrw to assess brain function - MRI revealed extensive restricted diffusion throughout the cortex of both hemispheres with most severe involvement of the inferior frontal lobes and the occipital lobes. There is also diffuse abnormal restricted diffusion involving the basal ganglia and thalami as well as the brainstem with evidence 2. Acute respiratory failure s/p Cardiac arrest - Still remains intubated and unresponsive - Unknown etiology. She was taken to laboratory worker and found to have clean coronaries with EF 20% - Cardiology on board and recommendations appreciated. 3. New onset seizures - Will continue on antiepileptics - EEG showed periodic lateralizing epileptiform activity consistent with seizure activity - Increase in Keppra dose and repeat EEG planned for tomorrow 4. Abdominal pain/weight loss/menstrual abnormalities - With present evidence of anoxic brain damage, will not pursue workup at this time 5. Diabetes insipidus - Nephrology on board and recommendations appreciated - Patient currently on DDAVP and urine output normalizing - labs q6 to monitor electrolytes 6. Leukocytosis- trending downward - Unknown source. Currently receiving broad spectrum Vanc and Cefepime 7. Hypokalemia - 2.7, replete 8. Disposition - Awaiting repeat EEG tmrw and [facility] on board. >30 minutes of critical care time was spent with patient. Mother currently at bedside and questions answered Subjective 24 Hr Interval Summary Free Text/Dictation Patient still intubated and nonresponsive. No new overnight events or acute changes in patients condition. Exam/Review of Systems Vital Signs Vitals Vital Signs Date Time Temp Pulse Resp B/P Pulse Ox O2 Delivery O2 Flow Rate FiO2 01/03/17 06:00 109 16 123/81 100 01/03/17 05:21 30 01/03/17 04:00 98.2 01/02/17 18:30 Mechanical Ventilator Intake and Output 01/02/17 01/02/17 01/03/17 15:00 23:00 07:00 Intake Total 1548.75 ml 1110.00 ml 915.75 ml Output Total 533 ml 422 ml 300 ml Balance 1015.75 ml 688.00 ml 615.75 ml Exam General: Intubated on mechanical ventilation, nonresponsive. warming blanket on CVS: Regular rhythm, tachycardic. no murmurs Lungs: diminished breath sounds, no crackles, or wheezes Abdomen: Soft , nontender, nondistended , bowel sounds are present. No guarding no rebound tenderness Extremities: Normal to inspection, no edema no cyanosis Neuro: pupils nonreactive b/l. no gag reflex elicited, no response to stimuli Results Result Diagram: 01/03/17 0439 01/03/17 0410 Results 24 hrs Laboratory Tests Test 01/02/17 13:45 01/02/17 19:24 01/03/17 00:56 01/03/17 04:00 Sodium Level 144 142 138 141 Potassium Level 2.8 *L Chloride Level 110 Carbon Dioxide Level 25 Anion Gap 9 Blood Urea Nitrogen 7 Creatinine 0.58 Glucose Level 102 Calcium Level 7.5 L Phosphorus Level 2.4 L Magnesium Level 1.7 Valproic Acid (Depakene) Level 68 Test 01/03/17 04:10 01/03/17 04:39 Sodium Level 140 White Blood Count 13.2 #H Red Blood Count 3.69 L Hemoglobin 10.4 L Hematocrit 31.2 L Mean Corpuscular Volume 84.6 Mean Corpuscular Hemoglobin 28.2 L Mean Corpuscular Hemoglobin Concent 33.3 Red Cell Distribution Width 13.2 Platelet Count 185 # Mean Platelet Volume 11.8 H Neutrophils % 77.2 H Lymphocytes % 13.8 L Monocytes % 6.8 Eosinophils % 1.2 Basophils % 0.5 Nucleated Red Blood Cells % 0.0 Neutrophils # 10.2 H Lymphocytes # 1.8 Monocytes # 0.9 Eosinophils # 0.2 Basophils # 0.1 Nucleated Red Blood Cells # 0.0 Medications Medications Current Medications Morphine Sulfate (morphine) 2 mg Q2H PRN IV FOR NON CARDIAC PAIN (4-10) Last administered on 01/01/17t 23:48; Admin Dose 2 MG; Start 12/30/16 at 06:30 Ondansetron HCl (Zofran Inj) 4 mg Q6H PRN IV NAUSEA AND/OR VOMITING; Start at 07:00 Lorazepam (Ativan) 1 mg Q2H PRN IV ANXIETY Last administered on 12/30/16 09:41 ; Admin Dose 1 MG; Start 12/30/16 at 07:00 Famotidine (Pepcid Iv) 20 mg DAILY IV Last administered on 01/02/17 09:14; Admin Dose 20 MG; Start 12/31/16 at 09:00 Acetaminophen (Tylenol Supp) 650 mg Q4H PRN [place] TEMP > 37C Last administered on 01/01/17 23:48; Admin Dose 650 MG; Start 12/30/16 at 07:00 Meperidine HCl (Demerol) 12.5 mg Q4H PRN IV POST OPERATIVE SHIVERING; Start at 07:00 Meperidine HCl (Demerol) 25 mg Q4H PRN IV POST OPERATIVE SHIVERING; Start 12/30 at 07:00 Eye Lubricant (Akwa Oint) 1 applic Q6 BOTH EYES Last administered on 01/03/17 05:32; Admin Dose 1 APPLIC; Start 12/30/16 at 12:00 Eye Lubricant (Artificial Tears Oph) 2 drop Q6 BOTH EYES Last administered on 05:32; Admin Dose 2 DROP; Start 12/30/16 at 12:00 Lorazepam 2 mg 2 mg Q6H PRN IV seizure Last administered on 12/30/16 09:41; Admin Dose 2 MG; Start 12/30/16 at 07:30 Fentanyl 100 ml @ 2.5 mls/hr TITRATE IV Last administered on 12/30/16 23:01; Admin Dose 2.5 MLS/HR; Start 12/30/16 at 07:30 Midazolam HCl 50 ml @ 1 mls/hr TITRATE IV Last administered on 12/31/16 18:28 ; Admin Dose 7 MLS/HR; Start 12/30/16 at 08:00 Vecuronium [place]/Dextrose (Norcuron/D5W) 100 ml @ 3.13 mls/hr TITRATE IV Last administered on 12/30/16 09:45; Admin Dose 3.13 MLS/HR; Start 12/30/16 at 09:00 Miscellaneous Information 1 ea NOTE XX ; Start 12/30/16 at 09:00 Glucose (Glutose) 15 gm Q15M PRN PO DECREASED GLUCOSE; Start 12/30/16 at 09:00 Glucose (Glutose) 22.5 gm Q15M PRN PO DECREASED GLUCOSE; Start 12/30/16 at 09: 00 Dextrose (D50w Syringe) 25 ml Q15M PRN IV DECREASED GLUCOSE; Start 12/30/16 at 09:00 Dextrose (D50w Syringe) 50 ml Q15M PRN IV DECREASED GLUCOSE; Start 12/30/16 at 09:00 Glucagon (Glucagen) 1 mg Q15M PRN IM DECREASED GLUCOSE; Start 12/30/16 at 09:00 Glucose 15 gm 15 gm Q15M PRN BUCCAL DECREASED GLUCOSE; Start 12/30/16 at 09:00 Cefepime HCl (Maxipime 1gm/50 ml (Pmx)) 50 ml @ 100 mls/hr Q12 IVPB Last administered on 01/02/17 20:41; Admin Dose 100 MLS/HR; Start 12/30/16 at 21:00 Metoprolol Tartrate (Lopressor) 25 mg BID GTB Last administered on 01/02/17 08 :46; Admin Dose 25 MG; Start 01/01/17 at 14:00 Desmopressin Acetate 4 mcg 4 mcg BID IV Last administered on 01/02/17 20:36; Admin Dose 4 MCG; Start 01/02/17 at 09:00 Vancomycin HCl 1.25 gm/Sodium Chloride 250 ml @ 83.333 mls/ hr Q8H IVPB Last administered on 01/03/17 05:32; Admin Dose 83.333 MLS/HR; Start 01/02/17 at 13: 00 Valproate Sodium 500 mg/Dextrose 55 ml @ 55 mls/hr Q6 IVPB Last administered on 01/03/17 05:32; Admin Dose 55 MLS/HR; Start 01/02/17 at 18:00 Levetiracetam 100 ml @ 400 mls/hr Q12 IVPB Last administered on 01/02/17 20: 36; Admin Dose 400 MLS/HR; Start 01/02/17 at 21:00 Potassium Chloride 250 ml @ 62.5 mls/hr Q4H IVPB Last administered on 08:14; Admin Dose 62.5 MLS/HR; Start 01/03/17 at 07:30; Stop 01/03/17 at 15 :29 Sodium Chloride 1,000 ml @ 100 mls/hr Q10H IV Last administered on 01/03/17t 08:13; Admin Dose 100 MLS/HR; Start 01/03/17 at 07:30 Potassium Phosphate/Sodium Chloride (K Phos (Meq)/NS) 254.5455 ml @ 63.636 m... ONCE ONCE IVPB ; Start 01/03/17 at 09:00; Stop 01/03/17 at 12:59 SHERLY GERARDO MD Jan 03, 2017 09:19
[2017-01-03] MEDS: DESMOPRESSIN 4 MCG INJ IV SCH ×2 (09:44→20:43)
[2017-01-03] MEDS: FAMOTIDINE 20 MG INJ IV SCH (09:49)
[2017-01-03] MEDS: LEVETIRACETAM 1500 MG (PMX) 100 ML IVPB SCH ×2 (09:50→20:43)
[2017-01-03] MEDS: CEFEPIME 1GM/50 ML (PMX) 50 ML IVPB SCH ×2 (10:29→21:11)
--- NOTE | 2017-01-03 10:41 | CONS ---
Date/Time of Note Date/Time of Note DATE: 01/03/17 TIME: 10:38 Assessment/Plan Assessment/Plan Additional Assessment/Plan Ventilator setting; AC of 16, tidal volume 500, PEEP of 5, 30% FiO2. Patient currently on Levophed at 5 mics per minute. Assessment recommendations; 1. Patient admitted with cardiac arrest likely arrhythmogenic in etiology. Likely from hypokalemia. 2. Possibly ongoing sepsis. 3. Mild hypotension. 4. Myoclonic jerking and seizures. Currently well controlled. Continue current supportive care. Will obtain follow-up chest x-ray. Prognosis is appearing extremely poor at this point. 35 minutes of critical care time was spent evaluating the patient. Consultation Date/Type/Reason Admit Date/Time Dec 30, 2016 at 06:20 Initial Consult Date 12/30/16 Type of Consultation: Pulmonary/critical care 24 HR Interval Summary Free Text/Dictation Patient's condition remains critical. Remains completely unresponsive. However no overt seizure activity noted. Patient has remained hemodynamically unstable. Requiring low-dose Levophed. General exam; young woman, orally intubated, unresponsive, currently in no distress. Exam/Review of Systems Vital Signs Vitals Vital Signs Date Time Temp Pulse Resp B/P Pulse Ox O2 Delivery O2 Flow Rate FiO2 01/03/17 08:00 111 01/03/17 06:00 16 123/81 100 01/03/17 05:21 30 01/03/17 04:00 98.2 01/02/17 18:30 Mechanical Ventilator Intake and Output 01/02/17 01/02/17 01/03/17 15:00 23:00 07:00 Intake Total 1548.75 ml 1110.00 ml 915.75 ml Output Total 533 ml 422 ml 300 ml Balance 1015.75 ml 688.00 ml 615.75 ml Exam HEENT exam; supple neck, no JVD. No lymphadenopathy. Midline trachea. No thyromegaly. Orally intubated. Patient has fair dentition. Pupils are midsize and very sluggishly reactive. Chest exam; clear to auscultation. S1-S2 audible, no murmurs. Regular rhythm. Abdomen exam; soft, no organomegaly. Bowel sounds audible. No distention. Extremity exam; no peripheral edema. Pulses 1+ bilaterally. EIGHT ARM OPERATOR exam; patient is unresponsive. Results Result Diagram: 01/03/17 0439 01/03/17 0410 Results 24 hrs Laboratory Tests Test 01/02/17 13:45 01/02/17 19:24 01/03/17 00:56 01/03/17 04:00 Sodium Level 144 142 138 141 Potassium Level 2.8 *L Chloride Level 110 Carbon Dioxide Level 25 Anion Gap 9 Blood Urea Nitrogen 7 Creatinine 0.58 Glucose Level 102 Calcium Level 7.5 L Phosphorus Level 2.4 L Magnesium Level 1.7 Valproic Acid (Depakene) Level 68 Test 01/03/17 04:10 01/03/17 04:39 Sodium Level 140 White Blood Count 13.2 #H Red Blood Count 3.69 L Hemoglobin 10.4 L Hematocrit 31.2 L Mean Corpuscular Volume 84.6 Mean Corpuscular Hemoglobin 28.2 L Mean Corpuscular Hemoglobin Concent 33.3 Red Cell Distribution Width 13.2 Platelet Count 185 # Mean Platelet Volume 11.8 H Neutrophils % 77.2 H Lymphocytes % 13.8 L Monocytes % 6.8 Eosinophils % 1.2 Basophils % 0.5 Nucleated Red Blood Cells % 0.0 Neutrophils # 10.2 H Lymphocytes # 1.8 Monocytes # 0.9 Eosinophils # 0.2 Basophils # 0.1 Nucleated Red Blood Cells # 0.0 Medications Medications Current Medications Morphine Sulfate (morphine) 2 mg Q2H PRN IV FOR NON CARDIAC PAIN (4-10) Last administered on 01/01/17 23:48; Admin Dose 2 MG; Start 12/30/16 at 06:30 Ondansetron HCl (Zofran Inj) 4 mg Q6H PRN IV NAUSEA AND/OR VOMITING; Start at 07:00 Lorazepam (Ativan) 1 mg Q2H PRN IV ANXIETY Last administered on 12/30/16 09:41 ; Admin Dose 1 MG; Start 12/30/16 at 07:00 Famotidine (Pepcid Iv) 20 mg DAILY IV Last administered on 01/03/17 09:49; Admin Dose 20 MG; Start 12/31/16 at 09:00 Acetaminophen (Tylenol Supp) 650 mg Q4H PRN [place] TEMP > 37C Last administered on 01/01/17 23:48; Admin Dose 650 MG; Start 12/30/16 at 07:00 Meperidine HCl (Demerol) 12.5 mg Q4H PRN IV POST OPERATIVE SHIVERING; Start at 07:00 Meperidine HCl (Demerol) 25 mg Q4H PRN IV POST OPERATIVE SHIVERING; Start 12/30 at 07:00 Eye Lubricant (Akwa Oint) 1 applic Q6 BOTH EYES Last administered on 01/03/17 05:32; Admin Dose 1 APPLIC; Start 12/30/16 at 12:00 Eye Lubricant (Artificial Tears Oph) 2 drop Q6 BOTH EYES Last administered on 05:32; Admin Dose 2 DROP; Start 12/30/16 at 12:00 Lorazepam 2 mg 2 mg Q6H PRN IV seizure Last administered on 12/30/16 09:41; Admin Dose 2 MG; Start 12/30/16 at 07:30 Fentanyl 100 ml @ 2.5 mls/hr TITRATE IV Last administered on 12/30/16 23:01; Admin Dose 2.5 MLS/HR; Start 12/30/16 at 07:30 Midazolam HCl 50 ml @ 1 mls/hr TITRATE IV Last administered on 12/31/16 18:28 ; Admin Dose 7 MLS/HR; Start 12/30/16 at 08:00 Vecuronium [place]/Dextrose (Norcuron/D5W) 100 ml @ 3.13 mls/hr TITRATE IV Last administered on 12/30/16 09:45; Admin Dose 3.13 MLS/HR; Start 12/30/16 at 09:00 Miscellaneous Information 1 ea NOTE XX ; Start 12/30/16 at 09:00 Glucose (Glutose) 15 gm Q15M PRN PO DECREASED GLUCOSE; Start 12/30/16 at 09:00 Glucose (Glutose) 22.5 gm Q15M PRN PO DECREASED GLUCOSE; Start 12/30/16 at 09: 00 Dextrose (D50w Syringe) 25 ml Q15M PRN IV DECREASED GLUCOSE; Start 12/30/16 at 09:00 Dextrose (D50w Syringe) 50 ml Q15M PRN IV DECREASED GLUCOSE; Start 12/30/16 at 09:00 Glucagon (Glucagen) 1 mg Q15M PRN IM DECREASED GLUCOSE; Start 12/30/16 at 09:00 Glucose 15 gm 15 gm Q15M PRN BUCCAL DECREASED GLUCOSE; Start 12/30/16 at 09:00 Cefepime HCl (Maxipime 1gm/50 ml (Pmx)) 50 ml @ 100 mls/hr Q12 IVPB Last administered on 01/03/17 10:29; Admin Dose 100 MLS/HR; Start 12/30/16 at 21:00 Metoprolol Tartrate (Lopressor) 25 mg BID GTB Last administered on 01/02/17 08 :46; Admin Dose 25 MG; Start 01/01/17 at 14:00 Desmopressin Acetate 4 mcg 4 mcg BID IV Last administered on 01/03/17 09:44; Admin Dose 4 MCG; Start 01/02/17 at 09:00 Vancomycin HCl 1.25 gm/Sodium Chloride 250 ml @ 83.333 mls/ hr Q8H IVPB Last administered on 01/03/17 05:32; Admin Dose 83.333 MLS/HR; Start 01/02/17 at 13: 00 Valproate Sodium 500 mg/Dextrose 55 ml @ 55 mls/hr Q6 IVPB Last administered on 01/03/17 05:32; Admin Dose 55 MLS/HR; Start 01/02/17 at 18:00 Levetiracetam 100 ml @ 400 mls/hr Q12 IVPB Last administered on 01/03/17 09: 50; Admin Dose 400 MLS/HR; Start 01/02/17 at 21:00 Potassium Chloride 250 ml @ 62.5 mls/hr Q4H IVPB Last administered on 08:14; Admin Dose 62.5 MLS/HR; Start 01/03/17 at 07:30; Stop 01/03/17 at 15 :29 Sodium Chloride 1,000 ml @ 100 mls/hr Q10H IV Last administered on 01/03/17 08:13; Admin Dose 100 MLS/HR; Start 01/03/17 at 07:30 Potassium Phosphate/Sodium Chloride (K Phos (Meq)/NS) 254.5455 ml @ 63.636 m... ONCE ONCE IVPB Last administered on 01/03/17 10:16; Admin Dose 63.636 MLS/HR; Start 01/03/17 at 09:00; Stop 9/23/17 at 12:59 PRABHAKAR BRIGGS Jan 03, 2017 10:41
--- NOTE | 2017-01-03 13:54 | CONS ---
Date/Time of Note Date/Time of Note DATE: 01/03/17 TIME: 13:53 Assessment/Plan Assessment/Plan Chief Complaint/Hosp Course Cardiorespiratory arrest Problems: Additional Assessment/Plan 26 yo female w recent unintentional weight loss, hypokalemia (K: 2.7) admitted cardiac arrest with post arrest cardiomyopathy currently being treated with hypothermia protocol on VPA, Keppra and Versed drip for seizures. MRI of brain is markedly abnormal, extensive restricted diffusion throughout the cortex of both hemispheres with most severe involvement of the inferior frontal lobes and the occipital lobes, basal ganglia and thalami as well as the brainstem with evidence of downward herniation of the brainstem and cerebellar tonsils, mild prominent lateral ventricles, minimal left to right midline shift. Suggesting extensive hypoxic brain injury. EEG showed periodic lateralizing epeleptriform activity consistent with seizure activity. Plan: -Increase keppra 1500 mg IV bid -Repeat EEG in a.m. -check VPA levels -Discussed with patient's sister who are present in room -Prognosis poor -will continue to follow Consultation Date/Type/Reason Admit Date/Time Dec 30, 2016 at 06:20 Initial Consult Date 12/30/16 Type of Consultation: Pulmonary/critical care Reason for Consultation Cardiac arrest 24 HR Interval Summary Free Text/Dictation Medically unchanged. Intubated, mechanically ventilated Exam/Review of Systems Vital Signs Vitals Vital Signs Date Time Temp Pulse Resp B/P Pulse Ox O2 Delivery O2 Flow Rate FiO2 01/03/17 11:15 98 16 101/59 100 01/03/17 08:00 98.6 01/03/17 07:15 Mechanical Ventilator 01/03/17 05:21 30 Intake and Output 01/02/17 01/02/17 01/03/17 15:00 23:00 07:00 Intake Total 1548.75 ml 1110.00 ml 935.75 ml Output Total 533 ml 422 ml 300 ml Balance 1015.75 ml 688.00 ml 635.75 ml Exam Constitutional: other (Comatose, unresponsive) Neurological: other (Comatose, unresponsive, does not withdraw to noxious stimulus, doll's eyes or gag reflexes, absent corneal reflex) Results Result Diagram: 01/03/17 0439 01/03/17 1225 Results 24 hrs Laboratory Tests Test 01/02/17 19:24 01/03/17 00:56 01/03/17 04:00 01/03/17 04:10 Sodium Level 142 138 141 140 Potassium Level 2.8 *L Chloride Level 110 Carbon Dioxide Level 25 Anion Gap 9 Blood Urea Nitrogen 7 Creatinine 0.58 Glucose Level 102 Calcium Level 7.5 L Phosphorus Level 2.4 L Magnesium Level 1.7 Valproic Acid (Depakene) Level 68 Test 01/03/17 04:39 01/03/17 11:55 01/03/17 12:25 White Blood Count 13.2 #H Red Blood Count 3.69 L Hemoglobin 10.4 L Hematocrit 31.2 L Mean Corpuscular Volume 84.6 Mean Corpuscular Hemoglobin 28.2 L Mean Corpuscular Hemoglobin Concent 33.3 Red Cell Distribution Width 13.2 Platelet Count 185 # Mean Platelet Volume 11.8 H Neutrophils % 77.2 H Lymphocytes % 13.8 L Monocytes % 6.8 Eosinophils % 1.2 Basophils % 0.5 Nucleated Red Blood Cells % 0.0 Neutrophils # 10.2 H Lymphocytes # 1.8 Monocytes # 0.9 Eosinophils # 0.2 Basophils # 0.1 Nucleated Red Blood Cells # 0.0 Bedside Glucose 79 Sodium Level 137 Medications Medications Current Medications Morphine Sulfate (morphine) 2 mg Q2H PRN IV FOR NON CARDIAC PAIN (4-10) Last administered on 01/01/17 23:48; Admin Dose 2 MG; Start 12/30/16 at 06:30 Ondansetron HCl (Zofran Inj) 4 mg Q6H PRN IV NAUSEA AND/OR VOMITING; Start at 07:00 Lorazepam (Ativan) 1 mg Q2H PRN IV ANXIETY Last administered on 12/30/16 09:41 ; Admin Dose 1 MG; Start 12/30/16 at 07:00 Famotidine (Pepcid Iv) 20 mg DAILY IV Last administered on 01/03/17 09:49; Admin Dose 20 MG; Start 12/31/16 at 09:00 Acetaminophen (Tylenol Supp) 650 mg Q4H PRN [place] TEMP > 37C Last administered on 01/01/17 23:48; Admin Dose 650 MG; Start 12/30/16 at 07:00 Meperidine HCl (Demerol) 12.5 mg Q4H PRN IV POST OPERATIVE SHIVERING; Start at 07:00 Meperidine HCl (Demerol) 25 mg Q4H PRN IV POST OPERATIVE SHIVERING; Start 12/30 at 07:00 Eye Lubricant (Akwa Oint) 1 applic Q6 BOTH EYES Last administered on 01/03/17 12:52; Admin Dose 1 APPLIC; Start 12/30/16 at 12:00 Eye Lubricant (Artificial Tears Oph) 2 drop Q6 BOTH EYES Last administered on 12:51; Admin Dose 2 DROP; Start 12/30/16 at 12:00 Lorazepam 2 mg 2 mg Q6H PRN IV seizure Last administered on 12/30/16 09:41; Admin Dose 2 MG; Start 12/30/16 at 07:30 Fentanyl 100 ml @ 2.5 mls/hr TITRATE IV Last administered on 12/30/16 23:01; Admin Dose 2.5 MLS/HR; Start 12/30/16 at 07:30 Midazolam HCl 50 ml @ 1 mls/hr TITRATE IV Last administered on 12/31/16 18:28 ; Admin Dose 7 MLS/HR; Start 12/30/16 at 08:00 Vecuronium [place]/Dextrose (Norcuron/D5W) 100 ml @ 3.13 mls/hr TITRATE IV Last administered on 12/30/16 09:45; Admin Dose 3.13 MLS/HR; Start 12/30/16 at 09:00 Miscellaneous Information 1 ea NOTE XX ; Start 12/30/16 at 09:00 Glucose (Glutose) 15 gm Q15M PRN PO DECREASED GLUCOSE; Start 12/30/16 at 09:00 Glucose (Glutose) 22.5 gm Q15M PRN PO DECREASED GLUCOSE; Start 12/30/16 at 09: 00 Dextrose (D50w Syringe) 25 ml Q15M PRN IV DECREASED GLUCOSE; Start 12/30/16 at 09:00 Dextrose (D50w Syringe) 50 ml Q15M PRN IV DECREASED GLUCOSE; Start 12/30/16 at 09:00 Glucagon (Glucagen) 1 mg Q15M PRN IM DECREASED GLUCOSE; Start 12/30/16 at 09:00 Glucose 15 gm 15 gm Q15M PRN BUCCAL DECREASED GLUCOSE; Start 12/30/16 at 09:00 Cefepime HCl (Maxipime 1gm/50 ml (Pmx)) 50 ml @ 100 mls/hr Q12 IVPB Last administered on 01/03/17 10:29; Admin Dose 100 MLS/HR; Start 12/30/16 at 21:00 Metoprolol Tartrate (Lopressor) 25 mg BID GTB Last administered on 01/02/17 08 :46; Admin Dose 25 MG; Start 01/01/17 at 14:00 Desmopressin Acetate 4 mcg 4 mcg BID IV Last administered on 01/03/17 09:44; Admin Dose 4 MCG; Start 01/02/17 at 09:00 Vancomycin HCl 1.25 gm/Sodium Chloride 250 ml @ 83.333 mls/ hr Q8H IVPB Last administered on 01/03/17 05:32; Admin Dose 83.333 MLS/HR; Start 01/02/17 at 13: 00 Valproate Sodium 500 mg/Dextrose 55 ml @ 55 mls/hr Q6 IVPB Last administered on 01/03/17 12:52; Admin Dose 55 MLS/HR; Start 01/02/17 at 18:00 Levetiracetam 100 ml @ 400 mls/hr Q12 IVPB Last administered on 01/03/17 09: 50; Admin Dose 400 MLS/HR; Start 01/02/17 at 21:00 Potassium Chloride 250 ml @ 62.5 mls/hr Q4H IVPB Last administered on 12:49; Admin Dose 62.5 MLS/HR; Start 01/03/17 at 07:30; Stop 01/03/17 at 15 :29 Sodium Chloride (1/2 NS) 1,000 ml @ 100 mls/hr Q10H IV Last administered on 08:13; Admin Dose 100 MLS/HR; Start 01/03/17 at 07:30 Miscellaneous Information (*Rx Drug Level Order Reminder*) VANCOMYCIN TROUGH AT 2000 ONCE ONCE XX ; Start 01/03/17 at 20:00; Stop 01/03/17 at 20:01 REBECCA CHILDERS MD Jan 03, 2017 13:54
--- NOTE | 2017-01-03 15:34 | RADRPT ---
PROCEDURE: XR Chest 1 View. CLINICAL INDICATION: Shortness of breath. TECHNIQUE: AP view of the chest was obtained. COMPARISON: January 01, 2017 FINDINGS: The cardiomediastinal silhouette is within normal limits. Endotracheal and nasogastric tubes are sta ble and appear in grossly appropriate location. Elevated right hemidiaphragm is identified. Scattere d atelectasis is noted in the right lower lobe. No consolidations are identified. No pneumothorax i s seen. Osseous structures are intact. IMPRESSION: Elevated right hemidiaphragm. Subsegmental atelectasis in the right lower lobe. RPTAT: AA .Marquise De Dios MD, MD Date Time Electronically viewed and signed by .Marquise De Diso MD, on 01/03/2017 15:34 .P/
[2017-01-03] MEDS: SOD CHLORIDE 0.9% 1,000 ML IV SCH (18:38)
[2017-01-04] VITALS (69 sets, daily range): BP systolic 89–120; BP diastolic 43–73; PULSE 90–118; RESP 12–18
[2017-01-04] MEDS: VALPROATE INJ 500 MG in DEXTROSE 5% 50 ML IVPB SCH ×4 (00:39→17:30)
[2017-01-04] MEDS: OCULAR LUBRICANT 3.5 GM OPH OINT BOTH EYES SCH ×4 (00:39→17:30)
[2017-01-04] MEDS: ARTIFICIAL TEARS 15 ML OPH BOTH EYES SCH ×4 (00:39→17:30)
[2017-01-04] MEDS: VANCOMYCIN 1.25 GM in SOD CHLORIDE 0.9% 250 ML IVPB SCH ×2 (00:43→13:59)
[2017-01-04 05:51] LABS: BASOPHILS % 0.3 % (0.0-2.0); EOSINOPHILS # 0.2 10^3/ul (0.0-0.5); HEMATOCRIT 26.5 % (37.0-47.0); HEMOGLOBIN 8.9 g/dl (12.0-16.0); LYMPHOCYTES # 1.2 10^3/ul (0.8-2.9); LYMPHOCYTES % 16.8 % (15.0-51.0); MEAN CORPUSCULAR HEMOGLOBIN 28.1 pg (29.0-33.0); MEAN CORPUSCULAR HGB CONC 33.6 g/dl (32.0-37.0); MEAN CORPUSCULAR VOLUME 83.6 fl (82.0-101.0); MEAN PLATELET VOLUME 11.9 fl (7.4-10.4); MONOCYTE # 0.8 10^3/ul (0.3-0.9); MONOCYTES % 11.3 % (0.0-11.0); NEUTROPHIL # 4.9 10^3/ul (1.6-7.5); RED BLOOD COUNT 3.17 10^6/ul (4.20-5.40); RED CELL DISTRIBUTION WIDTH 13.2 % (11.5-14.5); WHITE BLOOD COUNT 7.3 10^3/ul (4.8-10.8)
[2017-01-04 05:57] LABS: PLATELET COUNT 137 10^3/UL (140-415); POSITIVE DIFF @See below
[2017-01-04 06:14] LABS: CALCIUM 7.2 mg/dl (8.4-10.2); CREATININE 0.67 mg/dl (0.44-1.00); MAGNESIUM 1.7 mg/dl (1.7-2.5); PHOSPHORUS 2.5 mg/dl (2.5-4.9); POTASSIUM 3.7 mmol/L (3.5-5.1)
--- NOTE | 2017-01-04 07:38 | PN ---
DATE: 01/04/2017 SUBJECTIVE DATA: The patient remains critically ill, currently off pressors. Urinary output has been marginal, 150 cc overnight. No other events noted. OBJECTIVE DATA: VITAL SIGNS: Blood pressure 107/55, respirations 16, pulse 110, temp 98.6. Is and Os: Patient 4 L in with 1 L out. HEENT: Head is normocephalic. NECK: Supple. HEART: Regular rate. LUNGS: Diminished breath sounds at the base. ABDOMEN: Soft. Nontender to palpation. No rebound or guarding. EXTREMITIES: Negative for clubbing, cyanosis. Trace edema. DERMATOLOGIC: No rashes. MUSCULOSKELETAL: No joint effusion. NEUROLOGIC: Unchanged exam. MEDICATIONS: Reviewed. LABORATORY AND DIAGNOSTIC DATA: Shows sodium 138, potassium 3.7, BUN 8, creatinine 0.67. White count 7.3, hemoglobin 8.9, hematocrit 26.5, platelet count is 137. ASSESSMENT AND PLAN: 1. Diabetes insipidus, etiology secondary anoxic injury. The patient's urinary output has significantly decreased. The patient's sodium levels have stabilized. At this point, will decrease DDAVP to 1 mcg b.i.d. If urinary output remains marginal, will discontinue and monitor the urine output closely. The patient's free water flushes have been limited to only 30 cc q.8 hours. Will continue to monitor very closely. 2. Hypokalemia, resolved. 3. Hypophosphatemia, improved. 4. Shock. Etiology may be secondary to septic versus neurogenic. The patient is currently off pressor support. Continue current antibiotic regimen. Monitor closely 5. Severe anoxic brain injury. The patient has a repeat EEG is pending. Follow up with Neurology, Neurosurgery. 6. Seizures. Continue antiepileptic medications. 7. Ventilatory-dependent respiratory failure. Vent settings have been reviewed. ABGs reviewed. Dictated By: Ag Lewis DO /[email or web address]/[email or web address] /Document#: [id number]
[2017-01-04] MEDS: FAMOTIDINE 20 MG INJ IV SCH (08:53)
[2017-01-04] MEDS: METOPROLOL 25 MG TAB GTB SCH ×2 (08:53→21:00)
[2017-01-04] MEDS: LEVETIRACETAM 1500 MG (PMX) 100 ML IVPB SCH ×2 (08:54→22:11)
[2017-01-04] MEDS: CEFEPIME 1GM/50 ML (PMX) 50 ML IVPB SCH ×2 (08:55→22:11)
--- NOTE | 2017-01-04 10:23 | CONS ---
Date/Time of Note Date/Time of Note DATE: 01/04/17 TIME: 10:20 Assessment/Plan Assessment/Plan Additional Assessment/Plan Data setting; AC of 16, tidal volume 500, PEEP of 5, 30% FiO2. Patient off pressor support for more than 48 hours. Chest x-ray was reviewed from yesterday afternoon which is essentially clear. Assessment and recommendations; 1. Patient admitted with cardiac arrest status post prolonged CPR with likely resulting severe anoxic brain injury. 2. 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 Serum sodium within normal limits on low -dose desmopressin. 3. Leukocytosis on admission likely a stress response. Currently no evidence of any obvious infection source. 4. Seizures and myoclonic jerking which are currently well controlled. 5. Mild anemia and thrombocytopenia. Continue current supportive care. Patient is scheduled for another EEG today. Prognosis is extremely poor. I did have a very detailed discussion patient's at bedside and answered all his questions. 35 minutes of critical care time was spent evaluating the patient. Consultation Date/Type/Reason Admit Date/Time Dec 30, 2016 at 06:20 Initial Consult Date 12/30/16 Type of Consultation: Pulmonary/critical care 24 HR Interval Summary Free Text/Dictation Patient's condition remains critical. Remains profoundly unresponsive. Patient however has remained hemodynamically stable. No seizure activity noted. General exam; young woman, orally intubated, unresponsive, currently in no distress. Exam/Review of Systems Vital Signs Vitals Vital Signs Date Time Temp Pulse Resp B/P Pulse Ox O2 Delivery O2 Flow Rate FiO2 01/04/17 09:45 109 16 100/47 100 Mechanical Ventilator 01/04/17 08:00 99.4 01/04/17 05:20 30 Intake and Output 01/03/17 01/03/17 01/04/17 15:00 23:00 07:00 Intake Total 1833.0455 ml 1345 ml 1100 ml Output Total 499 ml 393 ml 250 ml Balance 1334.0455 ml 952 ml 850 ml Exam HEENT exam; supple neck, no JVD. No lymphadenopathy. Midline trachea. No thyromegaly. Pupils are dilated and nonreactive. Orally intubated. Patient has good dentition. Chest exam; clear to auscultation. S1-S2 audible, no murmurs. Regular rhythm. Abdomen exam; soft, no distention. No organomegaly. Bowel sounds audible. Extremity exam; no peripheral edema. AIR[employer]ANE CAP[employer] exam; patient remains unresponsive. Results Result Diagram: 01/04/17 0456 01/04/17 0456 Results 24 hrs Laboratory Tests Test 01/03/17 11:55 01/03/17 12:25 01/03/17 18:15 01/03/17 20:20 Bedside Glucose 79 Sodium Level 137 136 Vancomycin Level Trough 21.6 *H Test 01/04/17 00:36 01/04/17 04:56 Sodium Level 137 138 White Blood Count 7.3 # Red Blood Count 3.17 L Hemoglobin 8.9 L Hematocrit 26.5 L Mean Corpuscular Volume 83.6 Mean Corpuscular Hemoglobin 28.1 L Mean Corpuscular Hemoglobin Concent 33.6 Red Cell Distribution Width 13.2 Platelet Count 137 #L Mean Platelet Volume 11.9 H Neutrophils % 68.0 Lymphocytes % 16.8 Monocytes % 11.3 H Eosinophils % 3.0 Basophils % 0.3 Nucleated Red Blood Cells % 0.0 Neutrophils # 4.9 Lymphocytes # 1.2 Monocytes # 0.8 Eosinophils # 0.2 Basophils # 0.0 Nucleated Red Blood Cells # 0.0 Potassium Level 3.7 Chloride Level 112 H Carbon Dioxide Level 25 Anion Gap 5 L Blood Urea Nitrogen 8 Creatinine 0.67 Glucose Level 75 Calcium Level 7.2 L Phosphorus Level 2.5 Magnesium Level 1.7 Medications Medications Current Medications Morphine Sulfate (morphine) 2 mg Q2H PRN IV FOR NON CARDIAC PAIN (4-10) Last administered on 01/01/17 23:48; Admin Dose 2 MG; Start 12/30/16 at 06:30 Ondansetron HCl (Zofran Inj) 4 mg Q6H PRN IV NAUSEA AND/OR VOMITING; Start at 07:00 Lorazepam (Ativan) 1 mg Q2H PRN IV ANXIETY Last administered on 12/30/16 09:41 ; Admin Dose 1 MG; Start 12/30/16 at 07:00 Famotidine (Pepcid Iv) 20 mg DAILY IV Last administered on 01/04/17 08:53; Admin Dose 20 MG; Start 12/31/16 at 09:00 Acetaminophen (Tylenol Supp) 650 mg Q4H PRN [place] TEMP > 37C Last administered on 01/01/17 23:48; Admin Dose 650 MG; Start 12/30/16 at 07:00 Meperidine HCl (Demerol) 12.5 mg Q4H PRN IV POST OPERATIVE SHIVERING; Start at 07:00 Meperidine HCl (Demerol) 25 mg Q4H PRN IV POST OPERATIVE SHIVERING; Start 12/30 at 07:00 Eye Lubricant (Akwa Oint) 1 applic Q6 BOTH EYES Last administered on 01/04/17 06:00; Admin Dose 1 APPLIC; Start 12/30/16 at 12:00 Eye Lubricant (Artificial Tears Oph) 2 drop Q6 BOTH EYES Last administered on 06:00; Admin Dose 2 DROP; Start 12/30/16 at 12:00 Lorazepam 2 mg 2 mg Q6H PRN IV seizure Last administered on 12/30/16 09:41; Admin Dose 2 MG; Start 12/30/16 at 07:30 Fentanyl 100 ml @ 2.5 mls/hr TITRATE IV Last administered on 12/30/16 23:01; Admin Dose 2.5 MLS/HR; Start 12/30/16 at 07:30 Midazolam HCl (Versed) 50 ml @ 1 mls/hr TITRATE IV Last administered on 18:28; Admin Dose 7 MLS/HR; Start 12/30/16 at 08:00 Miscellaneous Information 1 ea NOTE XX ; Start 12/30/16 at 09:00 Glucose (Glutose) 15 gm Q15M PRN PO DECREASED GLUCOSE; Start 12/30/16 at 09:00 Glucose (Glutose) 22.5 gm Q15M PRN PO DECREASED GLUCOSE; Start 12/30/16 at 09: 00 Dextrose (D50w Syringe) 25 ml Q15M PRN IV DECREASED GLUCOSE; Start 12/30/16 at 09:00 Dextrose (D50w Syringe) 50 ml Q15M PRN IV DECREASED GLUCOSE; Start 12/30/16 at 09:00 Glucagon (Glucagen) 1 mg Q15M PRN IM DECREASED GLUCOSE; Start 12/30/16 at 09:00 Glucose 15 gm 15 gm Q15M PRN BUCCAL DECREASED GLUCOSE; Start 12/30/16 at 09:00 Cefepime HCl (Maxipime 1gm/50 ml (Pmx)) 50 ml @ 100 mls/hr Q12 IVPB Last administered on 01/04/17 08:55; Admin Dose 100 MLS/HR; Start 12/30/16 at 21:00 Metoprolol Tartrate 25 mg 25 mg BID GTB Last administered on 01/04/17 08:53; Admin Dose 25 MG; Start 01/01/17 at 14:00 Valproate Sodium 500 mg/Dextrose 55 ml @ 55 mls/hr Q6 IVPB Last administered on 01/04/17 06:01; Admin Dose 55 MLS/HR; Start 01/02/17 at 18:00 Levetiracetam 100 ml @ 400 mls/hr Q12 IVPB Last administered on 01/04/17 08: 54; Admin Dose 400 MLS/HR; Start 01/02/17 at 21:00 Sodium Chloride 1,000 ml @ 50 mls/hr Q20H IV Last administered on 01/03/17 18 :38; Admin Dose 50 MLS/HR; Start 01/03/17 at 18:00 Vancomycin HCl 1.25 gm/Sodium Chloride 250 ml @ 83.333 mls/ hr Q12H IVPB Last administered on 01/04/17 00:43; Admin Dose 83.333 MLS/HR; Start 01/04/17 at 01: 00 Norepinephrine/ Dextrose (Levophed/D5W) 500 ml @ 1,875 mls/hr TITRATE IV ; Start 01/03/17 at 23:30 Desmopressin Acetate (Ddavp) 1 mcg BID IV ; Start 01/04/17 at 09:00 PRABHAKAR BRIGGS Jan 04, 2017 10:23
[2017-01-04] MEDS: DESMOPRESSIN 4 MCG INJ IV SCH ×2 (10:55→22:11)
[2017-01-04] MEDS: SOD CHLORIDE 0.9% 1,000 ML IV SCH ×2 (14:00→16:59)
--- NOTE | 2017-01-04 15:26 | PN ---
Date/Time of Note Date/Time of Note DATE: 01/04/17 TIME: 15:22 Assessment/Plan VTE Prophylaxis VTE Prophylaxis Intervention: SCD's Lines/Catheters IV Catheter Type (from Nrs): Central Line Central line still needed: Yes Urinary Cath still in place: Yes Reason Cath still needed: terminal illness/intractable pain Assessment/Plan Assessment/Plan 1. Anoxic brain injury - Patient conditions remains the same - Neurology on board and recommendations appreciated. Initial EEG showed periodic lateralizing epileptiform activity consistent with seizure activity. Keppra dose increased to 1500mg IV - Repeat EEG today - MRI revealed extensive restricted diffusion throughout the cortex of both hemispheres with most severe involvement of the inferior frontal lobes and the occipital lobes. There is also diffuse abnormal restricted diffusion involving the basal ganglia and thalami as well as the brainstem with evidence 2. Acute respiratory failure s/p Cardiac arrest - Still remains intubated and unresponsive - Unknown etiology. She was taken to [facility] and found to have clean coronaries with EF 20% - Cardiology on board and recommendations appreciated. 3. New onset seizures - Will continue on antiepileptics - EEG showed periodic lateralizing epileptiform activity consistent with seizure activity - Increase in Keppra dose and repeat EEG today 4. Abdominal pain/weight loss/menstrual abnormalities - With present evidence of anoxic brain damage, will not pursue workup at this time 5. Diabetes insipidus - Nephrology on board and recommendations appreciated - Patient currently on DDAVP and rate decreased this am given normalizing Na levels. Urine output normalizing 6. Leukocytosis- normalized - Unknown source. Currently receiving broad spectrum Vanc and Cefepime 7. Hypokalemia - resolved. will continue monitoring and replace as needed 8. Disposition - Awaiting repeat EEG results and [facility] on board. >30 minutes of critical care time was spent with patient. Subjective 24 Hr Interval Summary Free Text/Dictation Patient remains intubated and nonresponsive. No acute overnight events or changes in patients condition. Exam/Review of Systems Vital Signs Vitals Vital Signs Date Time Temp Pulse Resp B/P Pulse Ox O2 Delivery O2 Flow Rate FiO2 01/04/17 12:00 97 01/04/17 11:20 16 100 30 01/04/17 11:00 94/48 Mechanical Ventilator 01/04/17 08:00 99.4 Intake and Output 01/03/17 01/03/17 01/04/17 15:00 23:00 07:00 Intake Total 1833.0455 ml 1345 ml 1180 ml Output Total 499 ml 393 ml 250 ml Balance 1334.0455 ml 952 ml 930 ml Exam General: Intubated on mechanical ventilation, remains nonresponsive CVS: Regular rhythm, tachycardic. no murmurs Lungs: diminished breath sounds, no crackles, or wheezes Abdomen: Soft , nontender, nondistended , bowel sounds are present. No guarding no rebound tenderness Extremities: Normal to inspection, no edema no cyanosis Neuro: pupils nonreactive b/l. no gag reflex elicited, no response to stimuli Results Result Diagram: 01/04/17 0456 01/04/17 1200 Results 24 hrs Laboratory Tests Test 01/03/17 18:15 01/03/17 20:20 01/04/17 00:36 01/04/17 04:56 Sodium Level 136 137 138 Vancomycin Level Trough 21.6 *H White Blood Count 7.3 # Red Blood Count 3.17 L Hemoglobin 8.9 L Hematocrit 26.5 L Mean Corpuscular Volume 83.6 Mean Corpuscular Hemoglobin 28.1 L Mean Corpuscular Hemoglobin Concent 33.6 Red Cell Distribution Width 13.2 Platelet Count 137 #L Mean Platelet Volume 11.9 H Neutrophils % 68.0 Lymphocytes % 16.8 Monocytes % 11.3 H Eosinophils % 3.0 Basophils % 0.3 Nucleated Red Blood Cells % 0.0 Neutrophils # 4.9 Lymphocytes # 1.2 Monocytes # 0.8 Eosinophils # 0.2 Basophils # 0.0 Nucleated Red Blood Cells # 0.0 Potassium Level 3.7 Chloride Level 112 H Carbon Dioxide Level 25 Anion Gap 5 L Blood Urea Nitrogen 8 Creatinine 0.67 Glucose Level 75 Calcium Level 7.2 L Phosphorus Level 2.5 Magnesium Level 1.7 Test 01/04/17 12:00 Sodium Level 138 Medications Medications Current Medications Morphine Sulfate (morphine) 2 mg Q2H PRN IV FOR NON CARDIAC PAIN (4-10) Last administered on 01/01/17 23:48; Admin Dose 2 MG; Start 12/30/16 at 06:30 Ondansetron HCl (Zofran Inj) 4 mg Q6H PRN IV NAUSEA AND/OR VOMITING; Start at 07:00 Lorazepam (Ativan) 1 mg Q2H PRN IV ANXIETY Last administered on 12/30/16 09:41 ; Admin Dose 1 MG; Start 12/30/16 at 07:00 Famotidine (Pepcid Iv) 20 mg DAILY IV Last administered on 01/04/17 08:53; Admin Dose 20 MG; Start 12/31/16 at 09:00 Acetaminophen (Tylenol Supp) 650 mg Q4H PRN [place] TEMP > 37C Last administered on 01/01/17 23:48; Admin Dose 650 MG; Start 12/30/16 at 07:00 Meperidine HCl (Demerol) 12.5 mg Q4H PRN IV POST OPERATIVE SHIVERING; Start at 07:00 Meperidine HCl (Demerol) 25 mg Q4H PRN IV POST OPERATIVE SHIVERING; Start 12/30 at 07:00 Eye Lubricant (Akwa Oint) 1 applic Q6 BOTH EYES Last administered on 01/04/17 14:06; Admin Dose 1 APPLIC; Start 12/30/16 at 12:00 Eye Lubricant (Artificial Tears Oph) 2 drop Q6 BOTH EYES Last administered on 14:06; Admin Dose 2 DROP; Start 12/30/16 at 12:00 Lorazepam 2 mg 2 mg Q6H PRN IV seizure Last administered on 12/30/16 09:41; Admin Dose 2 MG; Start 12/30/16 at 07:30 Fentanyl 100 ml @ 2.5 mls/hr TITRATE IV Last administered on 12/30/16 23:01; Admin Dose 2.5 MLS/HR; Start 12/30/16 at 07:30 Midazolam HCl (Versed) 50 ml @ 1 mls/hr TITRATE IV Last administered on 18:28; Admin Dose 7 MLS/HR; Start 12/30/16 at 08:00 Miscellaneous Information 1 ea NOTE XX ; Start 12/30/16 at 09:00 Glucose (Glutose) 15 gm Q15M PRN PO DECREASED GLUCOSE; Start 12/30/16 at 09:00 Glucose (Glutose) 22.5 gm Q15M PRN PO DECREASED GLUCOSE; Start 12/30/16 at 09: 00 Dextrose (D50w Syringe) 25 ml Q15M PRN IV DECREASED GLUCOSE; Start 12/30/16 at 09:00 Dextrose (D50w Syringe) 50 ml Q15M PRN IV DECREASED GLUCOSE; Start 12/30/16 at 09:00 Glucagon (Glucagen) 1 mg Q15M PRN IM DECREASED GLUCOSE; Start 12/30/16 at 09:00 Glucose 15 gm 15 gm Q15M PRN BUCCAL DECREASED GLUCOSE; Start 12/30/16 at 09:00 Cefepime HCl (Maxipime 1gm/50 ml (Pmx)) 50 ml @ 100 mls/hr Q12 IVPB Last administered on 01/04/17 08:55; Admin Dose 100 MLS/HR; Start 12/30/16 at 21:00 Metoprolol Tartrate 25 mg 25 mg BID GTB Last administered on 01/04/17 08:53; Admin Dose 25 MG; Start 01/01/17 at 14:00 Valproate Sodium 500 mg/Dextrose 55 ml @ 55 mls/hr Q6 IVPB Last administered on 01/04/17 13:50; Admin Dose 55 MLS/HR; Start 01/02/17 at 18:00 Levetiracetam 100 ml @ 400 mls/hr Q12 IVPB Last administered on 01/04/17 08: 54; Admin Dose 400 MLS/HR; Start 01/02/17 at 21:00 Sodium Chloride 1,000 ml @ 50 mls/hr Q20H IV Last administered on 01/03/17 18 :38; Admin Dose 50 MLS/HR; Start 01/03/17 at 18:00 Vancomycin HCl 1.25 gm/Sodium Chloride 250 ml @ 83.333 mls/ hr Q12H IVPB Last administered on 01/04/17 13:59; Admin Dose 83.333 MLS/HR; Start 01/04/17 at 01: 00 Norepinephrine/ Dextrose (Levophed/D5W) 500 ml @ 1,875 mls/hr TITRATE IV ; Start 01/03/17 at 23:30 Desmopressin Acetate (Ddavp) 1 mcg BID IV Last administered on 01/04/17 10:55 ; Admin Dose 1 MCG; Start 01/04/17 at 09:00 SHERLY GERARDO MD Jan 04, 2017 15:26
[2017-01-04 15:54] LABS: AADO2 Arterial 49.5 mmHg (7.0-24.0); Allen Test ACCEPTAB; Arterial Base Excess -1.3 mmol/L (-3.0-3); Arterial COHb 0.1 % (0.0-3.0); Arterial Fraction of Oxyhgb 97.8 % (93.0-99.0); Arterial HCO3 21.2 mmol/L (22.0-26.0); Arterial MetHb 0.1 % (0.0-1.5); Arterial Total Hemglobin 9.5 g/dl (12.0-18.0); MODE VENT - AC
--- NOTE | 2017-01-04 16:39 | EN ---
Date/Time of Note Date/Time of Note DATE: 01/04/17 TIME: 16:35 Event Note Medicine Medicine Event Note Patient had an EEG performed today which is showing flat without any brain activity. Neurologist has ordered an apnea test. I did have a very detailed discussion with the patient's as well as patient's mother about the apnea testing. Explained to them that the patient likely is brain it at this point. Apnea test is to confirm any residual brain activity. Risk of cardiac arrest during apnea testing was explained to the family in detail. In the event of this possibility I also explained to them , that it would be futile to revive the patient if she undergoes cardiac arrest. The family is in agreement and they do want to go ahead and proceed with apnea testing. Currently the patient is being mildly hyperventilated and therefore ventilator settings have been adjusted, assist-control rate has been decreased to 12, apnea testing to be performed in about 30 minutes time. PRABHAKAR BRIGGS Jan 04, 2017 16:38
[2017-01-05] VITALS (57 sets, daily range): BP systolic 62–104; BP diastolic 40–64; PULSE 0–109; RESP 0–14
[2017-01-05] MEDS: OCULAR LUBRICANT 3.5 GM OPH OINT BOTH EYES SCH ×4 (00:15→17:26)
[2017-01-05] MEDS: ARTIFICIAL TEARS 15 ML OPH BOTH EYES SCH ×4 (00:15→17:26)
[2017-01-05] MEDS: VALPROATE INJ 500 MG in DEXTROSE 5% 50 ML IVPB SCH ×4 (00:15→17:26)
[2017-01-05] MEDS: VANCOMYCIN 1.25 GM in SOD CHLORIDE 0.9% 250 ML IVPB SCH (01:04)
[2017-01-05 05:27] LABS: BASOPHILS % 0.3 % (0.0-2.0); EOSINOPHILS # 0.3 10^3/ul (0.0-0.5); HEMATOCRIT 26.3 % (37.0-47.0); HEMOGLOBIN 8.5 g/dl (12.0-16.0); LYMPHOCYTES # 0.9 10^3/ul (0.8-2.9); LYMPHOCYTES % 13.6 % (15.0-51.0); MEAN CORPUSCULAR HEMOGLOBIN 27.7 pg (29.0-33.0); MEAN CORPUSCULAR HGB CONC 32.3 g/dl (32.0-37.0); MEAN CORPUSCULAR VOLUME 85.7 fl (82.0-101.0); MEAN PLATELET VOLUME 11.6 fl (7.4-10.4); MONOCYTE # 0.7 10^3/ul (0.3-0.9); MONOCYTES % 10.7 % (0.0-11.0); NEUTROPHIL # 4.6 10^3/ul (1.6-7.5); NEUTROPHILS % 70.6 % (39.0-77.0); PLATELET COUNT 164 10^3/UL (140-415); RED BLOOD COUNT 3.07 10^6/ul (4.20-5.40); RED CELL DISTRIBUTION WIDTH 13.3 % (11.5-14.5); WHITE BLOOD COUNT 6.6 10^3/ul (4.8-10.8)
[2017-01-05 06:04] LABS: CALCIUM 7.6 mg/dl (8.4-10.2); CREATININE 0.64 mg/dl (0.44-1.00); MAGNESIUM 1.9 mg/dl (1.7-2.5); PHOSPHORUS 4.3 mg/dl (2.5-4.9); POTASSIUM 3.1 mmol/L (3.5-5.1)
[2017-01-05] MEDS ORDERED: POTASSIUM CHLORIDE 250 ML IVPB ONE (07:30)
--- NOTE | 2017-01-05 07:46 | PN ---
DATE: 01/05/2017 SUBJECTIVE: The patient remains critically ill. No significant neurologic improvement. No other acute events noted. No hemoptysis, hematemesis, hematochezia. OBJECTIVE DATA: VITAL SIGNS: Blood pressure is 93/50, respirations 12, pulse 99, temperature 98.6. I's and O's have been reviewed. HEENT: Head is normocephalic. Pupils are reactive to light. NECK: Supple. HEART: Regular rate. LUNGS: Diminished breath sounds at the base. ABDOMEN: Soft. Nontender to palpation. No rebound or guarding. EXTREMITIES: Negative for clubbing or cyanosis. No edema. DERMATOLOGIC: No rashes. MUSCULOSKELETAL: No joint effusion. NEUROLOGIC: Unchanged exam. MEDICATIONS: Reviewed. LABORATORY AND DIAGNOSTIC DATA: Shows sodium 140, potassium 3.1, chloride 113, BUN 5, creatinine 0.64. White count 6.6, hemoglobin 8.5, hematocrit 26.3, platelet count is 1.34. ASSESSMENT AND PLAN: 1. 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 The patient's urinary output has been increasing. We will monitor closely. Will likely increase DDAVP if the patient's urine output continues greater than 100 cc/hour. We will monitor sodium levels closely q.8 hours. 2. Hypokalemia. Replete potassium chloride. 3. Status post shock, etiology septic versus neurogenic. The patient is currently off pressor support. Continue current antibiotic regimen. 4. Severe anoxic brain injury. Follow up with Neurology. Apnea test is pending. 5. Seizure disorder. Continue antiepileptic medications. 6. Ventilator dependent respiratory failure. Vent settings reviewed. ABGs reviewed. Continue to monitor. Follow up with Pulmonary. Dictated By: Ag Lewis DO /[email or web address] /Document#: [id number]
[2017-01-05] MEDS: CEFEPIME 1GM/50 ML (PMX) 50 ML IVPB SCH (08:34)
[2017-01-05] MEDS: METOPROLOL 25 MG TAB GTB SCH ×2 (08:35→21:00)
[2017-01-05] MEDS: LEVETIRACETAM 1500 MG (PMX) 100 ML IVPB SCH ×2 (09:06→21:00)
[2017-01-05] MEDS: FAMOTIDINE 20 MG INJ IV SCH (09:06)
[2017-01-05] MEDS: DESMOPRESSIN 4 MCG INJ IV SCH ×2 (09:13→21:00)
[2017-01-05 09:18] LABS: Allen Test ACCEPTAB; Arterial Base Excess 1.6 mmol/L (-3.0-3); Arterial COHb 0.2 % (0.0-3.0); Arterial HCO3 25.5 mmol/L (22.0-26.0); Arterial MetHb 0.3 % (0.0-1.5); Arterial Total Hemglobin 9.4 g/dl (12.0-18.0); MODE VENT - AC
[2017-01-05] MEDS: SOD CHLORIDE 0.9% 1,000 ML IV SCH ×2 (10:00→12:12)
[2017-01-05 10:07] LABS: AADO2 Arterial 247.2 mmHg (7.0-24.0); Arterial Base Excess 0.3 mmol/L (-3.0-3); Arterial COHb 0.2 % (0.0-3.0); Arterial Fraction of Oxyhgb 98.5 % (93.0-99.0); Arterial HCO3 27.4 mmol/L (22.0-26.0); Arterial MetHb 0.6 % (0.0-1.5); Arterial Total Hemglobin 9.2 g/dl (12.0-18.0); MODE APNEA TEST
[2017-01-05 10:24] LABS: Allen Test ACCEPTAB; Arterial Base Excess -4.5 mmol/L (-3.0-3); Arterial COHb 0.1 % (0.0-3.0); Arterial Fraction of Oxyhgb 98.6 % (93.0-99.0); Arterial HCO3 23.9 mmol/L (22.0-26.0); Arterial MetHb 0.4 % (0.0-1.5); Arterial Total Hemglobin 10.3 g/dl (12.0-18.0); MODE NASAL CANNULA
--- NOTE | 2017-01-05 10:27 | CONS ---
Date/Time of Note Date/Time of Note DATE: 01/05/17 TIME: 10:24 Assessment/Plan Assessment/Plan Additional Assessment/Plan Ventilator setting; AC of 12, tidal volume 500, PEEP of 5, 100% FiO2. Assessment and recommendations; 1. Patient admitted with cardiac arrest likely arrhythmogenic in etiology because of hypokalemia. 2. Myoclonic jerking and seizures currently well controlled. 3. Currently no evidence of any infective process. 4. Patient likely brain . 5. Some element of central diabetes insipidus. Continue current supportive care. Patient's family is still reluctant for terminal extubation. Prognosis is dismal. Consultation Date/Type/Reason Admit Date/Time Dec 30, 2016 at 06:20 Initial Consult Date 12/30/16 Type of Consultation: Pulmonary/critical care 24 HR Interval Summary Free Text/Dictation Patient's condition remains critical. Remains completely unresponsive. Patient however has remained hemodynamically. No overt seizure activity noted. General exam; young woman, orally intubated, unresponsive,. In no distress. Exam/Review of Systems Vital Signs Vitals Vital Signs Date Time Temp Pulse Resp B/P Pulse Ox O2 Delivery O2 Flow Rate FiO2 01/05/17 09:30 93 12 85/43 100 Mechanical Ventilator 01/05/17 09:00 99.3 01/05/17 08:00 30 Intake and Output 01/04/17 01/04/17 01/05/17 15:00 23:00 07:00 Intake Total 920 ml 1055 ml 900 ml Output Total 631 ml 314 ml 435 ml Balance 289 ml 741 ml 465 ml Exam HEENT exam; supple neck, pupils are dilated and nonreactive to light. Orally intubated. Patient has fair dentition. No neck masses. Chest exam; clear to auscultation. S1-S2 audible, no murmurs. Regular rhythm. Abdomen exam; soft, no organomegaly. Bowel sounds are sluggish. Extremity exam; no peripheral edema. PATROL LADY exam; patient remains completely unresponsive. Results Result Diagram: 01/05/17 0400 01/05/17 0400 Results 24 hrs Laboratory Tests Test 01/04/17 12:00 01/04/17 15:25 01/04/17 18:22 01/04/17 18:53 Sodium Level 138 138 Blood Gas Specimen Source Blood arterial Blood arterial Arterial Blood Date Drawn 01/04/2017 3:40:13 PM 01/04/2017 6:20:00 PM Arterial Blood pH (Temp corrected) 7.498 H 7.206 *L Arterial Blood pCO2 (Temp correct) 28.0 L 61.8 H Arterial Blood pO2 (Temp corrected) 131.5 H 448.2 H Arterial Blood HCO3 21.2 L 23.9 Arterial Blood Base Excess -1.3 -4.5 L Arterial Blood Oxygen Saturation 98.0 99.1 H Virgilio Test ACCEPTAB ACCEPTAB Arterial Blood Gas Puncture Site Right Radial Right Radial Arterial Blood Carboxyhemoglobin 0.1 0.1 Arterial Blood Methemoglobin 0.1 0.4 Blood Gas A-a O2 Differential 49.5 H 203.0 H Oxyhemoglobin Percent 97.8 98.6 Total Hemoglobin 9.5 L 10.3 L Blood Gas Temperature 37.0 37.0 Blood Gas Respiration Rate 16.0 Blood Gas Actual Respiration Rate 16 Blood Gas Modality VENT - AC NASAL CANNULA FiO2 30.0 100.0 Blood Gas Tidal Volume 500.0 Blood Gas Low PEEP Setting 5.0 Blood Gas Critical Value Read Back Sam. SHOAIB RN Zehra ORONA RN Blood Gas Notified Whom RDIX DT Blood Gas Notified Time 01/04/2017 3:53:49 PM 01/04/2017 6:28:00 PM Test 01/05/17 00:38 01/05/17 04:00 01/05/17 08:53 01/05/17 09:55 Sodium Level 136 140 White Blood Count 6.6 Red Blood Count 3.07 L Hemoglobin 8.5 L Hematocrit 26.3 L Mean Corpuscular Volume 85.7 Mean Corpuscular Hemoglobin 27.7 L Mean Corpuscular Hemoglobin Concent 32.3 Red Cell Distribution Width 13.3 Platelet Count 164 Mean Platelet Volume 11.6 H Neutrophils % 70.6 Lymphocytes % 13.6 L Monocytes % 10.7 Eosinophils % 4.0 Basophils % 0.3 Nucleated Red Blood Cells % 0.0 Neutrophils # 4.6 Lymphocytes # 0.9 Monocytes # 0.7 Eosinophils # 0.3 Basophils # 0.0 Nucleated Red Blood Cells # 0.0 Potassium Level 3.1 L Chloride Level 113 H Carbon Dioxide Level 26 Anion Gap 4 L Blood Urea Nitrogen 5 L Creatinine 0.64 Glucose Level 90 Calcium Level 7.6 L Phosphorus Level 4.3 Magnesium Level 1.9 Blood Gas Specimen Source Blood arterial Blood arterial Arterial Blood Date Drawn 01/05/2017 9:05:51 AM 01/05/2017 9:55:34 AM Arterial Blood pH (Temp corrected) 7.451 H 7.292 *L Arterial Blood pCO2 (Temp correct) 37.5 58.0 H Arterial Blood pO2 (Temp corrected) 91.8 407.8 H Arterial Blood HCO3 25.5 27.4 H Arterial Blood Base Excess 1.6 0.3 Arterial Blood Oxygen Saturation 96.5 99.3 H Virgilio Test ACCEPTAB N/A Arterial Blood Gas Puncture Site Right Radial Right Brachial Arterial Blood Carboxyhemoglobin 0.2 0.2 Arterial Blood Methemoglobin 0.3 0.6 Blood Gas A-a O2 Differential 78.0 H 247.2 H Oxyhemoglobin Percent 96.0 98.5 Total Hemoglobin 9.4 L 9.2 L Blood Gas Temperature 37.0 37.0 Blood Gas Respiration Rate 12.0 Blood Gas Actual Respiration Rate 12 Blood Gas Modality VENT - AC APNEA TEST FiO2 30.0 100.0 Blood Gas Tidal Volume 500.0 Blood Gas Low PEEP Setting 5.0 Blood Gas Notified Whom JLD JLD Blood Gas Notified Time 01/05/2017 9:17:56 AM 01/05/2017 10:06:15 AM Blood Gas Critical Value Read Back Nichelle HAWTHORNE RN Medications Medications Current Medications Morphine Sulfate (morphine) 2 mg Q2H PRN IV FOR NON CARDIAC PAIN (4-10) Last administered on 01/01/17 23:48; Admin Dose 2 MG; Start 12/30/16 at 06:30 Ondansetron HCl (Zofran Inj) 4 mg Q6H PRN IV NAUSEA AND/OR VOMITING; Start at 07:00 Lorazepam (Ativan) 1 mg Q2H PRN IV ANXIETY Last administered on 12/30/16 09:41 ; Admin Dose 1 MG; Start 12/30/16 at 07:00 Famotidine (Pepcid Iv) 20 mg DAILY IV Last administered on 01/05/17 09:06; Admin Dose 20 MG; Start 12/31/16 at 09:00 Acetaminophen (Tylenol Supp) 650 mg Q4H PRN [place] TEMP > 37C Last administered on 01/01/17 23:48; Admin Dose 650 MG; Start 12/30/16 at 07:00 Meperidine HCl (Demerol) 12.5 mg Q4H PRN IV POST OPERATIVE SHIVERING; Start at 07:00 Meperidine HCl (Demerol) 25 mg Q4H PRN IV POST OPERATIVE SHIVERING; Start 12/30 at 07:00 Eye Lubricant (Akwa Oint) 1 applic Q6 BOTH EYES Last administered on 01/05/17 05:50; Admin Dose 1 APPLIC; Start 12/30/16 at 12:00 Eye Lubricant (Artificial Tears Oph) 2 drop Q6 BOTH EYES Last administered on 05:50; Admin Dose 2 DROP; Start 12/30/16 at 12:00 Lorazepam 2 mg 2 mg Q6H PRN IV seizure Last administered on 12/30/16 09:41; Admin Dose 2 MG; Start 12/30/16 at 07:30 Fentanyl 100 ml @ 2.5 mls/hr TITRATE IV Last administered on 12/30/16 23:01; Admin Dose 2.5 MLS/HR; Start 12/30/16 at 07:30 Midazolam HCl (Versed) 50 ml @ 1 mls/hr TITRATE IV Last administered on 18:28; Admin Dose 7 MLS/HR; Start 12/30/16 at 08:00 Miscellaneous Information 1 ea NOTE XX ; Start 12/30/16 at 09:00 Glucose (Glutose) 15 gm Q15M PRN PO DECREASED GLUCOSE; Start 12/30/16 at 09:00 Glucose (Glutose) 22.5 gm Q15M PRN PO DECREASED GLUCOSE; Start 12/30/16 at 09: 00 Dextrose (D50w Syringe) 25 ml Q15M PRN IV DECREASED GLUCOSE; Start 12/30/16 at 09:00 Dextrose (D50w Syringe) 50 ml Q15M PRN IV DECREASED GLUCOSE; Start 12/30/16 at 09:00 Glucagon (Glucagen) 1 mg Q15M PRN IM DECREASED GLUCOSE; Start 12/30/16 at 09:00 Glucose 15 gm 15 gm Q15M PRN BUCCAL DECREASED GLUCOSE; Start 12/30/16 at 09:00 Cefepime HCl (Maxipime 1gm/50 ml (Pmx)) 50 ml @ 100 mls/hr Q12 IVPB Last administered on 01/05/17 08:34; Admin Dose 100 MLS/HR; Start 12/30/16 at 21:00 Metoprolol Tartrate 25 mg 25 mg BID GTB Last administered on 01/04/17 08:53; Admin Dose 25 MG; Start 01/01/17 at 14:00 Valproate Sodium 500 mg/Dextrose 55 ml @ 55 mls/hr Q6 IVPB Last administered on 01/05/17 05:50; Admin Dose 55 MLS/HR; Start 01/02/17 at 18:00 Levetiracetam 100 ml @ 400 mls/hr Q12 IVPB Last administered on 01/05/17 09: 06; Admin Dose 400 MLS/HR; Start 01/02/17 at 21:00 Sodium Chloride 1,000 ml @ 50 mls/hr Q20H IV Last administered on 01/04/17 16 :59; Admin Dose 50 MLS/HR; Start 01/03/17 at 18:00 Vancomycin HCl 1.25 gm/Sodium Chloride 250 ml @ 83.333 mls/ hr Q12H IVPB Last administered on 01/05/17 01:04; Admin Dose 83.333 MLS/HR; Start 01/04/17 at 01: 00 Norepinephrine/ Dextrose (Levophed/D5W) 500 ml @ 1,875 mls/hr TITRATE IV ; Start 01/03/17 at 23:30 Desmopressin Acetate 1 mcg 1 mcg BID IV Last administered on 01/05/17 09:13; Admin Dose 1 MCG; Start 01/04/17 at 09:00 Potassium Chloride (KCl 40 MEQ/250 ML NS) 250 ml @ 62.5 mls/hr ONCE ONCE IVPB Last administered on 01/05/17 08:34; Admin Dose 62.5 MLS/HR; Start 01/05/17 at 07:30; Stop 01/05/17 at 11:29 Miscellaneous Information (*Rx Drug Level Order Reminder*) VANCOMYCIN TROUGH AT 0000 ONCE ONCE XX ; Start 01/06/17 at 00:00; Stop 01/06/17 at 00:01 PRABHAKAR BRIGGS Jan 05, 2017 10:27
--- NOTE | 2017-01-05 11:31 | EN ---
Date/Time of Note Date/Time of Note DATE: 01/05/17 TIME: 11:29 Event Note Medicine Medicine Event Note Patient underwent apnea testing short while ago, the results are consistent with brain . I did have a very detailed discussion with the patient's as well as patient's mother and apprised them of the findings. The family has accepted the findings. However family is not ready at this point for her to be extubated. Patient is a potential organ donor. Organ transplant team is at site. They are going to discuss with the family about organ donation. PRABHAKAR BRIGGS Jan 05, 2017 11:31
--- NOTE | 2017-01-05 12:49 | PRO ---
DATE OF PROCEDURE: 01/04/2017 PROCEDURE PERFORMED: EEG. HISTORY: The patient is a 26-year-old woman with cardiorespiratory arrest. This EEG was done per ACLS protocol. CURRENT MEDICATIONS: Keppra. PROCEDURE: Utilizing a 16 channel EEG machine cap scalp electrodes were applied as per 10/20 [employer] system. Ear to ear and ear to scalp montages were used and electrical impedances were measured and reported. DESCRIPTION: During a resting state, there was no discernible background activity noted. By decreasing the sensitivity, EKG artifact became more pronounced. INTERPRETATION: This is an abnormal EEG consistent with brain . Please correlate with neurological examination, cold caloric test and apnea test. Dictated By: Myriam Friend MD /guillaume/traci /Document#: [id number]
--- NOTE | 2017-01-05 14:12 | PN ---
Date/Time of Note Date/Time of Note DATE: 01/05/17 TIME: 14:08 Assessment/Plan VTE Prophylaxis VTE Prophylaxis Intervention: SCD's Lines/Catheters IV Catheter Type (from Nrs): Central Line Central line still needed: Yes Urinary Cath still in place: Yes Reason Cath still needed: terminal illness/intractable pain Assessment/Plan Chief Complaint/Hosp Course 1. Anoxic brain injury - Patient conditions remains the same - Neurology on board and recommendations appreciated. Initial EEG showed periodic lateralizing epileptiform activity consistent with seizure activity. Keppra dose increased to 1500mg IV - Repeat EEG as needed - MRI revealed extensive restricted diffusion throughout the cortex of both hemispheres with most severe involvement of the inferior frontal lobes and the occipital lobes. There is also diffuse abnormal restricted diffusion involving the basal ganglia and thalami as well as the brainstem with evidence -Apnea shown on apnea test. 2. Acute respiratory failure s/p Cardiac arrest - Still remains intubated and unresponsive - Unknown etiology. She was taken to [facility] and found to have clean coronaries with EF 20% - Cardiology on board and recommendations appreciated. 3. New onset seizures - Will continue on antiepileptics - EEG showed periodic lateralizing epileptiform activity consistent with seizure activity - Increase in Keppra dose and repeat EEG today 4. Abdominal pain/weight loss/menstrual abnormalities - With present evidence of anoxic brain damage, will not pursue workup at this time 5. Diabetes insipidus - Nephrology on board and recommendations appreciated - Patient currently on DDAVP, adjusted per nephro. 6. Leukocytosis- normalized - Unknown source. Currently receiving broad spectrum Vanc and Cefepime 7. Hypokalemia - will continue monitoring and replace as needed 8. Disposition -awaiting neurology/pulm recs -poor prognosis -patient likely has brain >30 minutes of critical care time was spent with patient. Problems: Subjective 24 Hr Interval Summary Free Text/Dictation patient remains intubated with no appreciable movement. no cough/gag. apnea test positive for apnea. EEG in the past negative for brainwave activity. Exam/Review of Systems Vital Signs Vitals Vital Signs Date Time Temp Pulse Resp B/P Pulse Ox O2 Delivery O2 Flow Rate FiO2 01/05/17 13:26 90 12 100 30 01/05/17 13:00 96/59 Mechanical Ventilator 01/05/17 11:55 98.0 Intake and Output 01/04/17 01/04/17 01/05/17 15:00 23:00 07:00 Intake Total 920 ml 1055 ml 950 ml Output Total 631 ml 314 ml 435 ml Balance 289 ml 741 ml 515 ml Exam General: Intubated on mechanical ventilation, remains nonresponsive CVS: Regular rhythm, tachycardic. no murmurs Lungs: diminished breath sounds, no crackles, or wheezes Abdomen: Soft , nontender, nondistended . No guarding no rebound tenderness Extremities: Normal to inspection, no edema no cyanosis Neuro: pupils nonreactive b/l. no gag/cough reflex elicited with deep stimulation, no response to stimuli in all 4 extremities and sternal rub. Results Result Diagram: 01/05/17 0400 01/05/17 1219 Results 24 hrs Laboratory Tests Test 01/04/17 15:25 01/04/17 18:22 01/04/17 18:53 01/05/17 00:38 Blood Gas Specimen Source Blood arterial Blood arterial Arterial Blood Date Drawn 01/04/2017 3:40:13 PM 01/04/2017 6:20:00 PM Arterial Blood pH (Temp corrected) 7.498 H 7.206 *L Arterial Blood pCO2 (Temp correct) 28.0 L 61.8 H Arterial Blood pO2 (Temp corrected) 131.5 H 448.2 H Arterial Blood HCO3 21.2 L 23.9 Arterial Blood Base Excess -1.3 -4.5 L Arterial Blood Oxygen Saturation 98.0 99.1 H Virgilio Test ACCEPTAB ACCEPTAB Arterial Blood Gas Puncture Site Right Radial Right Radial Arterial Blood Carboxyhemoglobin 0.1 0.1 Arterial Blood Methemoglobin 0.1 0.4 Blood Gas A-a O2 Differential 49.5 H 203.0 H Oxyhemoglobin Percent 97.8 98.6 Total Hemoglobin 9.5 L 10.3 L Blood Gas Temperature 37.0 37.0 Blood Gas Respiration Rate 16.0 Blood Gas Actual Respiration Rate 16 Blood Gas Modality VENT - AC NASAL CANNULA FiO2 30.0 100.0 Blood Gas Tidal Volume 500.0 Blood Gas Low PEEP Setting 5.0 Blood Gas Critical Value Read Back Jennifer ORONA RN Blood Gas Notified Whom RDIX DT Blood Gas Notified Time 01/04/2017 3:53:49 PM 01/04/2017 6:28:00 PM Sodium Level 138 136 Test 01/05/17 04:00 01/05/17 08:53 01/05/17 09:55 01/05/17 12:19 White Blood Count 6.6 Red Blood Count 3.07 L Hemoglobin 8.5 L Hematocrit 26.3 L Mean Corpuscular Volume 85.7 Mean Corpuscular Hemoglobin 27.7 L Mean Corpuscular Hemoglobin Concent 32.3 Red Cell Distribution Width 13.3 Platelet Count 164 Mean Platelet Volume 11.6 H Neutrophils % 70.6 Lymphocytes % 13.6 L Monocytes % 10.7 Eosinophils % 4.0 Basophils % 0.3 Nucleated Red Blood Cells % 0.0 Neutrophils # 4.6 Lymphocytes # 0.9 Monocytes # 0.7 Eosinophils # 0.3 Basophils # 0.0 Nucleated Red Blood Cells # 0.0 Sodium Level 140 145 H Potassium Level 3.1 L Chloride Level 113 H Carbon Dioxide Level 26 Anion Gap 4 L Blood Urea Nitrogen 5 L Creatinine 0.64 Glucose Level 90 Calcium Level 7.6 L Phosphorus Level 4.3 Magnesium Level 1.9 Blood Gas Specimen Source Blood arterial Blood arterial Arterial Blood Date Drawn 01/05/2017 9:05:51 AM 01/05/2017 9:55:34 AM Arterial Blood pH (Temp corrected) 7.451 H 7.292 *L Arterial Blood pCO2 (Temp correct) 37.5 58.0 H Arterial Blood pO2 (Temp corrected) 91.8 407.8 H Arterial Blood HCO3 25.5 27.4 H Arterial Blood Base Excess 1.6 0.3 Arterial Blood Oxygen Saturation 96.5 99.3 H Virgilio Test ACCEPTAB N/A Arterial Blood Gas Puncture Site Right Radial Right Brachial Arterial Blood Carboxyhemoglobin 0.2 0.2 Arterial Blood Methemoglobin 0.3 0.6 Blood Gas A-a O2 Differential 78.0 H 247.2 H Oxyhemoglobin Percent 96.0 98.5 Total Hemoglobin 9.4 L 9.2 L Blood Gas Temperature 37.0 37.0 Blood Gas Respiration Rate 12.0 Blood Gas Actual Respiration Rate 12 Blood Gas Modality VENT - AC APNEA TEST FiO2 30.0 100.0 Blood Gas Tidal Volume 500.0 Blood Gas Low PEEP Setting 5.0 Blood Gas Notified Whom SARANYA BEAVER Blood Gas Notified Time 01/05/2017 9:17:56 AM 01/05/2017 10:06:15 AM Blood Gas Critical Value Read Back T DICKENS RN Medications Medications Current Medications Morphine Sulfate (morphine) 2 mg Q2H PRN IV FOR NON CARDIAC PAIN (4-10) Last administered on 01/01/17 23:48; Admin Dose 2 MG; Start 12/30/16 at 06:30 Ondansetron HCl (Zofran Inj) 4 mg Q6H PRN IV NAUSEA AND/OR VOMITING; Start at 07:00 Lorazepam (Ativan) 1 mg Q2H PRN IV ANXIETY Last administered on 12/30/16 09:41 ; Admin Dose 1 MG; Start 12/30/16 at 07:00 Famotidine (Pepcid Iv) 20 mg DAILY IV Last administered on 01/05/17 09:06; Admin Dose 20 MG; Start 12/31/16 at 09:00 Acetaminophen (Tylenol Supp) 650 mg Q4H PRN [place] TEMP > 37C Last administered on 01/01/17 23:48; Admin Dose 650 MG; Start 12/30/16 at 07:00 Meperidine HCl (Demerol) 12.5 mg Q4H PRN IV POST OPERATIVE SHIVERING; Start at 07:00 Meperidine HCl (Demerol) 25 mg Q4H PRN IV POST OPERATIVE SHIVERING; Start 12/30 at 07:00 Eye Lubricant (Akwa Oint) 1 applic Q6 BOTH EYES Last administered on 01/05/17 11:52; Admin Dose 1 APPLIC; Start 12/30/16 at 12:00 Eye Lubricant (Artificial Tears Oph) 2 drop Q6 BOTH EYES Last administered on 11:52; Admin Dose 2 DROP; Start 12/30/16 at 12:00 Lorazepam 2 mg 2 mg Q6H PRN IV seizure Last administered on 12/30/16 09:41; Admin Dose 2 MG; Start 12/30/16 at 07:30 Fentanyl 100 ml @ 2.5 mls/hr TITRATE IV Last administered on 12/30/16 23:01; Admin Dose 2.5 MLS/HR; Start 12/30/16 at 07:30 Midazolam HCl (Versed) 50 ml @ 1 mls/hr TITRATE IV Last administered on 18:28; Admin Dose 7 MLS/HR; Start 12/30/16 at 08:00 Miscellaneous Information 1 ea NOTE XX ; Start 12/30/16 at 09:00 Glucose (Glutose) 15 gm Q15M PRN PO DECREASED GLUCOSE; Start 12/30/16 at 09:00 Glucose (Glutose) 22.5 gm Q15M PRN PO DECREASED GLUCOSE; Start 12/30/16 at 09: 00 Dextrose (D50w Syringe) 25 ml Q15M PRN IV DECREASED GLUCOSE; Start 12/30/16 at 09:00 Dextrose (D50w Syringe) 50 ml Q15M PRN IV DECREASED GLUCOSE; Start 12/30/16 at 09:00 Glucagon (Glucagen) 1 mg Q15M PRN IM DECREASED GLUCOSE; Start 12/30/16 at 09:00 Glucose (Glutose) 15 gm Q15M PRN BUCCAL DECREASED GLUCOSE; Start 12/30/16 at 09 :00 Metoprolol Tartrate 25 mg 25 mg BID GTB Last administered on 01/04/17 08:53; Admin Dose 25 MG; Start 01/01/17 at 14:00 Valproate Sodium 500 mg/Dextrose 55 ml @ 55 mls/hr Q6 IVPB Last administered on 01/05/17 11:52; Admin Dose 55 MLS/HR; Start 01/02/17 at 18:00 Levetiracetam 100 ml @ 400 mls/hr Q12 IVPB Last administered on 01/05/17 09: 06; Admin Dose 400 MLS/HR; Start 01/02/17 at 21:00 Sodium Chloride 1,000 ml @ 50 mls/hr Q20H IV Last administered on 01/05/17 12 :12; Admin Dose 50 MLS/HR; Start 01/03/17 at 18:00 Norepinephrine/ Dextrose (Levophed/D5W) 500 ml @ 1,875 mls/hr TITRATE IV ; Start 01/03/17 at 23:30 Desmopressin Acetate (Ddavp) 1 mcg BID IV Last administered on 01/05/17 09:13 ; Admin Dose 1 MCG; Start 01/04/17 at 09:00 SARAH LEWIS Jan 05, 2017 14:12
--- NOTE | 2017-01-05 19:54 | CONS ---
Date/Time of Note Date/Time of Note DATE: 01/05/17 TIME: 19:51 Assessment/Plan Assessment/Plan Chief Complaint/Hosp Course Assessment: Status post ventricular fibrillation cardiac arrest - suspect ventricular arrhythmia in setting of underlying cardiomyopathy, normal coronary arteries on angiography Nonischemic cardiomyopathy - LVEF 20-25% on echocardiogram, function may be acutely worse status post cardiac arrest Seizures - on anti-epileptic medications per neurology Anoxic brain injury - possible brain Recommendations: -continue metoprolol, as blood pressure can tolerate -follow up neurology Problems: Consultation Date/Type/Reason Admit Date/Time Dec 30, 2016 at 06:20 Initial Consult Date 12/30/16 Type of Consultation: Cardiology 24 HR Interval Summary Free Text/Dictation Remains intubated an unresponsive. MRI consistent with extensive anoxic brain injury. Apnea test reported to be positive for apnea. Detailed Summary Additional Comments Unable to obtain review of systems due to patient's mental status. Exam/Review of Systems Vital Signs Vitals Vital Signs Date Time Temp Pulse Resp B/P Pulse Ox O2 Delivery O2 Flow Rate FiO2 01/05/17 19:00 91 12 90/47 100 Mechanical Ventilator 01/05/17 17:14 30 01/05/17 15:00 97.6 Intake and Output 01/04/17 01/04/17 01/05/17 15:00 23:00 07:00 Intake Total 920 ml 1055 ml 950 ml Output Total 631 ml 314 ml 435 ml Balance 289 ml 741 ml 515 ml Exam Constitutional: No alert, No distress Psych: No nl mood/affect Head: atraumatic, normocephalic Eyes: nl conjunctiva, nl lids ENMT: intubated Respiratory: clear to auscultation, No wheezing Cardiovascular: regular rate and rhythm, No murmurs/extra sounds Gastrointestinal: non-tender Musculoskeletal: nl extremities to inspection Extremities: No clubbing, No cyanosis, No edema Neurological: No nl mental status, No nl speech Results Result Diagram: 01/05/17 0400 01/05/17 1804 Results 24 hrs Laboratory Tests Test 01/05/17 00:38 01/05/17 04:00 01/05/17 08:53 01/05/17 09:55 Sodium Level 136 140 White Blood Count 6.6 Red Blood Count 3.07 L Hemoglobin 8.5 L Hematocrit 26.3 L Mean Corpuscular Volume 85.7 Mean Corpuscular Hemoglobin 27.7 L Mean Corpuscular Hemoglobin Concent 32.3 Red Cell Distribution Width 13.3 Platelet Count 164 Mean Platelet Volume 11.6 H Neutrophils % 70.6 Lymphocytes % 13.6 L Monocytes % 10.7 Eosinophils % 4.0 Basophils % 0.3 Nucleated Red Blood Cells % 0.0 Neutrophils # 4.6 Lymphocytes # 0.9 Monocytes # 0.7 Eosinophils # 0.3 Basophils # 0.0 Nucleated Red Blood Cells # 0.0 Potassium Level 3.1 L Chloride Level 113 H Carbon Dioxide Level 26 Anion Gap 4 L Blood Urea Nitrogen 5 L Creatinine 0.64 Glucose Level 90 Calcium Level 7.6 L Phosphorus Level 4.3 Magnesium Level 1.9 Blood Gas Specimen Source Blood arterial Blood arterial Arterial Blood Date Drawn 01/05/2017 9:05:51 AM 01/05/2017 9:55:34 AM Arterial Blood pH (Temp corrected) 7.451 H 7.292 *L Arterial Blood pCO2 (Temp correct) 37.5 58.0 H Arterial Blood pO2 (Temp corrected) 91.8 407.8 H Arterial Blood HCO3 25.5 27.4 H Arterial Blood Base Excess 1.6 0.3 Arterial Blood Oxygen Saturation 96.5 99.3 H Virgilio Test ACCEPTAB N/A Arterial Blood Gas Puncture Site Right Radial Right Brachial Arterial Blood Carboxyhemoglobin 0.2 0.2 Arterial Blood Methemoglobin 0.3 0.6 Blood Gas A-a O2 Differential 78.0 H 247.2 H Oxyhemoglobin Percent 96.0 98.5 Total Hemoglobin 9.4 L 9.2 L Blood Gas Temperature 37.0 37.0 Blood Gas Respiration Rate 12.0 Blood Gas Actual Respiration Rate 12 Blood Gas Modality VENT - AC APNEA TEST FiO2 30.0 100.0 Blood Gas Tidal Volume 500.0 Blood Gas Low PEEP Setting 5.0 Blood Gas Notified Whom CHIDID SARANYA Blood Gas Notified Time 01/05/2017 9:17:56 AM 01/05/2017 10:06:15 AM Blood Gas Critical Value Read Back T CHRISTOPH RN Test 01/05/17 12:19 01/05/17 18:04 Sodium Level 145 H 146 H Medications Medications Current Medications Morphine Sulfate (morphine) 2 mg Q2H PRN IV FOR NON CARDIAC PAIN (4-10) Last administered on 01/01/17t 23:48; Admin Dose 2 MG; Start 12/30/16 at 06:30 Ondansetron HCl (Zofran Inj) 4 mg Q6H PRN IV NAUSEA AND/OR VOMITING; Start at 07:00 Lorazepam (Ativan) 1 mg Q2H PRN IV ANXIETY Last administered on 12/30/16 09:41 ; Admin Dose 1 MG; Start 12/30/16 at 07:00 Famotidine (Pepcid Iv) 20 mg DAILY IV Last administered on 01/05/17 09:06; Admin Dose 20 MG; Start 12/31/16 at 09:00 Acetaminophen (Tylenol Supp) 650 mg Q4H PRN [place] TEMP > 37C Last administered on 01/01/17 23:48; Admin Dose 650 MG; Start 12/30/16 at 07:00 Meperidine HCl (Demerol) 12.5 mg Q4H PRN IV POST OPERATIVE SHIVERING; Start at 07:00 Meperidine HCl (Demerol) 25 mg Q4H PRN IV POST OPERATIVE SHIVERING; Start 12/30 at 07:00 Eye Lubricant (Akwa Oint) 1 applic Q6 BOTH EYES Last administered on 01/05/17 17:26; Admin Dose 1 APPLIC; Start 12/30/16 at 12:00 Eye Lubricant (Artificial Tears Oph) 2 drop Q6 BOTH EYES Last administered on 17:26; Admin Dose 2 DROP; Start 12/30/16 at 12:00 Lorazepam 2 mg 2 mg Q6H PRN IV seizure Last administered on 12/30/16 09:41; Admin Dose 2 MG; Start 12/30/16 at 07:30 Fentanyl 100 ml @ 2.5 mls/hr TITRATE IV Last administered on 12/30/16 23:01; Admin Dose 2.5 MLS/HR; Start 12/30/16 at 07:30 Midazolam HCl (Versed) 50 ml @ 1 mls/hr TITRATE IV Last administered on 18:28; Admin Dose 7 MLS/HR; Start 12/30/16 at 08:00 Miscellaneous Information 1 ea NOTE XX ; Start 12/30/16 at 09:00 Glucose (Glutose) 15 gm Q15M PRN PO DECREASED GLUCOSE; Start 12/30/16 at 09:00 Glucose (Glutose) 22.5 gm Q15M PRN PO DECREASED GLUCOSE; Start 12/30/16 at 09: 00 Dextrose (D50w Syringe) 25 ml Q15M PRN IV DECREASED GLUCOSE; Start 12/30/16 at 09:00 Dextrose (D50w Syringe) 50 ml Q15M PRN IV DECREASED GLUCOSE; Start 12/30/16 at 09:00 Glucagon (Glucagen) 1 mg Q15M PRN IM DECREASED GLUCOSE; Start 12/30/16 at 09:00 Glucose (Glutose) 15 gm Q15M PRN BUCCAL DECREASED GLUCOSE; Start 12/30/16 at 09 :00 Metoprolol Tartrate 25 mg 25 mg BID GTB Last administered on 01/04/17 08:53; Admin Dose 25 MG; Start 01/01/17 at 14:00 Valproate Sodium 500 mg/Dextrose 55 ml @ 55 mls/hr Q6 IVPB Last administered on 01/05/17 17:26; Admin Dose 55 MLS/HR; Start 01/02/17 at 18:00 Levetiracetam 100 ml @ 400 mls/hr Q12 IVPB Last administered on 01/05/17 09: 06; Admin Dose 400 MLS/HR; Start 01/02/17 at 21:00 Sodium Chloride 1,000 ml @ 50 mls/hr Q20H IV Last administered on 01/05/17 12 :12; Admin Dose 50 MLS/HR; Start 01/03/17 at 18:00 Norepinephrine/ Dextrose (Levophed/D5W) 500 ml @ 1,875 mls/hr TITRATE IV ; Start 01/03/17 at 23:30 Desmopressin Acetate (Ddavp) 1 mcg BID IV Last administered on 01/05/17 09:13 ; Admin Dose 1 MCG; Start 01/04/17 at 09:00 TARAS GARCIA MD Jan 05, 2017 19:54
[2017-01-05] MEDS ORDERED: morphine (DRIP) 100 MG/100 ML 100 ML IV SCH (21:00)
--- NOTE | 2017-01-06 16:23 | DES ---
Date/Time of Note Date/Time of Note DATE: 01/06/17 TIME: 16:22 Discharge/ Summary Admission/Discharge Info Admit Date/Time Dec 30, 2016 at 06:20 Discharge Date/Time Jan 05, 2017 at 22:20 Final Diagnosis Anoxic brain secondary to cardiopulmonary arrest Preliminary Cause of Cardiopulmonary arrest secondary to unknown etiology Hospital Course Patient is a 26-year-old female who presents to the hospital after suffering cardiopulmonary arrest in the field. Patient had a history of migraines were brought in after being found unresponsive by her in the radiology physician. Patient had multiple episodes of ventricular fibrillation requiring defibrillation, was stabilized and brought to the ED where she again underwent cardiopulmonary arrest but also resuscitated. During the course of this admission patient underwent cardiac cath which show normal coronaries but an EF of 20%, however cardiology states that this could be due secondary to cardiac arrest. Over extensive ICU stay, patient's was evaluated by multiple consultants who could not find an etiology for sudden cardiac in this patient. After undergoing multiple anoxic brain injury exams by neurology and pulmonology including apnea test, cold caloric contrast, neurologic test, and EEG it was determined the patient had severe brain injury that led to anoxic brain . Overnight patient deteriorated further and patient's decided to extubate patients with comfort measures, but refused to have autopsy for etiology. Time of was stated at 2210 on January 05, 2017, by Dr. Jersey Amezcua. Diagnosis Anoxic brain Cardiopulmonary arrest, V. fib arrest New onset seizures Diabetes insipidus Electrolyte derangement Acute respiratory failure Leukocytosis Pending Labs/Cultures Laboratory Tests Test 01/05/17 18:04 Sodium Level 146mmol/L (135-144) SARAH LEWIS Jan 06, 2017 16:23
== END 2017-01-05 22:20 | disposition expired | DRG 207 ==
LOC: E/R 04:15 → SDS 04:25 → CCL 04:25 → ICU 06:20
PROVIDERS: ADMIT Internal Medicine; ATTEND Internal Medicine
PROC: 05H633Z Insertion of Infusion Device into Left Subclavian Vein, Percutaneous Approach (ICD-10-PCS; 2016-12-30)
PROC: 4A023N7 Measurement of Cardiac Sampling and Pressure, Left Heart, Percutaneous Approach (ICD-10-PCS; 2016-12-30)
PROC: B211YZZ Fluoroscopy of Multiple Coronary Arteries using Other Contrast (ICD-10-PCS; 2016-12-30)
PROC: B215YZZ Fluoroscopy of Left Heart using Other Contrast (ICD-10-PCS; 2016-12-30)
PROC: 0BH17EZ Insertion of Endotracheal Airway into Trachea, Via Natural or Artificial Opening (ICD-10-PCS; 2016-12-30)
PROC: 5A1955Z Respiratory Ventilation, Greater than 96 Consecutive Hours (ICD-10-PCS; principal; 2016-12-30 05:00)
DX: J96.00 Acute respiratory failure, unspecified whether with hypoxia or hypercapnia (principal); I49.01 Ventricular fibrillation; R57.9 Shock, unspecified; G93.1 Anoxic brain damage, not elsewhere classified; E23.2 Diabetes insipidus; I42.8 Other cardiomyopathies; E87.1 Hypo-osmolality and hyponatremia; I46.2 Cardiac arrest due to underlying cardiac condition; R56.9 Unspecified convulsions; E83.39 Other disorders of phosphorus metabolism; G25.3 Myoclonus; E87.6 Hypokalemia; R63.4 Abnormal weight loss; R35.8 Other polyuria; R10.9 Unspecified abdominal pain; D72.829 Elevated white blood cell count, unspecified; Z68.23 Body mass index [BMI] 23.0-23.9, adult
CPT/HCPCS: 31500; 36600; 70450; 70551; 71010; 74000; 80048; 80053; 80164; 80202; 80307; 81001; 81003; 82803; 82962; 83036; 83735; 83930; 83935; 84100; 84295; 84300; 84484; 84588; 85025; 85610; 85730; 87081; 92950; 93005; 93306; 93458; 94002; 94003; 94770; 95819; C1751; C1760; C1769; C1887; C1894; J0171; J0610; J0692; J1644; J1815; J1953; J2001; J2060; J2250; J2270; J3010; J3370; J3475; J3480; J7030; J7040; J7042; J7050; J7060; J7070